=== PATIENT | female | born 1965 | race African-American/Black ===

== ENCOUNTER 2018-07-30 07:38 | Emergency (ER) | payer SELFPAY ==
[2018-07-30] MEDS ORDERED: NORMAL SALINE 1000 ML 1,000 ML IV ONE ×2 (08:11→09:55)
[2018-07-30] MEDS ORDERED: ONDANSETRON HCL INJ/PF 4 MG/2 ML SDV IV ONE (08:11)
[2018-07-30] MEDS ORDERED: DEXTROSE 5%-LACTATED RINGERS 1,000 ML IV ONE (09:17)
[2018-07-30 09:22] LABS: ABSOLUTE LYMPHOCYTES (AUTO) 0.6 10^3/uL (0.5-4.7); ABSOLUTE MONOCYTES (AUTO) 0.8 10^3/uL (0.1-1.4); ABSOLUTE NEUT (AUTO) 8.7 10^3/uL (1.7-8.2); BASOPHILS % (AUTO) 0.2 % (0-2); HEMATOCRIT 42.7 % (36.0-47.0); HEMOGLOBIN 14.7 g/dL (12.0-15.5); LYMPHOCYTES % (AUTO) 5.7 % (13-45); MEAN CORPUSCULAR HEMOGLOBIN 28.7 pg (27.0-33.4); MEAN CORPUSCULAR HGB CONC 34.4 g/dL (32.0-36.0); MEAN CORPUSCULAR VOLUME 84 fl (80-97); PLATELET COUNT 199 10^3/uL (150-450); RED BLOOD COUNT 5.11 10^6/uL (3.72-5.28); RED CELL DISTRIBUTION WIDTH 13.7 % (11.5-14.0); SEGMENTED NEUTROPHILS % (AUTO) 86.1 % (42-78); TOTAL CELLS COUNTED % (AUTO) 100 %; WHITE BLOOD COUNT 10.2 10^3/uL (4.0-10.5)
[2018-07-30 09:40] LABS: ALANINE AMINOTRANSFERASE 24 U/L (9-52); ALBUMIN 4.1 g/dL (3.5-5.0); ALKALINE PHOSPHATASE 123 U/L (38-126); ANION GAP 10 (5-19); ASPARTATE AMINO TRANSFERASE 21 U/L (14-36); BILIRUBIN,DIRECT 0.4 mg/dL (0.0-0.4); BLOOD UREA NITROGEN 11 mg/dL (7-20); CALCIUM 10.2 mg/dL (8.4-10.2); CARBON DIOXIDE 29 mmol/L (22-30); CHLORIDE 101 mmol/L (98-107); CREATINE KINASE 35 U/L (30-135); GLUCOSE 350 mg/dL (75-110); POTASSIUM 4.3 mmol/L (3.6-5.0); SODIUM 140.2 mmol/L (137-145); TOTAL PROTEIN 6.9 g/dL (6.3-8.2)
[2018-07-30 09:53] LABS: CREATINE KINASE MB < 0.22 ng/mL (<4.55); TROPONIN I < 0.012 ng/mL
[2018-07-30 10:04] LABS: APPEARANCE,URINE CLOUDY; BILIRUBIN,URINE NEGATIVE (NEGATIVE); COLOR,URINE YELLOW; GLUCOSE, URINE >=500 mg/dL (NEGATIVE); KETONES,URINE 20 mg/dL (NEGATIVE); LEUKOCYTE ESTERASE,URINE LARGE (NEGATIVE); NITRITE,URINE POSITIVE (NEGATIVE); PROTEIN,URINE NEGATIVE (NEGATIVE); URINE SPECIFIC GRAVITY 1.018
[2018-07-30 10:22] LABS: URINE AMPHETAMINES SCREEN NEGATIVE; URINE BARBITURATES SCREEN NEGATIVE; URINE BENZODIAZEPINES SCREEN NEGATIVE; URINE COCAINE SCREEN UNCONFIRMED POSITIVE; URINE MARIJUANA (THC) SCREEN UNCONFIRMED POSITIVE; URINE METHADONE SCREEN NEGATIVE; URINE PHENCYCLIDINE SCREEN NEGATIVE
[2018-07-30] MEDS ORDERED: CEFTRIAXONE 1 GM/D5W RTU 1 GM/50 ML RTUPB IV ONE (10:29)
[2018-07-30 12:30] VITALS: BP 127/82
--- NOTE | 2018-07-30 13:26 | EKG REPORT ---
SEVERITY:- ABNORMAL ECG - SINUS RHYTHM SHORT MD INTERVAL, ACCELERATED AV CONDUCTION RIGHT ATRIAL ABNORMALITY NONSPECIFIC T ABNORMALITIES, LATERAL LEADS : Confirmed by: Toi Parker MD 30-Jul-2018 13:26:24
--- NOTE | 2018-08-03 07:39 | ER Document Report ---
Entered by CHARLENE GUILLEN SCRIBE 07/30/18 0821 Acting as scribe for:LASHELL WISEMAN MD ED Flu Like - General Chief Complaint: Flu Symptoms Stated Complaint: BODY PAIN Time Seen by Provider: 07/30/18 08:01 Mode of Arrival: Wheelchair Information source: Patient Notes: 53-year-old female who presents to the emergency department today with complaints of feeling "generally weak" for the last 2 days with associated nausea and vomiting. Patient mentions that she developed right-sided abdominal pain yesterday as well. Patient denies any cough or fevers. TRAVEL OUTSIDE OF THE [place] IN LAST 30 DAYS: No - Related Data Allergies/Adverse Reactions: No Known Allergies Allergy (Verified 07/30/18 07:38) Past Medical History - General Information source: Patient - Social History Smoking Status: Current Every Day Smoker Cigarette use (# per day): Yes Lives with: Family Family History: Reviewed & Not Pertinent Review of Systems - Review of Systems Constitutional: See HPI, Weakness. denies: Fever EENT: No symptoms reported Cardiovascular: denies: Chest pain Respiratory: No symptoms reported Gastrointestinal: See HPI, Nausea, Vomiting Genitourinary: No symptoms reported Female Genitourinary: No symptoms reported Musculoskeletal: No symptoms reported Skin: No symptoms reported Hematologic/Lymphatic: No symptoms reported Neurological/Psychological: No symptoms reported -: Yes All other systems reviewed and negative Physical Exam - Vital signs Vitals: Temp Pulse Resp BP Pulse Ox 98.3 F 106 H 18 126/75 H 97 07/30/18 07:45 07/30/18 07:45 07/30/18 07:45 07/30/18 07:45 07/30/18 07:45 - Notes Notes: Physical Exam: General: Alert, appears well. HEENT: Normocephalic. Atraumatic. PERRL. Extraocular movements intact. Oropharynx clear. Dry mucous membranes. Neck: Supple. Non-tender. Respiratory: No respiratory distress. Clear and equal breath sounds bilaterally. Cardiovascular: Tachycardic, regular rhythm. Abdominal: Mild lower abdominal tenderness to palpation, mild right upper quadrant tenderness palpation. No distension. Normal Bowel Sounds. Back: Non-tender. No deformity or step off. Extremities: Moves all four extremities. Upper extremities: Normal inspection. Normal ROM. Lower extremities: Normal inspection. No edema. Normal ROM. Neurological: Normal cognition. AAOx4. Normal speech. Psychological: Normal affect. Normal Mood. Skin: Warm. Dry. Normal color. Course - Re-evaluation Re-evalutation: 07/30/18 09:55 Patient's blood sugar was reported at 350. Her second liter of fluid was D5LR, she had had about 100 mL's when the report came back so that was stopped and another liter of normal saline was given in place of the D5LR. 07/30/18 10:36 The patient's hemoglobin A1c was greater than 14, her urine showed a urinary tr act infection, drug screen was positive for cocaine and marijuana. - Vital Signs Vital signs: Temp Pulse Resp BP Pulse Ox 98.3 F 106 H 18 126/75 H 97 07/30/18 07:45 07/30/18 07:45 07/30/18 07:45 07/30/18 07:45 07/30/18 07:45 - Laboratory Result Diagrams: 07/30/18 09:03 07/30/18 09:03 Laboratory results interpreted by me: 07/30/18 07/30/18 07/30/18 09:03 09:03 09:03 Seg Neutrophils % 86.1 H Lymphocytes % 5.7 L Absolute Neutrophils 8.7 H Glucose 350 H Hemoglobin A1c % > 14.0 H Urine Glucose (UA) Urine Ketones Urine Blood Urine Nitrite Urine Urobilinogen Ur Leukocyte Esterase 07/30/18 09:45 Seg Neutrophils % Lymphocytes % Absolute Neutrophils Glucose Hemoglobin A1c % Urine Glucose (UA) >=500 H Urine Ketones 20 H Urine Blood MODERATE H Urine Nitrite POSITIVE H Urine Urobilinogen 2.0 H Ur Leukocyte Esterase LARGE H - EKG Interpretation by Me EKG shows normal: Sinus rhythm, Cecil, Intervals, QRS Complexes. abnormal: ST-T Waves - Nonspecific lateral T abnormalities Rate: Normal - 80 Rhythm: Other - Short UT interval, accelerated AV conduction P Waves: ALLISON When compared to previous EKG there are: Previous EKG unavailable Discharge - Discharge Clinical Impression: Cocaine abuse, Drug abuse, marijuana Urinary tract infection Qualifiers: Urinary tract infection type: site unspecified Hematuria presence: without hematuria Qualified Code(s): N39.0 - Urinary tract infection, site not specified Hyperglycemia due to type 2 diabetes mellitus Qualifiers: Diabetes mellitus nursing home insulin use: without nursing home use Qualified Code(s): E11.65 - Type 2 diabetes mellitus with hyperglycemia Nausea and vomiting Qualifiers: Vomiting type: unspecified Vomiting Intractability: non-intractable Qualified Code(s): R11.2 - Nausea with vomiting, unspecified Condition: Stable Disposition: HOME, SELF-CARE Additional Instructions: Urinary Tract Infection: Your evaluation indicates that you have a urinary tract infection. This is due to germs growing in the bladder. This is a common problem. This infection usually responds quickly to antibiotics. Your antibiotic should be taken exactly as prescribed. Drink plenty of fluids -- three to four quarts a day. Occasionally, a bladder anesthetic will be prescribed to help stop the feeling of urgency until the antibiotic has a chance to clear the infection. This may cause your urine to be dark orange. Certain urine infections require a culture. If the doctor obtained a culture, the results will be back in two days. You should call to see if a change in treatment is needed. A repeat urinalysis after you finish treatment is often recommended. The physician will let you know if further testing is required. Call the doctor if you develop fever, chills, flank pain, inability to urinate, or blood in the urine. Diabetes: You have an abnormally high blood sugar. This is called diabetes. Uncontrolled high blood sugar leads to early heart disease, strokes, nerve damage, eye damage, and kidney damage. All diabetics should follow a diet designed to control the blood sugar. Overweight diabetics should exercise regularly and lose weight. If this is not sufficient to control the blood sugar, pills or insulin shots are necessary. Younger people who develop diabetes almost always require insulin daily. Home testing of blood sugars or urine sugar is required. Diabetic teaching is available to help you figure insulin doses and monitor the blood sugar. Call the physician if there is faintness, excess sleepiness, or very rapid breathing. If hypoglycemia (LOW blood sugar) develops, symptoms are shakiness, weakness, sweating, and confusion. In this case, you should eat or drink something with sugar at once. Nausea or Vomiting, Nonspecific: Vomiting (or nausea without vomiting) can be caused by many different problems. Of course, it can mean that something's wrong with the stomach, such as "stomach flu," ulcers, or inflammation. But it can also be a symptom of a problem that has nothing to do with the stomach or intestines. Vomiting is common with severe headaches, earaches, and tonsillitis. We see it with pneumonia or heart attacks. Drugs can cause nausea. Many abdominal problems cause vomiting; for example, gallstones, kidney stones, pancreatitis, and intestinal obstruction (blocked bowels). In most cases, curing the vomiting depends on fixing the problem that caused it. For temporary relief, we may use an anti-nausea medicine. For home use, we can prescribe suppositories, chewable pills, pills that dissolve in the mouth, or liquid anti-nausea drugs. If the vomiting seems to be caused by a problem in the stomach, acid-suppressing drugs may be prescribed as well. It's important to avoid dehydration. Sip clear liquids. Take increasing amounts of fluid over the first 24 hours. Then start small amounts of bland foods (such as dry toast, applesauce, mashed potato). Avoid aspirin, tobacco, and alcohol. Gradually resume your usual diet. If the vomiting worsens, if the problem that's making you vomit worsens, or if there's evidence of bleeding in the stomach (such as black, tarry stool, bloody or black vomit, or lightheadedness), you should return immediately. Call your doctor if you aren't improved in 24 to 36 hours. Cocaine Abuse: Cocaine causes many dangerous medical problems. Problems can occur even with "usual" amounts. Cocaine affects judgement, creating a sense of invulnerability. Cocaine users often make bad decisions that seem "great" at the time. Most cocaine users eventually will be hurt by bad job performance, damaged personal relations, crime, and unsafe sexual practices. Toxic effects of cocaine can include seizures, hallucinations, delusions, high blood pressure, heart damage, or sudden . There's always the risk of a "bad batch." But heart attacks, brain hemorrhages, or cardiac arrest can occur unpredictably even with "normal" use. Injection of cocaine is risky for abscesses, endocarditis (heart infection), pneumonia, and AIDS. Withdrawal from cocaine often causes anxiety and drug cravings. Some users become paranoid and psychotic. Many treatment programs are available, but you must make the decision to quit. Medication can be prescribed to control the symptoms of cocaine toxicity (beta blockers or benzodiazepines). Withdrawal symptoms may require tranquilizers. Take the medications as prescribed. Drink plenty of fluids. Try to stop using illicit drugs. You are given a 30-day supply of the diabetes medicine. You should get a primary care provider to manage her diabetes before you run out of the medicine. RETURN TO THE EMERGENCY ROOM IF ANY NEW OR WORSENING SYMPTOMS. Prescriptions: Doxycycline Hyclate 100 mg PO BID #14 tablet. Glipizide [Glucotrol 5 mg Tablet] 5 mg PO DAILY #30 tablet I personally performed the services described in the documentation, reviewed and edited the documentation which was dictated to the scribe in my presence, and it accurately records my words and actions.
== END 2018-07-30 12:28 | disposition home or self-care (01) ==
LOC: ER 07:38
DX: N39.0 Urinary tract infection, site not specified (principal); E11.65 Type 2 diabetes mellitus with hyperglycemia; R53.1 Weakness; R11.2 Nausea with vomiting, unspecified; F14.10 Cocaine abuse, uncomplicated; F12.10 Cannabis abuse, uncomplicated; R00.0 Tachycardia, unspecified; F17.210 Nicotine dependence, cigarettes, uncomplicated
CPT/HCPCS: 93005; 36415; 87086; 82553; 82550; 85025; 87088; 80053; 81001; 84484; 87186; 80307; 83036; 83605; 93010; J2405; J7030; J0696

== ENCOUNTER 2018-08-27 15:38 | Inpatient (IN) | payer SELFPAY ==
[2018-08-27] MEDS ORDERED: NORMAL SALINE 1000 ML 1,000 ML IV ONE ×2 (15:51→16:23)
[2018-08-27 16:19] LABS: VENOUS BLOOD BASE EXCESS -12.1 mmol/L; VENOUS BLOOD HCO3 14.8 mmol/L (20-32); VENOUS BLOOD PCO2 37.3 mmHg (35-63); VENOUS BLOOD PH 7.22 (7.30-7.42)
[2018-08-27 16:20] LABS: HEMATOCRIT 49.7 % (36.0-47.0); HEMOGLOBIN 16.3 g/dL (12.0-15.5); MEAN CORPUSCULAR HEMOGLOBIN 28.1 pg (27.0-33.4); MEAN CORPUSCULAR HGB CONC 32.7 g/dL (32.0-36.0); MEAN CORPUSCULAR VOLUME 86 fl (80-97); PLATELET COUNT 210 10^3/uL (150-450); RED BLOOD COUNT 5.79 10^6/uL (3.72-5.28); WHITE BLOOD COUNT 26.3 10^3/uL (4.0-10.5)
--- NOTE | 2018-08-27 16:22 | ER Document Report ---
ED Blood Sugar Problem - General Chief Complaint: High Blood Sugar Stated Complaint: SUGAR LEVELS Time Seen by Provider: 08/27/18 15:51 Mode of Arrival: Stretcher Information source: Emergency Med Personnel TRAVEL OUTSIDE OF THE [place] IN LAST 30 DAYS: No - HPI Patient complains to provider of: High blood sugar, confused, vomiting Onset: Other - 3-4 days Onset/Duration: Gradual - Patient Quality of pain: Achy Severity: Moderate Pain Level: 3 Associated symptoms: Confusion, Dry mucous membranes - I called at 330, Nausea, Weakness Notes: Patient is a 53-year-old female who is a known diabetic, presenting to the emergency room today via EMS for nausea and vomiting x3 or 4 days, with decreased p.o. intake, confusion, combative, complaining of pain everywhere, with blood sugar measuring high on EMS glucometer, they report that their glucometer reads up to 750, anything above that is just read as high, EMS notes that her initial blood pressure was 90/50, they did provide IV fluids in route, they also found a bottle of glipizide that is prescribed to patient - Related Data Allergies/Adverse Reactions: No Known Allergies Allergy (Verified 07/30/18 07:38) Past Medical History - General Information source: Patient, Emergency Med Personnel - Social History Smoking Status: Unknown if Ever Smoked Family History: Reviewed & Not Pertinent Renal/ Medical History: Denies: Hx Peritoneal Dialysis Review of Systems - Review of Systems Constitutional: No symptoms reported EENT: No symptoms reported Cardiovascular: No symptoms reported Respiratory: No symptoms reported Gastrointestinal: See HPI, Nausea, Vomiting, Poor appetite, Poor fluid intake. denies: Abdominal pain Genitourinary: No symptoms reported Female Genitourinary: No symptoms reported Musculoskeletal: No symptoms reported Skin: No symptoms reported Hematologic/Lymphatic: No symptoms reported Neurological/Psychological: Confusion -: Yes All other systems reviewed and negative Physical Exam - Vital signs Vitals: Resp 22 H 08/27/18 16:00 Interpretation: Hypotensive, Tachycardic - General General appearance: Combative, Lethargic In distress: Moderate - HEENT Head: Normocephalic, Atraumatic Eyes: Normal Conjunctiva: Normal Eyelashes: Normal Pupils: PERRL Mucous membranes: Dry - With vomitus on breath Pharynx: Normal Neck: Normal - Respiratory Respiratory status: No respiratory distress Chest status: Nontender Breath sounds: Normal Chest palpation: Normal - Cardiovascular Rhythm: Irregularly irregular, Tachycardia - Abdominal Inspection: Normal Distension: No distension Bowel sounds: Normal Tenderness: Tender - Mild epigastric tenderness Organomegaly: No organomegaly - Back Back: Normal - Extremities General upper extremity: Normal inspection General lower extremity: Normal inspection - Neurological Orientation: Disoriented to events [place] Coma Scale Eye Opening: Spontaneous [place] Coma Scale Verbal: Confused [place] Coma Scale Motor: Obeys Commands [place] Coma Scale Total: 14 - Skin Skin Temperature: Warm Skin Moisture: Dry Skin Color: Normal Course - Re-evaluation Re-evalutation: 08/27/18 17:01 Patient mental status is improving, she is answering questions more ap propriately, she does remain tachycardic and appears to be in atrial fibrillation on the EKG. However on arrival her blood pressure was low, she appeared dry and had been vomiting for 3-5 days and patient denied any congestive heart failure so IV fluids were administered as first-line treatment. Although her Accu-Chek was read as high, no insulin was initially given to the patient as I was awaiting serum studies to confirm that her potassium was adequate and that no potassium replacement was required before providing insulin, immediately upon receiving patient's serum studies an insulin drip was ordered and the nursing staff was notified that this would be needed STAT, patient is noted to have significant leukocytosis, as well as WILLIE, leukocytosis and dehydration could be secondary to her excessive vomiting for 3 days, since she is dry she has not yet provided us with a urine for urinalysis to confirm presence or absence of a urinary tract infection, she does remain tachycardic in atrial fibrillation with RVR, however her blood pressure has been somewhat unstable secondary to her dehydration, therefore rate controlling medications have been held at this point in time, will plan to admit to ICU for diabetic ketoacidosis Patient discussed with hospitalist, Dr. Sifuentes who accepts for admission 08/27/18 19:19 Reviewed patient's urinalysis, evidence of urinary tract infection, I attempted to order a dose of Rocephin, however hospitalist service has already ordered it - Vital Signs Vital signs: Temp Pulse Resp BP Pulse Ox 99 F 20 112/85 96 08/27/18 18:45 08/27/18 19:47 08/27/18 19:31 08/27/18 19:47 - Laboratory Result Diagrams: 08/27/18 16:10 08/27/18 20:51 Laboratory results interpreted by me: 08/27/18 08/27/18 08/27/18 16:10 16:10 16:10 WBC 26.3 H RBC 5.79 H Hgb 16.3 H Hct 49.7 H RDW 16.0 H Seg Neuts % (Manual) 91 H Lymphocytes % (Manual) 3 L Abs Neuts (Manual) 23.9 H Abs Monocytes (Manual) 1.6 H VBG pH VBG HCO3 Sodium 131.0 L Chloride 85 L Carbon Dioxide 16 L Anion Gap 30 H BUN 61 H Creatinine 1.76 H Est GFR ( Amer) 36 L Est GFR (Non-Af Amer) 30 L Glucose 668 H* Serum Osmolality 337 H Direct Bilirubin 0.7 H Alkaline Phosphatase 215 H Albumin 3.4 L Urine Protein Urine Glucose (UA) Urine Ketones Urine Blood Ur Leukocyte Esterase 08/27/18 08/27/18 16:10 16:53 WBC RBC Hgb Hct RDW Seg Neuts % (Manual) Lymphocytes % (Manual) Abs Neuts (Manual) Abs Monocytes (Manual) VBG pH 7.22 L VBG HCO3 14.8 L Sodium Chloride Carbon Dioxide Anion Gap BUN Creatinine Est GFR ( Amer) Est GFR (Non-Af Amer) Glucose Serum Osmolality Direct Bilirubin Alkaline Phosphatase Albumin Urine Protein 30 H Urine Glucose (UA) >=500 H Urine Ketones 20 H Urine Blood LARGE H Ur Leukocyte Esterase MODERATE H - EKG Interpretation by Me Rate: Tachycardia Rhythm: A.Fib Critical Care Note - Critical Care Note Total time excluding time spent on procedures (mins): 45 Comments: Patient arrived confused, unable to provide an adequate history, Accu-Chek read as high Discharge - Discharge Clinical Impression: Diabetic ketoacidosis Qualifiers: Diabetes mellitus type: type 2 Condition: Serious Disposition: ADMITTED INPATIENT Admitting Provider: Hospitalist Unit Admitted: ICU
[2018-08-27 16:36] LABS: BLOOD UREA NITROGEN 61 mg/dL (7-20); CALCIUM 9.6 mg/dL (8.4-10.2)
[2018-08-27 16:37] LABS: ALANINE AMINOTRANSFERASE 20 U/L (9-52); ALBUMIN 3.4 g/dL (3.5-5.0); ALKALINE PHOSPHATASE 215 U/L (38-126); ASPARTATE AMINO TRANSFERASE 26 U/L (14-36); BILIRUBIN,DIRECT 0.7 mg/dL (0.0-0.4); BILIRUBIN,TOTAL 0.8 mg/dL (0.2-1.3); POTASSIUM 3.6 mmol/L (3.6-5.0); TOTAL PROTEIN 6.9 g/dL (6.3-8.2)
[2018-08-27 16:42] LABS: ABSOLUTE LYMPHOCYTES# (MANUAL) 0.8 10^3/uL (0.5-4.7); ABSOLUTE MONOCYTES # (MANUAL) 1.6 10^3/uL (0.1-1.4); ABSOLUTE NEUTROPHILS# (MANUAL) 23.9 10^3/uL (1.7-8.2); BASOPHILS % (MANUAL) 0 % (0-2); CARBON DIOXIDE 16 mmol/L (22-30); CHLORIDE 85 mmol/L (98-107); EOSINOPHILS % (MANUAL) 0 % (0-6); LYMPHOCYTES % (MANUAL) 3 % (13-45); MONOCYTES % (MANUAL) 6 % (3-13); SEGMENTED NEUTROPHILS % (MAN) 91 % (42-78); TOTAL CELLS COUNTED 100
[2018-08-27 16:45] LABS: ANISOCYTOSIS SLIGHT; PLATELET COMMENT ADEQUATE; POIKILOCYTOSIS SLIGHT; TEAR DROP CELLS SLIGHT; TOXIC GRANULATION 1+; TOXIC VACUOLATION PRESENT
[2018-08-27 16:46] LABS: ANION GAP 30 (5-19)
[2018-08-27 16:47] LABS: GLUCOSE 668 mg/dL (75-110)
[2018-08-27] MEDS ORDERED: DEXTROSE 40% GEL 15 GM TUBE PO PRN ×6 (16:54→17:36)
[2018-08-27] MEDS ORDERED: GLUCAGON,HUMAN RECOMB 1 MG INJ IM PRN ×2 (16:54→17:36)
[2018-08-27] MEDS ORDERED: DEXTROSE 50%-WATER 25 GM/50 ML DISP.SYRIN IV PRN ×6 (16:54→17:36)
[2018-08-27] MEDS ORDERED: INSULIN REG, HUMAN 100 UNIT/ML 3 ML VIAL (PYX) ONE (17:10)
[2018-08-27 17:22] LABS: APPEARANCE,URINE CLOUDY; BILIRUBIN,URINE NEGATIVE (NEGATIVE); COLOR,URINE YELLOW; GLUCOSE, URINE >=500 mg/dL (NEGATIVE); KETONES,URINE 20 mg/dL (NEGATIVE); LEUKOCYTE ESTERASE,URINE MODERATE (NEGATIVE); NITRITE,URINE NEGATIVE (NEGATIVE); PROTEIN,URINE 30 mg/dL (NEGATIVE); URINE SPECIFIC GRAVITY 1.014; UROBILINOGEN,URINE NEGATIVE mg/dL (<2.0)
[2018-08-27] MEDS: NORMAL SALINE 100 ML with INSULIN REGULAR, HUMAN 100 UNIT IV PRN ×2 (17:27)
[2018-08-27] MEDS ORDERED: PROMETHAZINE HCL INJ 25 MG/1 ML VIAL IV PRN (17:32)
[2018-08-27] MEDS ORDERED: ONDANSETRON HCL INJ/PF 4 MG/2 ML SDV IV PRN (17:32)
[2018-08-27] MEDS ORDERED: NORMAL SALINE 1000 ML 1,000 ML IV PRN (17:32)
[2018-08-27] MEDS ORDERED: GLUCAGON,HUMAN RECOMB 1 MG INJ SUBCUT PRN (17:32)
[2018-08-27 17:34] LABS: URINE AMPHETAMINES SCREEN NEGATIVE; URINE BARBITURATES SCREEN NEGATIVE; URINE BENZODIAZEPINES SCREEN NEGATIVE; URINE COCAINE SCREEN UNCONFIRMED POSITIVE; URINE MARIJUANA (THC) SCREEN NEGATIVE; URINE METHADONE SCREEN NEGATIVE; URINE PHENCYCLIDINE SCREEN NEGATIVE
[2018-08-27] MEDS ORDERED: NORMAL SALINE 100 ML with INSULIN REGULAR, HUMAN 100 UNIT IV PRN ×2 (17:36)
[2018-08-27] MEDS ORDERED: DILTIAZEM HCL INJ 25 MG/5 ML VIAL IV ONE (18:13)
--- NOTE | 2018-08-27 18:13 | PDOC H&P ---
History of Present Illness Admission Date/PCP: 08/27/18 17:14 Patient complains of: Patient brought in by EMS with complaints of high blood sugars. History of Present Illness: DENAE PEDERSEN is a 53 year old female with history of diabetes mellitus brought in by EMS with complaints of nausea vomiting for 3-4 days. Unable to get any information from the patient. EMS documented the blood sugar of 750. In the emergency room the fingerstick for glucose was high. No insulin was given until the serum glucose came back at 658. On discussion with the ER physician why no subq insulin was she became defensive and agitated and told me she has to wait for the serum glucose report by the lab test before giving the subcu insulin. I did report the incident to Dr. grewal hospitalist director. pt is in atrial fib with heart rate of 157 the issue is not addressed in the ER. Examination patient is unable to provide any history. Patient is combative. In the emergency room patient received 2 L of normal saline. Found to be urine drug screen is positive for marijuana and cocaine. Patient is going to be placed in IMCU. Past Medical History Cardiac Medical History: Reports: Atrial Fibrillation Endocrine Medical History: Reports: Diabetes Mellitus Type 2 Past Surgical History Past Surgical History: Reports: None Social History Information Source: Patient Smoking Status: Current Some Day Smoker Drugs: Cocaine, Marijuana - Advance Directive Resuscitation Status: Full Code Family History Family History: Reviewed & Not Pertinent Parental Family History Reviewed: Yes Children Family History Reviewed: Yes Sibling(s) Family History Reviewed.: Yes Medication/Allergy Home Medications: Doxycycline Hyclate 100 mg PO BID #14 tablet. 07/30/18 Glipizide [Glucotrol 5 mg Tablet] 5 mg PO DAILY #30 tablet 07/30/18 Allergies/Adverse Reactions: No Known Allergies Allergy (Verified 07/30/18 07:38) Review of Systems ROS unobtainable: Other - Patient is agitated and combative unable to get any history at all. Physical Exam Vital Signs: Temp Pulse Resp BP Pulse Ox 99.3 F 20 135/93 H 98 08/27/18 16:33 08/27/18 17:16 08/27/18 17:16 08/27/18 17:00 Intake & Output 08/26/18 08/27/18 08/28/18 06:59 06:59 06:59 Weight 70 kg General appearance: PRESENT: other - Mild to moderate distress Head exam: PRESENT: atraumatic Eye exam: PRESENT: PERRLA Mouth exam: PRESENT: moist, tongue midline Teeth exam: PRESENT: poor dentation Neck exam: ABSENT: carotid bruit, JVD, lymphadenopathy, thyromegaly Respiratory exam: PRESENT: clear to auscultation heather. ABSENT: rales, rhonchi, wheezes Cardiovascular exam: PRESENT: irregular rhythm, tachycardia GI/Abdominal exam: PRESENT: normal bowel sounds, soft. ABSENT: distended, guarding, mass, organolmegaly, rebound, tenderness Extremities exam: PRESENT: full ROM. ABSENT: calf tenderness, clubbing, pedal edema Neurological exam: PRESENT: alert, awake, oriented to person, oriented to place, oriented to time, oriented to situation, CN II-XII grossly intact. ABSENT: motor sensory deficit Skin exam: PRESENT: dry, intact, warm. ABSENT: cyanosis, rash Results Laboratory Results: 08/27/18 16:10 08/27/18 16:10 08/27/18 08/27/18 08/27/18 16:10 16:10 16:10 WBC 26.3 H RBC 5.79 H Hgb 16.3 H Hct 49.7 H MCV 86 MCH 28.1 MCHC 32.7 RDW 16.0 H Plt Count 210 Seg Neutrophils % Not Reportable Lymphocytes % Not Reportable Monocytes % Not Reportable Eosinophils % Not Reportable Basophils % Not Reportable Absolute Neutrophils Not Reportable Absolute Lymphocytes Not Reportable Absolute Monocytes Not Reportable Absolute Eosinophils Not Reportable Absolute Basophils Not Reportable VBG pH VBG pCO2 VBG HCO3 VBG Base Excess Sodium 131.0 L Potassium 3.6 Chloride 85 L Carbon Dioxide 16 L Anion Gap 30 H BUN 61 H Creatinine 1.76 H Est GFR ( Amer) 36 L Est GFR (Non-Af Amer) 30 L Glucose 668 H* Serum Osmolality 337 H Calcium 9.6 Total Bilirubin 0.8 AST 26 ALT 20 Alkaline Phosphatase 215 H Total Protein 6.9 Albumin 3.4 L Urine Color Urine Appearance Urine pH Ur Specific [place] Urine Protein Urine Glucose (UA) Urine Ketones Urine Blood Urine Nitrite Ur Leukocyte Esterase Urine WBC (Auto) Urine RBC (Auto) 08/27/18 08/27/18 16:10 16:53 WBC RBC Hgb Hct MCV MCH MCHC RDW Plt Count Seg Neutrophils % Lymphocytes % Monocytes % Eosinophils % Basophils % Absolute Neutrophils Absolute Lymphocytes Absolute Monocytes Absolute Eosinophils Absolute Basophils VBG pH 7.22 L VBG pCO2 37.3 VBG HCO3 14.8 L VBG Base Excess -12.1 Sodium Potassium Chloride Carbon Dioxide Anion Gap BUN Creatinine Est GFR ( Amer) Est GFR (Non-Af Amer) Glucose Serum Osmolality Calcium Total Bilirubin AST ALT Alkaline Phosphatase Total Protein Albumin Urine Color YELLOW Urine Appearance CLOUDY Urine pH 5.0 Ur Specific [place] 1.014 Urine Protein 30 H Urine Glucose (UA) >=500 H Urine Ketones 20 H Urine Blood LARGE H Urine Nitrite NEGATIVE Ur Leukocyte Esterase MODERATE H Urine WBC (Auto) 77 Urine RBC (Auto) 2 Assessment and Plan - Diagnosis (1) Diabetic ketoacidosis Qualifiers: Diabetes mellitus type: type 2 Is this a current diagnosis for this admission?: Yes Plan: 08/27/2018-patient is going to be admitted under IMCU and patient was to start on insulin drip per protocol as She is also going to receive IV fluids normal saline at 150 cc/h. Plan is to recheck the labs this evening. Patient is going to be n.p.o. Lab work as per DKA protocol. GI prophylaxis was ordered. Soft restraints are ordered because patient was agitated. Smith's catheter was placed and she was also started on IV antibiotic therapy because WBC count is 26,000. Hemoglobin A1c was requested for tomorrow. And to arrange for a dietary consult. (2) Atrial fibrillation Qualifiers: Atrial fibrillation type: chronic Qualified Code(s): I48.2 - Chronic atrial fibrillation Is this a current diagnosis for this admission?: No Plan: 08/27/2018-pt has chronic atrial fib , heart rate is 157 to start on cardiazem drip and to give bolus 20 mg iv . placed on cardiac monitoring and to check cardiac enzymes times 3. atrial fib rvr most like;ly sec to dka and severe dehydration. (3) Polysubstance abuse Is this a current diagnosis for this admission?: No Plan: 08/27/2018 patient found to have drug screen positive for marijuana and cocaine. Plan to put on IV Ativan 1 mg every 4 as needed for agitation and prevent withdrawal symptoms, she was placed on soft exercise. Psych consult is going to be requested. (4) HTN (hypertension) Is this a current diagnosis for this admission?: No Plan: 08/27/2018-patient has history of hypertension blood pressure is 135/83. I am going to put her on IV hydralazine 10 mg every 6 hours as needed for BP more than 150. - Time Time Spent with patient: 15-24 minutes Smoking Cessation Education: over 10 minutes Medications reviewed and adjusted accordingly: Yes Anticipated discharge: Home
[2018-08-27] MEDS ORDERED: DILTIAZEM HCL INJ 25 MG/5 ML VIAL ONE (18:14)
[2018-08-27] MEDS ORDERED: DILTIAZEM HCL/D5W 125 MG/125 ML RTUINJ IV ONE (18:14)
--- NOTE | 2018-08-27 18:34 | RADIOLOGY REPORT (SQ) ---
EXAM DESCRIPTION: CHEST SINGLE VIEW COMPLETED DATE/TIME: 08/27/2018 6:05 pm REASON FOR STUDY: sepsis COMPARISON: None. EXAM PARAMETERS: NUMBER OF VIEWS: One view. TECHNIQUE: Single frontal radiographic view of the chest acquired. RADIATION DOSE: NA LIMITATIONS: None. FINDINGS: LUNGS AND PLEURA: No opacities, masses or pneumothorax. No pleural effusion. MEDIASTINUM AND HILAR STRUCTURES: No masses. Contour normal. HEART AND VASCULAR STRUCTURES: Heart normal in size. Normal vasculature. BONES: No acute findings. HARDWARE: None in the chest. OTHER: No other significant finding. IMPRESSION: NO ACUTE RADIOGRAPHIC FINDING IN THE CHEST. TECHNICAL DOCUMENTATION: JOB ID: [id number] 2010 [employer]- All Rights Reserved Reading location - IP/workstation name: [facility]
[2018-08-27] MEDS: DILTIAZEM HCL/D5W 125 MG/125 ML RTUINJ IV PRN (18:40)
[2018-08-27 21:15] LABS: ALANINE AMINOTRANSFERASE 26 U/L (9-52); ALBUMIN 2.4 g/dL (3.5-5.0); ALKALINE PHOSPHATASE 198 U/L (38-126); ASPARTATE AMINO TRANSFERASE 16 U/L (14-36); BILIRUBIN,DIRECT 0.5 mg/dL (0.0-0.4); BILIRUBIN,TOTAL 0.6 mg/dL (0.2-1.3); BLOOD UREA NITROGEN 54 mg/dL (7-20); CALCIUM 8.5 mg/dL (8.4-10.2); POTASSIUM 3.1 mmol/L (3.6-5.0)
[2018-08-27 21:20] LABS: CARBON DIOXIDE 12 mmol/L (22-30); CHLORIDE 101 mmol/L (98-107); SODIUM 137.3 mmol/L (137-145)
[2018-08-27 21:22] LABS: ANION GAP 24 (5-19)
[2018-08-27 21:24] LABS: GLUCOSE 526 mg/dL (75-110)
--- NOTE | 2018-08-27 22:18 | EKG REPORT ---
SEVERITY:- ABNORMAL ECG - ATRIAL FIBRILLATION, V-RATE 77-192 PROBABLE LVH WITH SECONDARY REPOL ABNRM ANTERIOR Q WAVES, POSSIBLY DUE TO LVH BORDERLINE PROLONGED QT INTERVAL : Confirmed by: Karlie Burris 27-Aug-2018 22:16:53
--- NOTE | 2018-08-27 22:18 | EKG REPORT ---
SEVERITY:- ABNORMAL ECG - ATRIAL FIBRILLATION MULTIPLE VENTRICULAR PREMATURE COMPLEXES CONSIDER LEFT VENTRICULAR HYPERTROPHY ANTERIOR Q WAVES, POSSIBLY DUE TO LVH BORDERLINE PROLONGED QT INTERVAL : Confirmed by: Karlie Burris 27-Aug-2018 22:17:18
[2018-08-27] MEDS: FAMOTIDINE INJ/PF 20 MG/2 ML SDV IV SCH (23:02)
[2018-08-27] MEDS: CEFTRIAXONE 2 GM/D5W RTU 2 GM/50 ML RTUPB IV SCH (23:02)
[2018-08-27] MEDS: LEVOFLOXACIN 750 MG/D5W RTU 750 MG/150 ML RTUPB IV SCH (23:40)
[2018-08-28] MEDS: LORAZEPAM INJ 2 MG/1 ML VIAL IV PRN ×2 (00:45→13:29)
[2018-08-28 06:29] LABS: HEMATOCRIT 42.6 % (36.0-47.0); HEMOGLOBIN 14.9 g/dL (12.0-15.5); MEAN CORPUSCULAR HEMOGLOBIN 28.3 pg (27.0-33.4); MEAN CORPUSCULAR HGB CONC 34.9 g/dL (32.0-36.0); PLATELET COUNT 140 10^3/uL (150-450); RED BLOOD COUNT 5.25 10^6/uL (3.72-5.28); RED CELL DISTRIBUTION WIDTH 14.9 % (11.5-14.0)
[2018-08-28 06:36] LABS: MEAN CORPUSCULAR VOLUME 81 fl (80-97)
[2018-08-28] MEDS ORDERED: DEXTROSE 5%-NORMAL SALINE 1,000 ML IV PRN (06:40)
[2018-08-28 06:41] LABS: WHITE BLOOD COUNT 30.3 10^3/uL (4.0-10.5)
[2018-08-28 06:42] LABS: CREATINE KINASE MB 0.75 ng/mL (<4.55)
[2018-08-28 07:16] LABS: ABSOLUTE LYMPHOCYTES# (MANUAL) 2.4 10^3/uL (0.5-4.7); ABSOLUTE MONOCYTES # (MANUAL) 0.9 10^3/uL (0.1-1.4); BAND NEUTROPHILS % (MANUAL) 3 % (3-5); BASOPHILS % (MANUAL) 0 % (0-2); EOSINOPHILS % (MANUAL) 0 % (0-6); LYMPHOCYTES % (MANUAL) 7 % (13-45); MONOCYTES % (MANUAL) 3 % (3-13); PLATELET COMMENT DECREASED; SEGMENTED NEUTROPHILS % (MAN) 86 % (42-78); TOTAL CELLS COUNTED 100
[2018-08-28 07:17] LABS: TOXIC GRANULATION 1+; TOXIC VACUOLATION PRESENT
[2018-08-28 07:18] LABS: TARGET CELLS 1+
[2018-08-28] MEDS: POTASSI CL 20 MEQ/50 ML RIDER 20 MEQ/50 ML RTUPB IV SCH ×4 (08:48→15:39)
[2018-08-28 08:54] LABS: ARTERIAL BLOOD BASE EXCESS 1.9 mmol/L; ARTERIAL BLOOD H2CO3 1.04 mmol/L (1.05-1.35); ARTERIAL BLOOD HCO3 24.9 mmol/L (20-24); ARTERIAL BLOOD O2 SATURATION 95.5 % (94-98); ARTERIAL BLOOD PCO2 34.4 mmHg (35-45); ARTERIAL BLOOD PH 7.48 (7.35-7.45); ARTERIAL BLOOD TOTAL CO2 25.9 mmol/L (21-25)
[2018-08-28 08:55] LABS: ARTERIAL BLOOD FIO2 ROOM AIR
[2018-08-28] MEDS: NORMAL SALINE 100 ML with INSULIN REGULAR, HUMAN 100 UNIT IV PRN ×2 (08:55)
[2018-08-28] MEDS: FAMOTIDINE INJ/PF 20 MG/2 ML SDV IV SCH ×2 (09:02→21:30)
[2018-08-28] MEDS: NICOTINE 21 MG/24 HR PATCH.TD24 TD SCH (09:02)
[2018-08-28] MEDS: DILTIAZEM HCL/D5W 125 MG/125 ML RTUINJ IV PRN (09:03)
[2018-08-28] MEDS: ENOXAPARIN SODIUM INJ 40 MG/0.4 ML DISP.SYRIN SUBCUT SCH (09:04)
[2018-08-28] MEDS ORDERED: INSULIN, REGULAR 100 UNIT/100 ML NORMAL SALINE IV PRN ×2 (09:30)
[2018-08-28 09:52] LABS: ALANINE AMINOTRANSFERASE 24 U/L (9-52); ALBUMIN 2.5 g/dL (3.5-5.0); ALKALINE PHOSPHATASE 177 U/L (38-126); ANION GAP 9 (5-19); ASPARTATE AMINO TRANSFERASE 18 U/L (14-36); BILIRUBIN,DIRECT 0.4 mg/dL (0.0-0.4); BILIRUBIN,TOTAL 0.5 mg/dL (0.2-1.3); BLOOD UREA NITROGEN 49 mg/dL (7-20); CALCIUM 9.5 mg/dL (8.4-10.2); CHLORIDE 111 mmol/L (98-107); CHOLESTEROL 134.39 mg/dL (0-200); CREATINE KINASE 24 U/L (30-135); GLUCOSE 90 mg/dL (75-110); SODIUM 147.3 mmol/L (137-145); TOTAL PROTEIN 5.3 g/dL (6.3-8.2); TRIGLYCERIDES 234 mg/dL (<150)
[2018-08-28 10:02] LABS: DIRECT LDL 73 mg/dL (<100)
[2018-08-28 10:05] LABS: CARBON DIOXIDE 27 mmol/L (22-30); VLDL CHOLESTEROL 46.8 mg/dL (10-31)
[2018-08-28 10:07] LABS: POTASSIUM 2.4 mmol/L (3.6-5.0)
[2018-08-28] MEDS ORDERED: GLUCAGON,HUMAN RECOMB 1 MG INJ IM PRN (10:59)
[2018-08-28] MEDS ORDERED: DEXTROSE 40% GEL 15 GM TUBE PO PRN ×2 (10:59)
[2018-08-28] MEDS ORDERED: DEXTROSE 50%-WATER 25 GM/50 ML DISP.SYRIN IV PRN ×2 (10:59)
[2018-08-28] MEDS ORDERED: INSULIN GLARGINE,HUM.REC.ANLOG 1,000 UNIT/10 ML VIAL SUBCUT SCH (11:30)
--- NOTE | 2018-08-28 11:35 | PDOC PROGRESS REPORT ---
Subjective Progress Note for:: 08/28/18 Subjective:: 53 year old female with history of diabetes mellitus brought in by EMS with complaints of nausea vomiting for 3-4 days. Unable to get any information from the patient. EMS documented the blood sugar of 750. In the emergency room the fingerstick for glucose was high. No insulin was given until the serum glucose came back at 658. On discussion with the ER physician why no subq insulin was she became defensive and agitated and told me she has to wait for the serum glucose report by the lab test before giving the subcu insulin. I did report the incident to Dr. grewal hospitalist director. pt is in atrial fib with heart rate of 157 the issue is not addressed in the ER. Examination patient is unable to provide any history. Patient is combative. In the emergency room patient received 2 L of normal saline. Found to be urine drug screen is positive for marijuana and cocaine. Patient is going to be placed in IMCU. 08/28/2018-no acute events in the last 24 hours. Patient converted to sinus rhythm this morning. He is going to turn off the Cardizem drip start on p.o. Cardizem 60 mg every 8 hours. Blood sugars came down to close to 150s insulin drip was discontinued plan is to start her on diabetic diet with Lantus 30 units twice a day insulin sliding scale before meals and at bedtime and discontinue D5W. History of polysubstance abuse we going to request for psych consult. Reason For Visit: DIABETIC KETOACIDOSIS Physical Exam Vital Signs: Temp Pulse Resp BP Pulse Ox 97.8 F 91 18 165/64 H 96 08/28/18 08:00 08/28/18 08:00 08/28/18 08:00 08/28/18 08:00 08/28/18 08:00 Intake & Output 08/27/18 08/28/18 08/29/18 06:59 06:59 06:59 Intake Total 3314 531 Output Total 1350 Balance 1964 531 Weight 67.2 kg General appearance: PRESENT: no acute distress Head exam: PRESENT: atraumatic Eye exam: PRESENT: PERRLA Teeth exam: PRESENT: poor dentation Neck exam: ABSENT: carotid bruit, JVD, lymphadenopathy, thyromegaly Respiratory exam: PRESENT: clear to auscultation heather. ABSENT: rales, rhonchi, wheezes Cardiovascular exam: PRESENT: tachycardia GI/Abdominal exam: PRESENT: normal bowel sounds, soft. ABSENT: distended, guarding, mass, organolmegaly, rebound, tenderness Extremities exam: PRESENT: full ROM. ABSENT: calf tenderness, clubbing, pedal edema Neurological exam: PRESENT: alert, awake, oriented to person, oriented to place, oriented to time, oriented to situation, CN II-XII grossly intact. ABSENT: motor sensory deficit Psychiatric exam: PRESENT: appropriate affect, normal mood. ABSENT: homicidal ideation, suicidal ideation Results Laboratory Results: 08/28/18 06:06 08/28/18 09:25 08/27/18 08/27/18 08/27/18 16:10 16:10 16:10 WBC 26.3 H RBC 5.79 H Hgb 16.3 H Hct 49.7 H MCV 86 MCH 28.1 MCHC 32.7 RDW 16.0 H Plt Count 210 Seg Neutrophils % Not Reportable Lymphocytes % Not Reportable Monocytes % Not Reportable Eosinophils % Not Reportable Basophils % Not Reportable Absolute Neutrophils Not Reportable Absolute Lymphocytes Not Reportable Absolute Monocytes Not Reportable Absolute Eosinophils Not Reportable Absolute Basophils Not Reportable Carbonic Acid HCO3/H2CO3 Ratio ABG pH ABG pCO2 ABG pO2 ABG HCO3 ABG O2 Saturation ABG Base Excess VBG pH VBG pCO2 VBG HCO3 VBG Base Excess FiO2 Sodium 131.0 L Potassium 3.6 Chloride 85 L Carbon Dioxide 16 L Anion Gap 30 H BUN 61 H Creatinine 1.76 H Est GFR ( Amer) 36 L Est GFR (Non-Af Amer) 30 L Glucose 668 H* Serum Osmolality 337 H Calcium 9.6 Magnesium Total Bilirubin 0.8 AST 26 ALT 20 Alkaline Phosphatase 215 H Total Protein 6.9 Albumin 3.4 L Triglycerides Cholesterol LDL Cholesterol Direct VLDL Cholesterol HDL Cholesterol TSH Urine Color Urine Appearance Urine pH Ur Specific [place] Urine Protein Urine Glucose (UA) Urine Ketones Urine Blood Urine Nitrite Ur Leukocyte Esterase Urine WBC (Auto) Urine RBC (Auto) 08/27/18 08/27/18 08/27/18 16:10 16:53 20:51 WBC RBC Hgb Hct MCV MCH MCHC RDW Plt Count Seg Neutrophils % Lymphocytes % Monocytes % Eosinophils % Basophils % Absolute Neutrophils Absolute Lymphocytes Absolute Monocytes Absolute Eosinophils Absolute Basophils Carbonic Acid HCO3/H2CO3 Ratio ABG pH ABG pCO2 ABG pO2 ABG HCO3 ABG O2 Saturation ABG Base Excess VBG pH 7.22 L VBG pCO2 37.3 VBG HCO3 14.8 L VBG Base Excess -12.1 FiO2 Sodium 137.3 Potassium 3.1 L Chloride 101 Carbon Dioxide 12 L Anion Gap 24 H BUN 54 H Creatinine 1.30 H Est GFR ( Amer) 51 L Est GFR (Non-Af Amer) 43 L Glucose 526 H* Serum Osmolality Calcium 8.5 Magnesium Total Bilirubin 0.6 AST 16 ALT 26 Alkaline Phosphatase 198 H Total Protein 5.0 L Albumin 2.4 L Triglycerides Cholesterol LDL Cholesterol Direct VLDL Cholesterol HDL Cholesterol TSH Urine Color YELLOW Urine Appearance CLOUDY Urine pH 5.0 Ur Specific [place] 1.014 Urine Protein 30 H Urine Glucose (UA) >=500 H Urine Ketones 20 H Urine Blood LARGE H Urine Nitrite NEGATIVE Ur Leukocyte Esterase MODERATE H Urine WBC (Auto) 77 Urine RBC (Auto) 2 08/28/18 08/28/18 08/28/18 06:06 06:06 06:06 WBC 30.3 H* RBC 5.25 Hgb 14.9 Hct 42.6 MCV 81 D MCH 28.3 MCHC 34.9 RDW 14.9 H Plt Count 140 L Seg Neutrophils % Not Reportable Lymphocytes % Not Reportable Monocytes % Not Reportable Eosinophils % Not Reportable Basophils % Not Reportable Absolute Neutrophils Not Reportable Absolute Lymphocytes Not Reportable Absolute Monocytes Not Reportable Absolute Eosinophils Not Reportable Absolute Basophils Not Reportable Carbonic Acid HCO3/H2CO3 Ratio ABG pH ABG pCO2 ABG pO2 ABG HCO3 ABG O2 Saturation ABG Base Excess VBG pH VBG pCO2 VBG HCO3 VBG Base Excess FiO2 Sodium Cancelled Potassium Cancelled Chloride Cancelled Carbon Dioxide Cancelled Anion Gap Cancelled BUN Cancelled Creatinine Cancelled Est GFR ( Amer) Cancelled Est GFR (Non-Af Amer) Cancelled Glucose Cancelled Serum Osmolality Calcium Cancelled Magnesium Cancelled Total Bilirubin Cancelled AST Cancelled ALT Cancelled Alkaline Phosphatase Cancelled Total Protein Cancelled Albumin Cancelled Triglycerides Cancelled Cholesterol Cancelled LDL Cholesterol Direct Cancelled VLDL Cholesterol Cancelled HDL Cholesterol Cancelled TSH 0.46 L Urine Color Urine Appearance Urine pH Ur Specific [place] Urine Protein Urine Glucose (UA) Urine Ketones Urine Blood Urine Nitrite Ur Leukocyte Esterase Urine WBC (Auto) Urine RBC (Auto) 08/28/18 08/28/18 08:25 09:25 WBC RBC Hgb Hct MCV MCH MCHC RDW Plt Count Seg Neutrophils % Lymphocytes % Monocytes % Eosinophils % Basophils % Absolute Neutrophils Absolute Lymphocytes Absolute Monocytes Absolute Eosinophils Absolute Basophils Carbonic Acid 1.04 L HCO3/H2CO3 Ratio 23:1 ABG pH 7.48 H ABG pCO2 34.4 L ABG pO2 72.0 L ABG HCO3 24.9 H ABG O2 Saturation 95.5 ABG Base Excess 1.9 VBG pH VBG pCO2 VBG HCO3 VBG Base Excess FiO2 ROOM AIR Sodium 147.3 H Potassium 2.4 L* Chloride 111 H Carbon Dioxide 27 D Anion Gap 9 BUN 49 H Creatinine 0.97 Est GFR ( Amer) > 60 Est GFR (Non-Af Amer) > 60 Glucose 90 Serum Osmolality Calcium 9.5 Magnesium 2.4 H Total Bilirubin 0.5 AST 18 ALT 24 Alkaline Phosphatase 177 H Total Protein 5.3 L Albumin 2.5 L Triglycerides 234 H Cholesterol 134.39 LDL Cholesterol Direct 73 VLDL Cholesterol 46.8 H HDL Cholesterol 17 L TSH Urine Color Urine Appearance Urine pH Ur Specific [place] Urine Protein Urine Glucose (UA) Urine Ketones Urine Blood Urine Nitrite Ur Leukocyte Esterase Urine WBC (Auto) Urine RBC (Auto) 08/27/18 08/27/18 08/27/18 16:10 16:10 20:51 Creatine Kinase 57 40 CK-MB (CK-2) 0.75 NT-Pro-B Natriuret Pep 08/27/18 08/28/18 08/28/18 20:51 06:06 06:06 Creatine Kinase Cancelled CK-MB (CK-2) 1.02 0.75 NT-Pro-B Natriuret Pep 2400 H 08/28/18 09:25 Creatine Kinase 24 L CK-MB (CK-2) NT-Pro-B Natriuret Pep Impressions: Chest X-Ray 08/27/18 00:00 IMPRESSION: NO ACUTE RADIOGRAPHIC FINDING IN THE CHEST. Assessment and Plan - Diagnosis (1) Diabetic ketoacidosis Qualifiers: Diabetes mellitus type: type 2 Is this a current diagnosis for this admission?: Yes Plan: 08/27/2018-patient is going to be admitted under IMCU and patient was to start on insulin drip per protocol as She is also going to receive IV fluids normal saline at 150 cc/h. Plan is to recheck the labs this evening. Patient is going to be n.p.o. Lab work as per DKA protocol. GI prophylaxis was ordered. Soft restraints are ordered because patient was agitated. Smith's catheter was placed and she was also started on IV antibiotic therapy because WBC count is 26,000. Hemoglobin A1c was requested for tomorrow. And to arrange for a tary consult. 08/28/2018-patient was admitted to ICU for DKA. EKG done this morning on room air pH is 7.48 PCO2 34 PO2 72 bicarb is 24.9. Ketoacidosis is resolved. Blood sugars are 42 insulin drip was discontinued started on Lantus 30 units twice a day started on diabetic diet to check the blood sugars before meals and at bedtime. Hemoglobin A1c is 14.5. Dietary consult was requested. Plan to check the labs again tomorrow. (2) Atrial fibrillation Qualifiers: Atrial fibrillation type: chronic Qualified Code(s): I48.2 - Chronic atrial fibrillation Is this a current diagnosis for this admission?: No Plan: 08/27/2018-pt has chronic atrial fib , heart rate is 157 to start on cardiazem drip and to give bolus 20 mg iv . placed on cardiac monitoring and to check ca rdiac enzymes times 3. atrial fib rvr most like;ly sec to dka and severe dehydration. 08/28/2018-patient has chronic atrial fibrillation with heart rate of 157 she was started on Cardizem drip and admission. She converted to sinus rhythm plan is to discontinue Cardizem drip and to start on p.o. Cardizem 60 mg p.o. every 8 hours. To start her on Eliquis 5 mg p.o. twice daily during this hospital stay. (3) Polysubstance abuse Is this a current diagnosis for this admission?: No Plan: 08/27/2018 patient found to have drug screen positive for marijuana and cocaine. Plan to put on IV Ativan 1 mg every 4 as needed for agitation and prevent withdrawal symptoms, she was placed on soft restraints. Psych consult is going to be requested. 08/28/2018-on admission urine drug screen is positive for marijuana and cocaine psych consult was requested. She was placed on IV Ativan 1 mg every 4 as needed for agitation and to prevent withdrawal symptoms. (4) HTN (hypertension) Is this a current diagnosis for this admission?: No Plan: 08/27/2018-patient has history of hypertension blood pressure is 135/83. I am going to put her on IV hydralazine 10 mg every 6 hours as needed for BP more than 150. 09/28/2018-patient's latest blood pressure is 151/82. She was started on hydralazine IV every 6 as needed for blood pressure more than 150. Started on lisinopril 10 mg p.o. daily from today. (5) Acute kidney failure Is this a current diagnosis for this admission?: Yes Plan: 08/28/2018-his baseline creatinine is around 0.7 and on admission it was 1.7 with IV fluids creatinine was improved to 0.97. EGFR is more than 60. Acute kidney injury most likely secondary to prerenal causes resolved. (6) Sepsis Is this a current diagnosis for this admission?: Yes Plan: 08/28/2018-patient came in with hypotension A. fib with RVR acute kidney injury and elevated WBC count of 26,000 and WBC count went up to 30,000 today patient was started on IV Rocephin, IV levofloxacin. The blood cultures came back positive for gram-negative rods. most Likely patient has sepsis.
[2018-08-28] MEDS ORDERED: LISINOPRIL 10 MG TABLET PO ONE (12:00)
[2018-08-28] MEDS: DILTIAZEM HCL 60 MG TABLET PO SCH ×2 (13:17→21:31)
[2018-08-28] MEDS: INSULIN REG, HUMAN 100 UNIT/ML 3 ML VIAL (PYX) SUBCUT SCH ×3 (13:18→21:53)
[2018-08-28] MEDS: POTASSIUM CHLORIDE 20 MEQ/50 ML RTU IV SCH ×2 (15:35→17:52)
--- NOTE | 2018-08-28 16:24 | PSYCHOLOGICAL NOTE ---
Psych Note - Psych Note Date seen by psych provider: 08/28/18 Time seen by psych provider: 14:55 - Attempted evaluation from [id number]. Psych Note: Reason for Consult: Polysubstance Contact Permissions: Unknown. Mother Melvi Pritchett [phone] listed as EC. Patient is a 53 year old female who presented to the ED 08/27/18 via EMS for sugar problems, nausea and vomiting x3-4 days, decreased PO intake, confusion, combative, and complained of pain everywhere. Her BP was low and her glucose was extremely elevated. She was subsequently admitted same day for DKA, AFib, Polysubstance and HTN. Progress note from medical provider today also added WILLIE and sepsis. A psychiatric consult was ordered due to current UDS being positive for Cocaine. UDS from exactly a month ago (07/30/18) was positive for Cocaine and Cannabis. Haldol 4MG IV Q6H PRN agitation was started today but not yet administered. Ativan 1MG IV Q4H PRN anxiety/agitation was started yesterday and she was administered a dose today at 1329. Observed patient sleeping. She would not wake up to name said loudly or gentle shake of the leg. She opened her eyes at times, looked about and then would go back to sleep. Eyelids were heavy. Her lunch tray looked like it was barely touched. Diagnosis: Lethargy 304.20 (F14.20) Cocaine Use Disorder, Moderate to Severe 292.9 (F12.99) Unspecified Cannabis Related Disorder Medication recommendations made by the psychiatric medical provider, Dr. Will MD., includes: Do not want to do any medications until she is more oriented to engage in evaluation Prefer use of Haldol versus Ativan for anxiety/calming effect/agitation Impression/Plan: Unable to evaluate patient due to lethargy. Will check back tomorrow. Consulted with Dr. Moon regarding the management and care of patient. Attending Hospitalist made aware of recommendations and in agreement.
[2018-08-28] MEDS: APIXABAN 5 MG TABLET PO SCH (17:52)
[2018-08-28] MEDS: CEFTRIAXONE 2 GM/D5W RTU 2 GM/50 ML RTUPB IV SCH (20:12)
[2018-08-28] MEDS: LEVOFLOXACIN 750 MG/D5W RTU 750 MG/150 ML RTUPB IV SCH (21:31)
[2018-08-28] MEDS ORDERED: INSULIN GLARGINE,HUM.REC.ANLOG 1,000 UNIT/10 ML VIAL (PYX) SUBCUT PRN (21:47)
[2018-08-28] MEDS: INSULIN GLARGINE,HUM.REC.ANLOG 1,000 UNIT/10 ML VIAL SUBCUT SCH (21:54)
[2018-08-28] MEDS: HALOPERIDOL LACTATE INJ 5 MG/1 ML VIAL IV PRN (22:32)
--- NOTE | 2018-08-29 00:17 | EKG REPORT ---
SEVERITY:- ABNORMAL ECG - SINUS RHYTHM NONSPECIFIC T ABNORMALITIES, LATERAL LEADS BORDERLINE PROLONGED QT INTERVAL : Confirmed by: Karlie Burris 29-Aug-2018 00:16:59
[2018-08-29] MEDS: HALOPERIDOL LACTATE INJ 5 MG/1 ML VIAL IV PRN (04:14)
[2018-08-29] MEDS: DILTIAZEM HCL 60 MG TABLET PO SCH ×3 (05:23→21:43)
[2018-08-29 06:12] LABS: HEMATOCRIT 40.6 % (36.0-47.0); HEMOGLOBIN 14.1 g/dL (12.0-15.5); MEAN CORPUSCULAR HEMOGLOBIN 27.8 pg (27.0-33.4); MEAN CORPUSCULAR HGB CONC 34.6 g/dL (32.0-36.0); MEAN CORPUSCULAR VOLUME 80 fl (80-97); RED BLOOD COUNT 5.07 10^6/uL (3.72-5.28); RED CELL DISTRIBUTION WIDTH 15.4 % (11.5-14.0); WHITE BLOOD COUNT 27.7 10^3/uL (4.0-10.5)
[2018-08-29 07:06] LABS: ALANINE AMINOTRANSFERASE 18 U/L (9-52); ALBUMIN 2.6 g/dL (3.5-5.0); ALKALINE PHOSPHATASE 166 U/L (38-126); ANION GAP 9 (5-19); ASPARTATE AMINO TRANSFERASE 37 U/L (14-36); BILIRUBIN,DIRECT 0.5 mg/dL (0.0-0.4); BILIRUBIN,TOTAL 0.7 mg/dL (0.2-1.3); BLOOD UREA NITROGEN 36 mg/dL (7-20); CALCIUM 9.5 mg/dL (8.4-10.2); CARBON DIOXIDE 26 mmol/L (22-30); CHLORIDE 112 mmol/L (98-107); GLUCOSE 146 mg/dL (75-110); POTASSIUM 3.1 mmol/L (3.6-5.0); SODIUM 146.7 mmol/L (137-145); TOTAL PROTEIN 5.9 g/dL (6.3-8.2)
[2018-08-29 07:18] LABS: PLATELET COUNT 89 10^3/uL (150-450)
[2018-08-29 07:39] LABS: ABSOLUTE LYMPHOCYTES# (MANUAL) 1.4 10^3/uL (0.5-4.7); ABSOLUTE MONOCYTES # (MANUAL) 3.3 10^3/uL (0.1-1.4); BASOPHILS % (MANUAL) 0 % (0-2); EOSINOPHILS % (MANUAL) 0 % (0-6); LYMPHOCYTES % (MANUAL) 5 % (13-45); MONOCYTES % (MANUAL) 12 % (3-13); SEGMENTED NEUTROPHILS % (MAN) 83 % (42-78); TOTAL CELLS COUNTED 100
[2018-08-29 07:40] LABS: ANISOCYTOSIS SLIGHT; PLATELET COMMENT DECREASED; TARGET CELLS 1+; TOXIC GRANULATION SLIGHT; TOXIC VACUOLATION PRESENT
[2018-08-29] MEDS ORDERED: INSULIN GLARGINE,HUM.REC.ANLOG 1,000 UNIT/10 ML VIAL (PYX) SUBCUT ONE (09:22)
[2018-08-29] MEDS: APIXABAN 5 MG TABLET PO SCH ×2 (09:29→17:07)
[2018-08-29] MEDS: LISINOPRIL 10 MG TABLET PO SCH (09:29)
[2018-08-29] MEDS: INSULIN REG, HUMAN 100 UNIT/ML 3 ML VIAL (PYX) SUBCUT SCH ×4 (09:29→21:42)
[2018-08-29] MEDS: ENOXAPARIN SODIUM INJ 40 MG/0.4 ML DISP.SYRIN SUBCUT SCH (09:30)
[2018-08-29] MEDS: FAMOTIDINE INJ/PF 20 MG/2 ML SDV IV SCH ×2 (09:30→21:43)
[2018-08-29] MEDS: NICOTINE 21 MG/24 HR PATCH.TD24 TD SCH (09:30)
[2018-08-29] MEDS: INSULIN GLARGINE,HUM.REC.ANLOG 1,000 UNIT/10 ML VIAL SUBCUT SCH ×2 (09:31→21:42)
[2018-08-29 11:49] LABS: PATH REVIEW PATHOLOGIST REVIEWED
[2018-08-29] MEDS ORDERED: ONDANSETRON HCL INJ/PF 4 MG/2 ML SDV IV PRN (13:00)
--- NOTE | 2018-08-29 13:15 | PDOC PROGRESS REPORT ---
Subjective Progress Note for:: 08/29/18 Subjective:: 53 year old female with history of diabetes mellitus brought in by EMS with complaints of nausea vomiting for 3-4 days. Unable to get any information from the patient. EMS documented the blood sugar of 750. In the emergency room the fingerstick for glucose was high. No insulin was given until the serum glucose came back at 658. On discussion with the ER physician why no subq insulin was she became defensive and agitated and told me she has to wait for the serum glucose report by the lab test before giving the subcu insulin. I did report the incident to Dr. grewal hospitalist director. pt is in atrial fib with heart rate of 157 the issue is not addressed in the ER. Examination patient is unable to provide any history. Patient is combative. In the emergency room patient received 2 L of normal saline. Found to be urine drug screen is positive for marijuana and cocaine. Patient is going to be placed in IMCU. 08/28/2018-no acute events in the last 24 hours. Patient converted to sinus rhythm this morning. He is going to turn off the Cardizem drip start on p.o. Cardizem 60 mg every 8 hours. Blood sugars came down to close to 150s insulin drip was discontinued plan is to start her on diabetic diet with Lantus 30 units twice a day insulin sliding scale before meals and at bedtime and discontinue D5W. History of polysubstance abuse we going to request for psych consult. 08/29/2018-no acute events in the last 24 hours. Patient is afebrile. Feels sleepy and groggy. Still on restraints. Family members at bedside no concerns from them. Psych consult was done they unable to give recommendations at this time probably they will come back tomorrow for reevaluation. Reason For Visit: DIABETIC KETOACIDOSIS Physical Exam Vital Signs: Temp Pulse Resp BP Pulse Ox 98.3 F 88 16 145/84 H 98 08/29/18 12:00 08/29/18 11:39 08/29/18 07:31 08/29/18 11:39 08/29/18 11:39 Intake & Output 08/28/18 08/29/18 08/30/18 06:59 06:59 06:59 Intake Total 3310 2255 Output Total 6220 1840 Balance 1964 - Weight 67.2 kg 67 kg General appearance: PRESENT: no acute distress Head exam: PRESENT: atraumatic Eye exam: PRESENT: PERRLA Mouth exam: PRESENT: moist, tongue midline Neck exam: ABSENT: carotid bruit, JVD, lymphadenopathy, thyromegaly Respiratory exam: PRESENT: decreased breath sounds Cardiovascular exam: PRESENT: tachycardia GI/Abdominal exam: PRESENT: normal bowel sounds, soft. ABSENT: distended, gua rding, mass, organolmegaly, rebound, tenderness Rectal exam: PRESENT: deferred Extremities exam: PRESENT: full ROM. ABSENT: calf tenderness, clubbing, pedal edema Neurological exam: PRESENT: alert, awake, oriented to person, oriented to place, oriented to time, oriented to situation, CN II-XII grossly intact. ABSENT: sravan r sensory deficit Psychiatric exam: PRESENT: appropriate affect, normal mood. ABSENT: homicidal ideation, suicidal ideation Results Laboratory Results: 08/29/18 05:53 08/29/18 05:53 08/29/18 08/29/18 05:53 05:53 WBC 27.7 H RBC 5.07 Hgb 14.1 Hct 40.6 MCV 80 MCH 27.8 MCHC 34.6 RDW 15.4 H Plt Count 89 L Seg Neutrophils % Not Reportable Lymphocytes % Not Reportable Monocytes % Not Reportable Eosinophils % Not Reportable Basophils % Not Reportable Absolute Neutrophils Not Reportable Absolute Lymphocytes Not Reportable Absolute Monocytes Not Reportable Absolute Eosinophils Not Reportable Absolute Basophils Not Reportable Sodium 146.7 H Potassium 3.1 L Chloride 112 H Carbon Dioxide 26 Anion Gap 9 BUN 36 H Creatinine 0.87 Est GFR ( Amer) > 60 Est GFR (Non-Af Amer) > 60 Glucose 146 H Calcium 9.5 Magnesium 2.3 Total Bilirubin 0.7 AST 37 H ALT 18 Alkaline Phosphatase 166 H Total Protein 5.9 L Albumin 2.6 L 08/27/18 08/27/18 08/27/18 16:10 16:10 20:51 Creatine Kinase 57 40 CK-MB (CK-2) 0.75 NT-Pro-B Natriuret Pep 08/27/18 08/28/18 08/28/18 20:51 06:06 06:06 Creatine Kinase Cancelled CK-MB (CK-2) 1.02 0.75 NT-Pro-B Natriuret Pep 2400 H 08/28/18 09:25 Creatine Kinase 24 L CK-MB (CK-2) NT-Pro-B Natriuret Pep Impressions: Chest X-Ray 08/27/18 00:00 IMPRESSION: NO ACUTE RADIOGRAPHIC FINDING IN THE CHEST. Assessment and Plan - Diagnosis (1) Diabetic ketoacidosis Qualifiers: Diabetes mellitus type: type 2 Is this a current diagnosis for this admission?: Yes Plan: 08/27/2018-patient is going to be admitted under IMCU and patient was to start on insulin drip per protocol as She is also going to receive IV fluids normal saline at 150 cc/h. Plan is to recheck the labs this evening. Patient is going to be n.p.o. Lab work as per DKA protocol. GI prophylaxis was ordered. Soft restraints are ordered because patient was agitated. Smith's catheter was placed and she was also started on IV antibiotic therapy because WBC count is 26,000. Hemoglobin A1c was requested for tomorrow. And to arrange for a dietary consult. 08/28/2018-patient was admitted to mICU for DKA. EKG done this morning on room air pH is 7.48 PCO2 34 PO2 72 bicarb is 24.9. Ketoacidosis is resolved. Blood sugars are 42 insulin drip was discontinued started on Lantus 30 units twice a day started on diabetic diet to check the blood sugars before meals and at bedtime. Hemoglobin A1c is 14.5. Dietary consult was requested. Plan to check the labs again tomorrow. 08/29/2018-patient was admitted to MICU for a diabetic ketoacidosis which was resolved. Today's blood sugars are 142. She is a diabetic diet, on insulin sliding scale before meals and at bedtime, Lantus 25 units twice a day. Plan is to resume her glipizide she is taking at home on decrease the Lantus to 20 units twice a day. Hemoglobin A1c is 14.5. Unable to provide any Dietery recommendations. Dietary consult was requested today. (2) Atrial fibrillation Qualifiers: Atrial fibrillation type: chronic Qualified Code(s): I48.2 - Chronic atrial fibrillation Is this a current diagnosis for this admission?: No Plan: 08/27/2018-pt has chronic atrial fib , heart rate is 157 to start on cardiazem drip and to give bolus 20 mg iv . placed on cardiac monitoring and to check cardiac enzymes times 3. atrial fib rvr most like;ly sec to dka and severe dehydration. 08/28/2018-patient has chronic atrial fibrillation with heart rate of 157 she was started on Cardizem drip and admission. She converted to sinus rhythm plan is to discontinue Cardizem drip and to start on p.o. Cardizem 60 mg p.o. every 8 hours. To start her on Eliquis 5 mg p.o. twice daily during this hospital stay. 08/29/2018-patient has history of atrial fibrillation came in with rapid ventricular rate initially she was started on Cardizem drip now she is on Cardizem 60 mg p.o. every 8 hours started on Eliquis 5 mg p.o. twice a day during this hospital stay. Heart rate now is in the 80s. (3) Polysubstance abuse Is this a current diagnosis for this admission?: No Plan: 08/27/2018 patient found to have drug screen positive for marijuana and cocaine. Plan to put on IV Ativan 1 mg every 4 as needed for agitation and prevent withdrawal symptoms, she was placed on soft restraints. Psych consult is going to be requested. 08/28/2018-on admission urine drug screen is positive for marijuana and cocaine psych consult was requested. She was placed on IV Ativan 1 mg every 4 as needed for agitation and to prevent withdrawal symptoms. 08/29/2018-psych consult was requested. The recommendation is discontinue Ativan and continue Haldol as needed at this time. (4) HTN (hypertension) Is this a current diagnosis for this admission?: No Plan: 08/27/2018-patient has history of hypertension blood pressure is 135/83. I am going to put her on IV hydralazine 10 mg every 6 hours as needed for BP more than 150. 08/28/2018-patient's latest blood pressure is 151/82. She was started on hydralazine IV every 6 as needed for blood pressure more than 150. Started on lisinopril 10 mg p.o. daily from today. 08/29/2018-latest blood pressure today is 135/71 well-controlled presently on lisinopril 10 mg p.o. daily, Cardizem 60 mg p.o. every 8 hours. Plan is to continue the present management. (5) Acute kidney failure Is this a current diagnosis for this admission?: Yes Plan: 08/28/2018-his baseline creatinine is around 0.7 and on admission it was 1.7 with IV fluids creatinine was improved to 0.97. EGFR is more than 60. Acute kidney injury most likely secondary to prerenal causes resolved. 08/29/2018-patient's baseline creatinine is around 0.7 on admission it was 1.7 it was improved to 0.8 today acute kidney injury is most likely secondary to prerenal causes. (6) Sepsis Is this a current diagnosis for this admission?: Yes Plan: 08/28/2018-patient came in with hypotension A. fib with RVR acute kidney injury and elevated WBC count of 26,000 and WBC count went up to 30,000 today patient was started on IV Rocephin, IV levofloxacin. The blood cultures came back positive for gram-negative rods. most Likely patient has sepsis. 08/29/2018 patient came in with low blood pressure secondary to sepsis at the time of admission blood cultures are positive for gram-positive negative for hours WBC count is still 27,000. Patient is presently on IV Rocephin and IV levofloxacin. Waiting for the sensitivity reports. In the meantime we will continue the present management. - Time Time Spent with patient: 25-34 minutes Smoking Cessation Education: over 10 minutes Medications reviewed and adjusted accordingly: Yes Anticipated discharge: Home
--- NOTE | 2018-08-29 16:26 | PSYCHOLOGICAL NOTE ---
Psych Note - Psych Note Date seen by psych provider: 08/29/18 Time seen by psych provider: 13:40 - Attempted evaluation at 1338. Psych Note: Reason for Consult: Polysubstance Contact Permissions: Unknown. Mother Melvi Pritchett [phone] listed as EC. Patient is a 53 year old female who presented to the ED 08/27/18 via EMS for sugar problems, nausea and vomiting x3-4 days, decreased PO intake, confusion, combative, and complained of pain everywhere. Patient was asleep. She would wake up or at least open her eyes when her name was called but then fall back asleep quickly. She did not respond to gently grabbing/touching leg. today her lunch tray had more food eaten. Diagnosis: Lethargy 304.20 (F14.20) Cocaine Use Disorder, Moderate to Severe 292.9 (F12.99) Unspecified Cannabis Related Disorder Medication recommendations made by the psychiatric medical provider, Dr. Will MD., includes: Do not want to do any medications until she is more oriented to engage in evaluation Prefer use of Haldol versus Ativan for anxiety/calming effect/agitation Impression/Plan: Unable to evaluate patient due to lethargy. Will check back tomorrow. Consulted with Dr. Moon regarding the management and care of p atient. Attending Surgical Instruments Inspector aware of attempt to evaluate patient without success.
[2018-08-29] MEDS: CEFTRIAXONE 2 GM/D5W RTU 2 GM/50 ML RTUPB IV SCH (20:29)
[2018-08-29] MEDS ORDERED: LEVOFLOXACIN 750 MG/D5W RTU 750 MG/150 ML RTUPB IV SCH (22:00)
[2018-08-30] MEDS: DILTIAZEM HCL 60 MG TABLET PO SCH ×3 (05:14→21:36)
[2018-08-30] MEDS: ACETAMINOPHEN 325 MG TABLET PO PRN (05:18)
[2018-08-30 06:30] LABS: HEMATOCRIT 35.4 % (36.0-47.0); HEMOGLOBIN 12.4 g/dL (12.0-15.5); MEAN CORPUSCULAR HEMOGLOBIN 27.7 pg (27.0-33.4); MEAN CORPUSCULAR HGB CONC 34.9 g/dL (32.0-36.0); MEAN CORPUSCULAR VOLUME 79 fl (80-97); RED BLOOD COUNT 4.46 10^6/uL (3.72-5.28); WHITE BLOOD COUNT 19.1 10^3/uL (4.0-10.5)
[2018-08-30 06:55] LABS: ALANINE AMINOTRANSFERASE 25 U/L (9-52); ALKALINE PHOSPHATASE 144 U/L (38-126); ANION GAP 8 (5-19); ASPARTATE AMINO TRANSFERASE 26 U/L (14-36); BILIRUBIN,DIRECT 0.4 mg/dL (0.0-0.4); BILIRUBIN,TOTAL 0.7 mg/dL (0.2-1.3); BLOOD UREA NITROGEN 24 mg/dL (7-20); CALCIUM 8.2 mg/dL (8.4-10.2); CARBON DIOXIDE 26 mmol/L (22-30); CHLORIDE 100 mmol/L (98-107); GLUCOSE 177 mg/dL (75-110); TOTAL PROTEIN 4.5 g/dL (6.3-8.2)
[2018-08-30 07:09] LABS: POTASSIUM 2.7 mmol/L (3.6-5.0)
[2018-08-30 07:44] LABS: ABSOLUTE LYMPHOCYTES# (MANUAL) 1.9 10^3/uL (0.5-4.7); ABSOLUTE MONOCYTES # (MANUAL) 0.2 10^3/uL (0.1-1.4); BAND NEUTROPHILS % (MANUAL) 1 % (3-5); BASOPHILS % (MANUAL) 0 % (0-2); EOSINOPHILS % (MANUAL) 0 % (0-6); LYMPHOCYTES % (MANUAL) 10 % (13-45); MONOCYTES % (MANUAL) 1 % (3-13); SEGMENTED NEUTROPHILS % (MAN) 88 % (42-78); TOTAL CELLS COUNTED 100
[2018-08-30 07:51] LABS: ANISOCYTOSIS 1+; HYPOCHROMASIA SLIGHT; OVALOCYTES SLIGHT; PLATELET COMMENT DECREASED; POIKILOCYTOSIS SLIGHT; SCHISTOCYTES SLIGHT; TEAR DROP CELLS SLIGHT; TOXIC GRANULATION 1+
[2018-08-30 07:52] LABS: PLATELET COUNT 65 10^3/uL (150-450)
[2018-08-30] MEDS: GLIPIZIDE 5 MG TABLET PO SCH (08:12)
[2018-08-30] MEDS: POTASSIUM CHLORIDE 20 MEQ/50 ML RTU IV SCH ×3 (08:13→12:54)
[2018-08-30] MEDS: INSULIN REG, HUMAN 100 UNIT/ML 3 ML VIAL (PYX) SUBCUT SCH ×4 (08:29→21:36)
[2018-08-30] MEDS ORDERED: POTASSIUM CHLORIDE 20 MEQ/50 ML RTU IV SCH (08:30)
[2018-08-30] MEDS ORDERED: POTASSIUM CHLORIDE 10 MEQ CAPSULE.ER PO ONE (09:00)
[2018-08-30] MEDS: LISINOPRIL 10 MG TABLET PO SCH (10:09)
[2018-08-30] MEDS: APIXABAN 5 MG TABLET PO SCH ×2 (10:09→18:08)
[2018-08-30] MEDS: INSULIN GLARGINE,HUM.REC.ANLOG 1,000 UNIT/10 ML VIAL SUBCUT SCH ×2 (10:11→21:37)
[2018-08-30] MEDS: POTASSIUM CHLORIDE 10 MEQ CAPSULE.ER PO SCH (10:11)
[2018-08-30] MEDS: NICOTINE 21 MG/24 HR PATCH.TD24 TD SCH (10:11)
[2018-08-30] MEDS: FAMOTIDINE INJ/PF 20 MG/2 ML SDV IV SCH ×2 (10:12→21:35)
[2018-08-30] MEDS ORDERED: PROMETHAZINE HCL INJ 25 MG/1 ML VIAL IV PRN (10:30)
--- NOTE | 2018-08-30 17:33 | PSYCHOLOGICAL NOTE ---
Psych Note - Psych Note Date seen by psych provider: 08/30/18 Time seen by psych provider: 16:25 - Evaluation from [id number]. Psych Note: Reason for Consult: Polysubstance Contact Permissions: Unknown. Mother Melvi Pritchett [phone] listed as EC. Patient is a 53 year old female who presented to the ED 08/27/18 via EMS for sugar problems, nausea and vomiting x3-4 days, decreased PO intake, confusion, combative, and complained of pain everywhere. Spoke to attending nurse who stated patient had sat up to eat lunch today and she was able to engage in discussion. Today she still resented groggy but was alert and oriented. She was able to answer questions appropriately. She stated "I was better yesterday but even better today." She stated she wanted help for anything she could get help for. She acknowledged she has been smoking Crack Cocaine since age 15, had been mostly daily for the past 16 years and marijuana (from visit a month ago UDS had been positive). She denied previous detox. She then stated "I want ti turn you away if I can, my body is in pain, both my sides/ribs, back side all up and down." She identified this was "part of her illness the back/rib pain on both sides, cold, fevere, shakes, sweating." She reported she informed medical staff, they gave Tylenol, she asked for something more, they asked her what she would take at home and she told them Aleve and then has not gotten anything. She was made aware when she was ready to be discharged she could be linked to SA treatment. Diagnosis: 304.20 (F14.20) Cocaine Use Disorder, Moderate to Severe 292.9 (F12.99) Unspecified Cannabis Related Disorder Medication recommendations made by the psychiatric medical provider, Dr. Will MD., includes: Add Haldol 5MG twice a day for withdrawal/agitation Add Buspar 10MG twice a day for anxiety/calming effect/withdrawal/depression/sleep Impression/Plan: Patient is cleared from acute psychiatric services. SI and HI were never presenting concerns. She stated she did want help with Crack Cocaine addiction. She was concerned about side/rib pain both sides more than anything. She and medical staff were made aware that behavioral health would link to SA treatment when she is ready for discharge. Consulted with Dr. Moon regarding the management and care of patient. Attending Hospitalist made aware of recommendations.
[2018-08-30 17:58] LABS: ANION GAP 9 (5-19); BLOOD UREA NITROGEN 25 mg/dL (7-20); CARBON DIOXIDE 21 mmol/L (22-30); CHLORIDE 104 mmol/L (98-107); GLUCOSE 385 mg/dL (75-110); SODIUM 133.5 mmol/L (137-145)
[2018-08-30 18:10] LABS: POTASSIUM 5.3 mmol/L (3.6-5.0)
--- NOTE | 2018-08-30 19:19 | PDOC PROGRESS REPORT ---
Subjective Progress Note for:: 08/30/18 Subjective:: This is a 53 yr old female with a PMH of IDDM and polysubstance abuse who as admitted for DKA, sepsis and WILLIE. Her DKA has resolved. Per RN, her confusion and her mentation have improved. Called by lab, her blood cultures grew E. coli 2/2 bottles. Potassium this morning was low at 2.7. This morning, she says she feel a little better. She still feels weak and need assistance but this has improved from yesterday. Reason For Visit: DIABETIC KETOACIDOSIS Physical Exam Vital Signs: Temp Pulse Resp BP Pulse Ox 98.0 F 93 18 117/64 100 08/30/18 15:35 08/30/18 15:35 08/30/18 15:35 08/30/18 15:35 08/30/18 15:35 Intake & Output 08/29/18 08/30/18 08/31/18 06:59 06:59 06:59 Intake Total 3425 1120 149 Output Total 3950 2625 1100 Balance -525 -1505 -951 Weight 147 lb 11.355 oz 152 lb 8.958 oz General appearance: PRESENT: no acute distress, well-developed, well-nourished Head exam: PRESENT: atraumatic, normocephalic Eye exam: PRESENT: conjunctiva pink, EOMI, PERRLA. ABSENT: scleral icterus Ear exam: PRESENT: normal external ear exam Mouth exam: PRESENT: moist, tongue midline Neck exam: ABSENT: carotid bruit, JVD, lymphadenopathy, thyromegaly Respiratory exam: PRESENT: clear to auscultation heather. ABSENT: rales, rhonchi, wheezes Cardiovascular exam: PRESENT: RRR. ABSENT: diastolic murmur, rubs, systolic murmur Pulses: PRESENT: normal dorsalis pedis pul GI/Abdominal exam: PRESENT: normal bowel sounds, soft. ABSENT: distended, guarding, mass, organolmegaly, rebound, tenderness Rectal exam: PRESENT: deferred Neurological exam: PRESENT: alert, awake, oriented to person, oriented to place, CN II-XII grossly intact. ABSENT: motor sensory deficit Results Laboratory Results: 08/30/18 05:55 08/30/18 17:30 08/30/18 08/30/18 08/30/18 05:55 05:55 17:30 WBC 19.1 H RBC 4.46 Hgb 12.4 Hct 35.4 L MCV 79 L MCH 27.7 MCHC 34.9 RDW 15.0 H Plt Count 65 L Seg Neutrophils % Not Reportable Lymphocytes % Not Reportable Monocytes % Not Reportable Eosinophils % Not Reportable Basophils % Not Reportable Absolute Neutrophils Not Reportable Absolute Lymphocytes Not Reportable Absolute Monocytes Not Reportable Absolute Eosinophils Not Reportable Absolute Basophils Not Reportable Sodium 134.0 L 133.5 L Potassium 2.7 L* 5.3 H D Chloride 100 104 Carbon Dioxide 26 21 L Anion Gap 8 9 BUN 24 H 25 H Creatinine 0.79 1.03 Est GFR ( Amer) > 60 > 60 Est GFR (Non-Af Amer) > 60 56 L Glucose 177 H 385 H Calcium 8.2 L 8.0 L Magnesium 1.8 Total Bilirubin 0.7 AST 26 ALT 25 Alkaline Phosphatase 144 H Total Protein 4.5 L Albumin 2.0 L 08/27/18 19:26 Blood Blood Culture - Final Escherichia Coli 08/27/18 20:51 Blood Blood Culture - Final Escherichia Coli 08/27/18 08/27/18 08/27/18 16:10 16:10 20:51 Creatine Kinase 57 40 CK-MB (CK-2) 0.75 NT-Pro-B Natriuret Pep 08/27/18 08/28/18 08/28/18 20:51 06:06 06:06 Creatine Kinase Cancelled CK-MB (CK-2) 1.02 0.75 NT-Pro-B Natriuret Pep 2400 H 08/28/18 09:25 Creatine Kinase 24 L CK-MB (CK-2) NT-Pro-B Natriuret Pep Impressions: Chest X-Ray 08/27/18 00:00 IMPRESSION: NO ACUTE RADIOGRAPHIC FINDING IN THE CHEST. Assessment and Plan - Diagnosis (1) Diabetic ketoacidosis Qualifiers: Diabetes mellitus type: type 2 Is this a current diagnosis for this admission?: Yes Plan: Resolved. Hba1c is >14. Sugars in the 100s. Continue Lantus 20 u q12 and SSI. (2) Sepsis Is this a current diagnosis for this admission?: Yes Plan: Her blood cultures grew E. coli 2/2 bottles. Possibly from UTI. Urine culture pending. Continue Rocpehin. (3) Hypokalemia Is this a current diagnosis for this admission?: Yes Plan: Replace with 100 meqs Potassium. Repeat electrolytes. (4) Acute kidney failure Is this a current diagnosis for this admission?: Yes Plan: Resolved with IV fluids. (5) Atrial fibrillation Qualifiers: Atrial fibrillation type: chronic Qualified Code(s): I48.2 - Chronic atrial fibrillation Is this a current diagnosis for this admission?: No (6) Polysubstance abuse Is this a current diagnosis for this admission?: No - Time Time Spent with patient: 25-34 minutes
[2018-08-30] MEDS: CEFTRIAXONE 2 GM/D5W RTU 2 GM/50 ML RTUPB IV SCH (19:34)
[2018-08-30] MEDS: NAPROXEN 250 MG TABLET PO PRN (20:24)
[2018-08-30] MEDS: BUSPIRONE HCL 10 MG TABLET PO SCH (21:36)
[2018-08-30] MEDS: HALOPERIDOL 5 MG TABLET PO SCH (21:36)
[2018-08-31] MEDS: DILTIAZEM HCL 60 MG TABLET PO SCH ×3 (05:41→21:12)
[2018-08-31] MEDS: GLIPIZIDE 5 MG TABLET PO SCH (07:56)
[2018-08-31] MEDS: INSULIN REG, HUMAN 100 UNIT/ML 3 ML VIAL (PYX) SUBCUT SCH ×4 (07:56→21:11)
[2018-08-31] MEDS: BUSPIRONE HCL 10 MG TABLET PO SCH ×2 (09:23→21:11)
[2018-08-31] MEDS: HALOPERIDOL 5 MG TABLET PO SCH ×2 (09:23→21:11)
[2018-08-31] MEDS: FAMOTIDINE INJ/PF 20 MG/2 ML SDV IV SCH (09:24)
[2018-08-31] MEDS: NICOTINE 21 MG/24 HR PATCH.TD24 TD SCH (09:25)
[2018-08-31] MEDS: INSULIN GLARGINE,HUM.REC.ANLOG 1,000 UNIT/10 ML VIAL SUBCUT SCH (09:29)
[2018-08-31] MEDS: LISINOPRIL 10 MG TABLET PO SCH (10:03)
[2018-08-31] MEDS: ACETAMINOPHEN 325 MG TABLET PO PRN (11:41)
[2018-08-31 12:42] LABS: HEMATOCRIT 36.9 % (36.0-47.0); HEMOGLOBIN 12.6 g/dL (12.0-15.5); MEAN CORPUSCULAR HEMOGLOBIN 27.7 pg (27.0-33.4); MEAN CORPUSCULAR HGB CONC 34.3 g/dL (32.0-36.0); MEAN CORPUSCULAR VOLUME 81 fl (80-97); PLATELET COUNT 105 10^3/uL (150-450); RED BLOOD COUNT 4.55 10^6/uL (3.72-5.28); RED CELL DISTRIBUTION WIDTH 15.3 % (11.5-14.0); WHITE BLOOD COUNT 19.7 10^3/uL (4.0-10.5)
[2018-08-31 13:09] LABS: ANION GAP 7 (5-19); BLOOD UREA NITROGEN 25 mg/dL (7-20); CALCIUM 8.4 mg/dL (8.4-10.2); CARBON DIOXIDE 27 mmol/L (22-30); CHLORIDE 101 mmol/L (98-107); GLUCOSE 237 mg/dL (75-110); SODIUM 135.4 mmol/L (137-145)
[2018-08-31 13:24] LABS: POTASSIUM 3.3 mmol/L (3.6-5.0)
[2018-08-31] MEDS: APIXABAN 5 MG TABLET PO SCH ×2 (13:45→17:16)
[2018-08-31] MEDS: POTASSIUM CHLORIDE 10 MEQ CAPSULE.ER PO SCH (13:45)
--- NOTE | 2018-08-31 16:24 | PDOC PROGRESS REPORT ---
Subjective Progress Note for:: 08/31/18 Subjective:: This is a 53 yr old female with a PMH of IDDM and polysubstance abuse who as admitted for DKA, sepsis and WILLIE. Her DKA has resolved. Per RN, her confusion and her mentation have improved. Called by lab, her blood cultures grew E. coli 2/2 bottles. Potassium this morning was low at 2.7. This morning, she says she feel a little better. She still feels weak and need assistance but this has improved from yesterday. 08/31: No acute event overnight. She says she still feels generally weak but this continues to improve. She only takes glipizide at home and has been started on an insulin regimen as her Hba1c is >14. Reason For Visit: DIABETIC KETOACIDOSIS Physical Exam Vital Signs: Temp Pulse Resp BP Pulse Ox 98.6 F 98 18 109/61 100 08/31/18 11:25 08/31/18 14:00 08/31/18 11:25 08/31/18 11:25 08/31/18 11:25 Intake & Output 08/30/18 08/31/18 09/01/18 06:59 06:59 06:59 Intake Total 1120 199 Output Total 2625 1040 425 Balance -4370 -7181 -425 Weight 152 lb 8.958 oz 158 lb 15.253 oz General appearance: PRESENT: no acute distress, well-developed, well-nourished Head exam: PRESENT: atraumatic, normocephalic Eye exam: PRESENT: conjunctiva pink, EOMI, PERRLA. ABSENT: scleral icterus Ear exam: PRESENT: normal external ear exam Mouth exam: PRESENT: moist, tongue midline Neck exam: ABSENT: carotid bruit, JVD, lymphadenopathy, thyromegaly Respiratory exam: PRESENT: clear to auscultation heather. ABSENT: rales, rhonchi, wheezes Cardiovascular exam: PRESENT: RRR. ABSENT: diastolic murmur, rubs, systolic murmur Pulses: PRESENT: normal dorsalis pedis pul GI/Abdominal exam: PRESENT: normal bowel sounds, soft. ABSENT: distended, guarding, mass, organolmegaly, rebound, tenderness Rectal exam: PRESENT: deferred Neurological exam: PRESENT: alert, awake, oriented to person, oriented to place, oriented to time, oriented to situation, CN II-XII grossly intact. ABSENT: motor sensory deficit Results Laboratory Results: 08/31/18 12:27 08/31/18 12:27 08/30/18 08/31/18 08/31/18 17:30 12:27 12:27 WBC 19.7 H RBC 4.55 Hgb 12.6 Hct 36.9 MCV 81 MCH 27.7 MCHC 34.3 RDW 15.3 H Plt Count 105 L Sodium 133.5 L 135.4 L Potassium 5.3 H D 3.3 L D Chloride 104 101 Carbon Dioxide 21 L 27 Anion Gap 9 7 BUN 25 H 25 H Creatinine 1.03 0.81 Est GFR ( Amer) > 60 > 60 Est GFR (Non-Af Amer) 56 L > 60 Glucose 385 H 237 H Calcium 8.0 L 8.4 08/30/18 03:41 Smith Catheter Urine Culture - Final C.albicans/C.dubliniensis 08/27/18 08/27/18 08/27/18 16:10 16:10 20:51 Creatine Kinase 57 40 CK-MB (CK-2) 0.75 NT-Pro-B Natriuret Pep 08/27/18 08/28/18 08/28/18 20:51 06:06 06:06 Creatine Kinase Cancelled CK-MB (CK-2) 1.02 0.75 NT-Pro-B Natriuret Pep 2400 H 08/28/18 09:25 Creatine Kinase 24 L CK-MB (CK-2) NT-Pro-B Natriuret Pep Impressions: Chest X-Ray 08/27/18 00:00 IMPRESSION: NO ACUTE RADIOGRAPHIC FINDING IN THE CHEST. Assessment and Plan - Diagnosis (1) Diabetic ketoacidosis Qualifiers: Diabetes mellitus type: type 2 Is this a current diagnosis for this admission?: Yes Plan: Resolved. Hba1c is >14. Sugars in the 100s. Continue Lantus 20 u q12 and SSI. 08/31: Switch Lantus to 70/30 as she does not have insurance. (2) Sepsis Is this a current diagnosis for this admission?: Yes Plan: Her blood cultures grew E. coli 2/2 bottles. Possibly from UTI. Urine culture grew Chelsey likely colonization. Continue Rocephin. Repeat blood cultures pending. (3) Hypokalemia Is this a current diagnosis for this admission?: Yes Plan: Replace with 100 meqs Potassium. Repeat electrolytes. 08/31: Replace with 40 meqs PO. (4) Acute kidney failure Is this a current diagnosis for this admission?: Yes Plan: Resolved with IV fluids. (5) Atrial fibrillation Qualifiers: Atrial fibrillation type: chronic Qualified Code(s): I48.2 - Chronic atrial fibrillation Is this a current diagnosis for this admission?: No Plan: Continue Eliquis and PO cardizem. (6) Polysubstance abuse Is this a current diagnosis for this admission?: No Plan: Psych recommendations appreciated. Patient also counseled on substance abuse cessation. - Time Time Spent with patient: 25-34 minutes
[2018-08-31] MEDS: HUM INSULIN NPH/REG INSULIN HM 100 UNIT/1 ML 3 ML SUBCUT SCH (16:29)
[2018-08-31] MEDS ORDERED: POTASSIUM CHLORIDE 10 MEQ CAPSULE.ER PO ONE (16:30)
[2018-08-31] MEDS: CEFTRIAXONE 2 GM/D5W RTU 2 GM/50 ML RTUPB IV SCH (19:52)
[2018-08-31] MEDS: FAMOTIDINE 20 MG TABLET PO SCH (21:12)
[2018-09-01] MEDS: NAPROXEN 250 MG TABLET PO PRN (03:42)
[2018-09-01] MEDS: DILTIAZEM HCL 60 MG TABLET PO SCH ×2 (05:10→13:37)
[2018-09-01 06:26] LABS: ANION GAP 8 (5-19); BLOOD UREA NITROGEN 21 mg/dL (7-20); CALCIUM 8.3 mg/dL (8.4-10.2); CARBON DIOXIDE 22 mmol/L (22-30); CHLORIDE 104 mmol/L (98-107); GLUCOSE 154 mg/dL (75-110); SODIUM 134.1 mmol/L (137-145)
[2018-09-01 06:41] LABS: POTASSIUM 4.5 mmol/L (3.6-5.0)
[2018-09-01] MEDS: INSULIN REG, HUMAN 100 UNIT/ML 3 ML VIAL (PYX) SUBCUT SCH ×2 (08:00→11:31)
[2018-09-01] MEDS: HUM INSULIN NPH/REG INSULIN HM 100 UNIT/1 ML 3 ML SUBCUT SCH (08:30)
[2018-09-01] MEDS: POTASSIUM CHLORIDE 10 MEQ CAPSULE.ER PO SCH (09:59)
[2018-09-01] MEDS: BUSPIRONE HCL 10 MG TABLET PO SCH (09:59)
[2018-09-01] MEDS: HALOPERIDOL 5 MG TABLET PO SCH (09:59)
[2018-09-01] MEDS: LISINOPRIL 10 MG TABLET PO SCH (10:00)
[2018-09-01] MEDS: FAMOTIDINE 20 MG TABLET PO SCH (10:00)
[2018-09-01] MEDS: NICOTINE 21 MG/24 HR PATCH.TD24 TD SCH (10:01)
[2018-09-01] MEDS: APIXABAN 5 MG TABLET PO SCH (10:01)
[2018-09-01 12:56] LABS: ABSOLUTE BASOPHILS # (AUTO) 0.1 10^3/uL (0.0-0.2); ABSOLUTE EOSINOPHILS # (AUTO) 0.1 10^3/uL (0.0-0.6); ABSOLUTE LYMPHOCYTES (AUTO) 1.5 10^3/uL (0.5-4.7); ABSOLUTE NEUT (AUTO) 13.6 10^3/uL (1.7-8.2); BASOPHILS % (AUTO) 0.3 % (0-2); EOSINOPHILS % (AUTO) 0.6 % (0-6); HEMATOCRIT 33.9 % (36.0-47.0); HEMOGLOBIN 11.6 g/dL (12.0-15.5); LYMPHOCYTES % (AUTO) 9.3 % (13-45); MEAN CORPUSCULAR HEMOGLOBIN 27.7 pg (27.0-33.4); MEAN CORPUSCULAR HGB CONC 34.2 g/dL (32.0-36.0); MEAN CORPUSCULAR VOLUME 81 fl (80-97); MONOCYTES % (AUTO) 6.1 % (3-13); PLATELET COUNT 173 10^3/uL (150-450); RED BLOOD COUNT 4.19 10^6/uL (3.72-5.28); RED CELL DISTRIBUTION WIDTH 15.4 % (11.5-14.0); SEGMENTED NEUTROPHILS % (AUTO) 83.7 % (42-78); TOTAL CELLS COUNTED % (AUTO) 100 %; WHITE BLOOD COUNT 16.3 10^3/uL (4.0-10.5)
[2018-09-01 14:23] LABS: ANION GAP 6 (5-19); BLOOD UREA NITROGEN 23 mg/dL (7-20); CALCIUM 8.7 mg/dL (8.4-10.2); CARBON DIOXIDE 27 mmol/L (22-30); CHLORIDE 99 mmol/L (98-107); GLUCOSE 284 mg/dL (75-110); POTASSIUM 4.7 mmol/L (3.6-5.0)
[2018-09-01 14:53] VITALS: BP 136/80
--- NOTE | 2018-09-03 17:53 | PDOC DISCHARGE SUMMARY ---
General - Admit/Disc Date/PCP Admission Date/Primary Care Provider: 08/27/18 17:14 Discharge Date: 09/01/18 - Discharge Diagnosis (1) Diabetic ketoacidosis Is this a current diagnosis for this admission?: Yes (2) Sepsis Is this a current diagnosis for this admission?: Yes (3) Hypokalemia Is this a current diagnosis for this admission?: Yes (4) Acute kidney failure Is this a current diagnosis for this admission?: Yes (5) Atrial fibrillation Is this a current diagnosis for this admission?: No (6) Polysubstance abuse Is this a current diagnosis for this admission?: No - Additional Information Resuscitation Status: Full Code Discharge Diet: As Tolerated Discharge Activity: Activity As Tolerated Prescriptions: Apixaban [Eliquis 5 mg Tablet] 5 mg PO BID #60 tablet Buspirone HCl [Buspar 10 mg Tablet] 10 mg PO Q12 #60 tablet Diltiazem HCl [Cardizem 60 mg Tablet] 60 mg PO Q8 #90 tablet Hum Insulin NPH/Reg Insulin Hm [Insulin 70-30 (NPH/Reg) 100 unit/mL] 25 unit SUBCUT BIDACBS #3 unit Insulin Regular, Human [Humulin R (Reg) Insulin 100 unit/mL] 0 - 12 unit SUBCUT ACHS #2 unit Lancing Device/Lancets [Accu-Chek Softclix Lancet Kit] 1 each ACHS #2 kit Sulfamethoxazole/Trimethoprim [Bactrim Ds Tablet] 1 each PO Q12 10 Days #20 tablet Home Medications: Apixaban [Eliquis 5 mg Tablet] 5 mg PO BID #60 tablet 09/01/18 Buspirone HCl [Buspar 10 mg Tablet] 10 mg PO Q12 #60 tablet 09/01/18 Diltiazem HCl [Cardizem 60 mg Tablet] 60 mg PO Q8 #90 tablet 09/01/18 Hum Insulin NPH/Reg Insulin Hm [Insulin 70-30 (NPH/Reg) 100 unit/mL] 25 unit SUBCUT BIDACBS #3 unit 09/01/18 Insulin Regular, Human [Humulin R (Reg) Insulin 100 unit/mL] 0 - 12 unit SUBCUT ACHS #2 unit 09/01/18 Lancing Device/Lancets [Accu-Chek Softclix Lancet Kit] 1 each ACHS #2 kit 09/01/18 Sulfamethoxazole/Trimethoprim [Bactrim Ds Tablet] 1 each PO Q12 10 Days #20 tablet 09/01/18 History of Present Illness History of Present Illness: Admitting hospitalist's H&P: DENAE PEDERSEN is a 53 year old female with history of diabetes mellitus brought in by EMS with complaints of nausea vomiting for 3-4 days. Unable to get any information from the patient. EMS documented the blood sugar of 750. In the emergency room the fingerstick for glucose was high. No insulin was given until the serum glucose came back at 658. On discussion with the ER physician why no subq insulin was she became defensive and agitated and told me she has to wait for the serum glucose report by the lab test before giving the subcu insulin. I did report the incident to Dr. grewal hospitalist director. pt is in atrial fib with heart rate of 157 the issue is not addressed in the ER. Examination patient is unable to provide any history. Patient is combative. In the emergency room patient received 2 L of normal saline. Found to be urine drug screen is positive for marijuana and cocaine. Hospital Course Hospital Course: This is a 53 yr old female with a PMH of IDDM and polysubstance abuse who as admitted for DKA, sepsis and WILLIE. She was started on IV fluids and insulin drip. Her DKA did resolve. Her confusion also resolved and she returned to baseline. She did have UTI on UA. Blood cultures grew E. coli 2/2, pansensitive. She was continued on IV antibiotics. Repeat blood cultures were negative. She also was found to be in Afib with RVR. She was started on PO cardizem and Eliquis. Risks and benefits of anticoagulation was discussed in length and she is amenable to be on eliquis. Her Hba1c also came back >14. She only takes glipizide at home. She was started on 70/30. Her WILLIE also resolved with IV fluids. Recommended duration of treatment for UTI with bacteremia is 7-14 days. She will be discharged on 10 more days of Bactrim. Physical Exam Vital Signs: Temp Pulse Resp BP Pulse Ox 98.3 F 73 17 136/80 H 99 09/01/18 14:52 09/01/18 14:52 09/01/18 14:52 09/01/18 14:52 09/01/18 14:52 Intake & Output 09/02/18 09/03/18 09/04/18 06:59 06:59 06:59 Intake Total 400 Balance 400 General appearance: PRESENT: no acute distress, well-developed, well-nourished Head exam: PRESENT: atraumatic, normocephalic Eye exam: PRESENT: conjunctiva pink, EOMI, PERRLA. ABSENT: scleral icterus Ear exam: PRESENT: normal external ear exam Mouth exam: PRESENT: moist, tongue midline Neck exam: ABSENT: carotid bruit, JVD, lymphadenopathy, thyromegaly Respiratory exam: PRESENT: clear to auscultation heather. ABSENT: rales, rhonchi, wheezes Cardiovascular exam: PRESENT: RRR. ABSENT: diastolic murmur, rubs, systolic murmur Pulses: PRESENT: normal dorsalis pedis pul GI/Abdominal exam: PRESENT: normal bowel sounds, soft. ABSENT: distended, guarding, mass, organolmegaly, rebound, tenderness Rectal exam: PRESENT: deferred Extremities exam: PRESENT: full ROM. ABSENT: calf tenderness, clubbing, pedal edema Neurological exam: PRESENT: alert, awake, oriented to person, oriented to place, oriented to time, oriented to situation, CN II-XII grossly intact. ABSENT: motor sensory deficit Results Laboratory Results: 09/01/18 12:45 09/01/18 13:55 08/27/18 08/27/18 08/27/18 16:10 16:10 20:51 Creatine Kinase 57 40 CK-MB (CK-2) 0.75 NT-Pro-B Natriuret Pep 08/27/18 08/28/18 08/28/18 20:51 06:06 06:06 Creatine Kinase Cancelled CK-MB (CK-2) 1.02 0.75 NT-Pro-B Natriuret Pep 2400 H 08/28/18 09:25 Creatine Kinase 24 L CK-MB (CK-2) NT-Pro-B Natriuret Pep Impressions: Chest X-Ray 08/27/18 00:00 IMPRESSION: NO ACUTE RADIOGRAPHIC FINDING IN THE CHEST. Qualifiers - * PATIENT BEING DISCHARGED WITH ANY OF THE FOLLOWING DIAGNOSIS: No
== END 2018-09-01 16:00 | disposition home or self-care (01) | DRG 637 ==
LOC: ER 15:38 → EH 17:14 → 3S 22:22
PROVIDERS: ADMIT Internal Medicine; ATTEND Internal Medicine
DX: E11.10 Type 2 diabetes mellitus with ketoacidosis without coma (principal); A41.9 Sepsis, unspecified organism; N39.0 Urinary tract infection, site not specified; N17.9 Acute kidney failure, unspecified; F14.20 Cocaine dependence, uncomplicated; I48.2 Chronic atrial fibrillation; E87.6 Hypokalemia; F12.90 Cannabis use, unspecified, uncomplicated; F17.210 Nicotine dependence, cigarettes, uncomplicated; Z79.01 Long term (current) use of anticoagulants; Z79.4 Long term (current) use of insulin; Z79.899 Other long term (current) drug therapy
CPT/HCPCS: 36415; 51702; 71045; 80048; 80053; 80061; 80307; 81001; 82550; 82553; 82803; 82962; 83036; 83735; 83880; 83930; 84443; 85025; 85027; 86022; 87040; 87077; 87086; 87186; 93005; 93010; 96360; 99291; J0696; J1630; J1815; J1956; J2060; J3480; J3490; J7030; S0028

== ENCOUNTER 2018-10-22 16:34 | Inpatient (IN) | payer MEDICAID ==
[2018-10-22] MEDS ORDERED: NORMAL SALINE 1000 ML 1,000 ML IV ONE ×2 (17:45→19:13)
[2018-10-22] MEDS ORDERED: KETOROLAC TROMETHAMINE INJ/PF 30 MG/1 ML SDV IV ONE (17:46)
[2018-10-22] MEDS ORDERED: OXYCODONE-ACETAMINOPHEN 5-325 MG TABLET PO ONE (17:46)
--- NOTE | 2018-10-22 17:46 | ER Document Report ---
ED General - General Chief Complaint: High Blood Sugar Stated Complaint: BODY PAIN Time Seen by Provider: 10/22/18 17:08 Notes: 53-year-old female patient emergency department chief complaint of"I do not know what is wrong". Eating all over. Having pain in her low back. States that her urine is very dark and smelly. Having a fever at home. Chills. Sweating. Blood sugar has been high. TRAVEL OUTSIDE OF THE [place] IN LAST 30 DAYS: No - HPI Onset: Yesterday Onset/Duration: Gradual, Worse Quality of pain: Achy, Cramping Severity: Severe Pain Level: 5 Associated symptoms: Body/muscle aches, Chest pain, Fever - Related Data Allergies/Adverse Reactions: No Known Allergies Allergy (Verified 10/22/18 16:38) Past Medical History - General Information source: Patient - Social History Smoking Status: Smoker,Current Status Unk Frequency of alcohol use: None Drug Abuse: None Lives with: Family Family History: Reviewed & Not Pertinent - Past Medical History Cardiac Medical History: Reports: Hx Atrial Fibrillation Endocrine Medical History: Reports: Hx Diabetes Mellitus Type 2 Renal/ Medical History: Denies: Hx Peritoneal Dialysis Review of Systems - Review of Systems Constitutional: Fever, Malaise, Weakness EENT: denies: Eye discharge, Throat pain, Difficulty swallowing, Mouth pain Cardiovascular: Palpitations, Heart racing. denies: Chest pain, Syncope Respiratory: denies: Cough, Hurts to breathe, Short of breath, Wheezing Gastrointestinal: denies: Abdominal pain, Diarrhea, Nausea, Vomiting Genitourinary: Burning, Dysuria, Flank pain. denies: Hematuria Female Genitourinary: denies: Vaginal discharge, Vaginal bleeding, Vaginal odor Musculoskeletal: Back pain, Joint pain, Muscle pain Skin: denies: Dryness, Lesions, Lumps, Rash Neurological/Psychological: denies: Confusion, Weakness, Numbness Physical Exam - Vital signs Vitals: Temp 101.0 F H 10/22/18 16:40 Interpretation: Tachycardic, Febrile - General General appearance: Appears well, Anxious In distress: Moderate - HEENT Head: Normocephalic, Atraumatic Eyes: Normal Pupils: PERRL - Respiratory Respiratory status: No respiratory distress Chest status: Nontender Breath sounds: Normal Chest palpation: Normal - Cardiovascular Rhythm: Tachycardia Heart sounds: Normal auscultation Murmur: No - Abdominal Inspection: Normal Distension: No distension Bowel sounds: Normal Tenderness: Nontender Organomegaly: No organomegaly - Back Back: Normal, Nontender - Extremities General upper extremity: Normal inspection, Nontender, Normal color, Normal ROM, Normal temperature General lower extremity: Normal inspection, Nontender, Normal color, Normal ROM, Normal temperature, Normal weight bearing. No: Rafia's sign - Neurological Neuro grossly intact: Yes Cognition: Normal Orientation: AAOx4 [place] Coma Scale Eye Opening: Spontaneous [place] Coma Scale Verbal: Oriented [place] Coma Scale Motor: Obeys Commands A[place] Coma Scale Total: 15 Speech: Normal Motor strength normal: LUE, RUE, LLE, RLE Sensory: Normal - Psychological Associated symptoms: Normal affect, Normal mood - Skin Skin Temperature: Warm Skin Moisture: Dry Skin Color: Normal Course - Re-evaluation Re-evalutation: 10/22/18 19:48 Laboratory 10/22/18 10/22/18 10/22/18 16:47 17:00 17:00 WBC 11.2 H RBC 4.45 Hgb 12.1 Hct 36.6 MCV 82 MCH 27.2 MCHC 33.0 RDW 14.5 H Plt Count 247 Seg Neutrophils % 71.0 Lymphocytes % 17.0 Monocytes % 11.4 Eosinophils % 0.2 Basophils % 0.4 Absolute Neutrophils 7.9 Absolute Lymphocytes 1.9 Absolute Monocytes 1.3 Absolute Eosinophils 0.0 Absolute Basophils 0.0 VBG pH VBG pCO2 VBG HCO3 VBG Base Excess Sodium 135.5 L Potassium 4.2 Chloride 98 Carbon Dioxide 26 Anion Gap 12 BUN 16 Creatinine 0.96 Est GFR ( Amer) > 60 Est GFR (Non-Af Amer) > 60 Glucose 346 H POC Glucose 334 H Lactic Acid Calcium 10.2 Total Bilirubin 0.6 Direct Bilirubin 0.3 Neonat Total Bilirubin Not Reportable Neonat Direct Bilirubin Not Reportable Neonat Indirect Bili Not Reportable AST 31 ALT 55 H Alkaline Phosphatase 142 H Creatine Kinase 37 Troponin I Total Protein 7.8 Albumin 3.9 Urine Color Urine Appearance Urine pH Ur Specific [place] Urine Protein Urine Glucose (UA) Urine Ketones Urine Blood Urine Nitrite Urine Bilirubin Urine Urobilinogen Ur Leukocyte Esterase Urine WBC (Auto) Urine RBC (Auto) U Hyaline Cast (Auto) Urine Bacteria (Auto) Urine WBC Clumps Squamous Epi Cells Auto Urine Mucus (Auto) Urine Ascorbic Acid Urine Opiates Screen Urine Methadone Screen Ur Barbiturates Screen Ur Phencyclidine Scrn Ur Amphetamines Screen U Benzodiazepines Scrn Urine Cocaine Screen U Marijuana (THC) Screen 10/22/18 10/22/18 10/22/18 17:00 17:00 17:00 WBC RBC Hgb Hct MCV MCH MCHC RDW Plt Count Seg Neutrophils % Lymphocytes % Monocytes % Eosinophils % Basophils % Absolute Neutrophils Absolute Lymphocytes Absolute Monocytes Absolute Eosinophils Absolute Basophils VBG pH 7.50 H VBG pCO2 34.9 L VBG HCO3 26.7 VBG Base Excess 3.7 Sodium Potassium Chloride Carbon Dioxide Anion Gap BUN Creatinine Est GFR ( Amer) Est GFR (Non-Af Amer) Glucose POC Glucose Lactic Acid 1.7 Calcium Total Bilirubin Direct Bilirubin Neonat Total Bilirubin Neonat Direct Bilirubin Neonat Indirect Bili AST ALT Alkaline Phosphatase Creatine Kinase Troponin I < 0.012 Total Protein Albumin Urine Color Urine Appearance Urine pH Ur Specific [place] Urine Protein Urine Glucose (UA) Urine Ketones Urine Blood Urine Nitrite Urine Bilirubin Urine Urobilinogen Ur Leukocyte Esterase Urine WBC (Auto) Urine RBC (Auto) U Hyaline Cast (Auto) Urine Bacteria (Auto) Urine WBC Clumps Squamous Epi Cells Auto Urine Mucus (Auto) Urine Ascorbic Acid Urine Opiates Screen Urine Methadone Screen Ur Barbiturates Screen Ur Phencyclidine Scrn Ur Amphetamines Screen U Benzodiazepines Scrn Urine Cocaine Screen U Marijuana (THC) Screen 10/22/18 10/22/18 17:10 17:10 WBC RBC Hgb Hct MCV MCH MCHC RDW Plt Count Seg Neutrophils % Lymphocytes % Monocytes % Eosinophils % Basophils % Absolute Neutrophils Absolute Lymphocytes Absolute Monocytes Absolute Eosinophils Absolute Basophils VBG pH VBG pCO2 VBG HCO3 VBG Base Excess Sodium Potassium Chloride Carbon Dioxide Anion Gap BUN Creatinine Est GFR ( Amer) Est GFR (Non-Af Amer) Glucose POC Glucose Lactic Acid Calcium Total Bilirubin Direct Bilirubin Neonat Total Bilirubin Neonat Direct Bilirubin Neonat Indirect Bili AST ALT Alkaline Phosphatase Creatine Kinase Troponin I Total Protein Albumin Urine Color YELLOW Urine Appearance CLOUDY Urine pH 6.0 Ur Specific [place] 1.016 Urine Protein 30 H Urine Glucose (UA) >=500 H Urine Ketones NEGATIVE Urine Blood MODERATE H Urine Nitrite NEGATIVE Urine Bilirubin NEGATIVE Urine Urobilinogen NEGATIVE Ur Leukocyte Esterase LARGE H Urine WBC (Auto) >182 Urine RBC (Auto) 6 U Hyaline Cast (Auto) 1 Urine Bacteria (Auto) 1+ Urine WBC Clumps MANY Squamous Epi Cells Auto 1 Urine Mucus (Auto) RARE Urine Ascorbic Acid NEGATIVE Urine Opiates Screen NEGATIVE Urine Methadone Screen NEGATIVE Ur Barbiturates Screen NEGATIVE Ur Phencyclidine Scrn NEGATIVE Ur Amphetamines Screen NEGATIVE U Benzodiazepines Scrn NEGATIVE Urine Cocaine Screen NEGATIVE U Marijuana (THC) Screen NEGATIVE 10/22/18 19:54 Patient has fever, tachycardia, abnormal urine. There is a concern for possible pyelonephritis awaiting CT scan. I am treating at this time with antibiotics. The rest of her labs are fairly unremarkable with exception of her glucose but patient is not in DKA. I am giving IV fluids, pain medication, antibiotics. If the CT scan is unremarkable but likely will DC. 10/22/18 21:56 Patient has elevated WBC count and CT scan concerning for bilateral pyelonephritis. She has been tachycardic and febrile most of the visit here. At this time I am going to consult with the hospitalist for possible admission. - Vital Signs Vital signs: Temp Pulse Resp BP Pulse Ox 101.0 F H 17 139/66 H 99 10/22/18 17:30 10/22/18 20:31 10/22/18 20:31 10/22/18 20:31 - Laboratory Result Diagrams: 10/22/18 17:00 10/22/18 17:00 Laboratory results interpreted by me: 10/22/18 10/22/18 10/22/18 16:47 17:00 17:00 WBC 11.2 H RDW 14.5 H VBG pH VBG pCO2 Sodium 135.5 L Glucose 346 H POC Glucose 334 H ALT 55 H Alkaline Phosphatase 142 H Urine Protein Urine Glucose (UA) Urine Blood Ur Leukocyte Esterase 10/22/18 10/22/18 17:00 17:10 WBC RDW VBG pH 7.50 H VBG pCO2 34.9 L Sodium Glucose POC Glucose ALT Alkaline Phosphatase Urine Protein 30 H Urine Glucose (UA) >=500 H Urine Blood MODERATE H Ur Leukocyte Esterase LARGE H Discharge - Discharge Clinical Impression: Pyelonephritis Condition: Good Disposition: ADMITTED INPATIENT Admitting Provider: Juana (Hospitalist) Unit Admitted: Medical Floor
[2018-10-22] MEDS ORDERED: ACETAMINOPHEN 325 MG TABLET PO ONE (17:56)
[2018-10-22 18:16] LABS: VENOUS BLOOD BASE EXCESS 3.7 mmol/L; VENOUS BLOOD HCO3 26.7 mmol/L (20-32); VENOUS BLOOD PCO2 34.9 mmHg (35-63); VENOUS BLOOD PH 7.5 (7.30-7.42)
[2018-10-22 18:19] LABS: ABSOLUTE LYMPHOCYTES (AUTO) 1.9 10^3/uL (0.5-4.7); ABSOLUTE MONOCYTES (AUTO) 1.3 10^3/uL (0.1-1.4); ABSOLUTE NEUT (AUTO) 7.9 10^3/uL (1.7-8.2); BASOPHILS % (AUTO) 0.4 % (0-2); EOSINOPHILS % (AUTO) 0.2 % (0-6); HEMATOCRIT 36.6 % (36.0-47.0); HEMOGLOBIN 12.1 g/dL (12.0-15.5); MEAN CORPUSCULAR HEMOGLOBIN 27.2 pg (27.0-33.4); MEAN CORPUSCULAR VOLUME 82 fl (80-97); MONOCYTES % (AUTO) 11.4 % (3-13); PLATELET COUNT 247 10^3/uL (150-450); RED BLOOD COUNT 4.45 10^6/uL (3.72-5.28); RED CELL DISTRIBUTION WIDTH 14.5 % (11.5-14.0); TOTAL CELLS COUNTED % (AUTO) 100 %; WHITE BLOOD COUNT 11.2 10^3/uL (4.0-10.5)
[2018-10-22 18:23] LABS: ALANINE AMINOTRANSFERASE 55 U/L (9-52); ALBUMIN 3.9 g/dL (3.5-5.0); ALKALINE PHOSPHATASE 142 U/L (38-126); ANION GAP 12 (5-19); ASPARTATE AMINO TRANSFERASE 31 U/L (14-36); BILIRUBIN,DIRECT 0.3 mg/dL (0.0-0.4); BILIRUBIN,TOTAL 0.6 mg/dL (0.2-1.3); BLOOD UREA NITROGEN 16 mg/dL (7-20); CALCIUM 10.2 mg/dL (8.4-10.2); CARBON DIOXIDE 26 mmol/L (22-30); CHLORIDE 98 mmol/L (98-107); CREATINE KINASE 37 U/L (30-135); GLUCOSE 346 mg/dL (75-110); POTASSIUM 4.2 mmol/L (3.6-5.0); SODIUM 135.5 mmol/L (137-145); TOTAL PROTEIN 7.8 g/dL (6.3-8.2)
[2018-10-22 18:29] LABS: APPEARANCE,URINE CLOUDY; BILIRUBIN,URINE NEGATIVE (NEGATIVE); COLOR,URINE YELLOW; GLUCOSE, URINE >=500 mg/dL (NEGATIVE); KETONES,URINE NEGATIVE (NEGATIVE); LEUKOCYTE ESTERASE,URINE LARGE (NEGATIVE); NITRITE,URINE NEGATIVE (NEGATIVE); PROTEIN,URINE 30 mg/dL (NEGATIVE); URINE SPECIFIC GRAVITY 1.016; UROBILINOGEN,URINE NEGATIVE mg/dL (<2.0)
[2018-10-22 18:38] LABS: URINE AMPHETAMINES SCREEN NEGATIVE; URINE BARBITURATES SCREEN NEGATIVE; URINE BENZODIAZEPINES SCREEN NEGATIVE; URINE COCAINE SCREEN NEGATIVE; URINE MARIJUANA (THC) SCREEN NEGATIVE; URINE METHADONE SCREEN NEGATIVE; URINE PHENCYCLIDINE SCREEN NEGATIVE
[2018-10-22] MEDS ORDERED: CEFTRIAXONE 2 GM/D5W RTU 2 GM/50 ML RTUPB IV ONE (19:13)
[2018-10-22] MEDS ORDERED: IBUPROFEN 600 MG TABLET PO ONE (21:17)
--- NOTE | 2018-10-22 21:47 | RADIOLOGY REPORT (SQ) ---
EXAM DESCRIPTION: CT ABDOMEN PELVIS WITH IV CONTRAST COMPLETED DATE/TME: 10/22/2018 19:52 CLINICAL HISTORY: 53 years, Female, flank pain and fever COMPARISON: CLINICAL HISTORY: flank pain and fever COMPARISON: December 04, 2010 TECHNIQUE: Contiguous axial images of the abdomen and pelvis were obtained followed by reconstruction images. This exam was performed according to our departmental dose-optimization program, which includes automated exposure control, adjustment of the mA and/or kV according to patient size and/or use of iterative reconstruction technique. FINDINGS: Increased opacity within the dependent portion of the lungs may represent atelectasis. Areas of abnormal enhancing involving both kidneys compatible with pyelonephritis. There is atherosclerosis. Uterus is enlarged. Calcifications within the uterus and exophytic partially calcified uterine masses compatible with a myomatous uterus. The liver, spleen, pancreas and kidneys are otherwise within normal limits. There is no hydronephrosis. The gallbladder is unremarkable by CT criteria. Adrenal glands are within normal limits. Aorta is of normal caliber and tapering. There is no free fluid in the abdomen or pelvis. There is no bowel obstruction. Appendix was visualized and within normal limits. IMPRESSION: Abnormal bilateral renal enhancement compatible with pyelonephritis. Findings compatible with a myomatous uterus.
--- NOTE | 2018-10-22 22:12 | EKG REPORT ---
SEVERITY:- ABNORMAL ECG - SINUS RHYTHM NONSPECIFIC T ABNORMALITIES, LATERAL LEADS : Confirmed by: Toi Parker MD 22-Oct-2018 22:11:06
[2018-10-22] MEDS ORDERED: MAGNESIUM HYDROXIDE SUSP 30 ML UDCUP PO PRN (22:53)
[2018-10-22] MEDS ORDERED: ONDANSETRON HCL INJ/PF 4 MG/2 ML SDV IV PRN (22:53)
[2018-10-22] MEDS ORDERED: MAG HYDROX/AL HYDROX/SIMETH SUSP 30 ML UDCUP PO PRN (22:53)
[2018-10-22] MEDS ORDERED: LEVALBUTEROL HCL NEB 0.63 MG/3 ML AMPUL NEB PRN (23:03)
[2018-10-22] MEDS ORDERED: NICOTINE 21 MG/24 HR PATCH.TD24 TD PRN (23:03)
[2018-10-22] MEDS ORDERED: IBUPROFEN 800 MG TABLET PO PRN (23:03)
[2018-10-22] MEDS ORDERED: ACETAMINOPHEN 325 MG TABLET PO PRN (23:03)
[2018-10-22] MEDS ORDERED: DEXTROSE 50%-WATER 25 GM/50 ML DISP.SYRIN IV PRN ×2 (23:06)
[2018-10-22] MEDS ORDERED: DEXTROSE 40% GEL 15 GM TUBE PO PRN ×2 (23:06)
[2018-10-22] MEDS ORDERED: GLUCAGON,HUMAN RECOMB 1 MG INJ IM PRN (23:06)
[2018-10-22] MEDS ORDERED: MELATONIN 5 MG TABLET PO PRN (23:10)
[2018-10-23] MEDS: RINGERS SOLUTION,LACTATED 1,000 ML IV PRN ×2 (00:15→05:41)
[2018-10-23] MEDS ORDERED: DILTIAZEM HCL 60 MG TABLET ONE (05:30)
--- NOTE | 2018-10-23 05:34 | PDOC H&P ---
History of Present Illness Admission Date/PCP: 10/22/18 22:09 No PCP Patient complains of: Malaise History of Present Illness: DENAE PEDERSEN is a 53 year old female who presents the emergency room with a one- week history of progressively worsening malaise. She admits that she has been suffering with body aches that have progressed from mild to severe constant generalized aching pain all over. She further admits that over the last 2 days she has been having very dark malodorous urine and has noticed a fever with chills as well as diaphoresis and her blood sugar has been uncontrollable. She denies prior similar episodes and has not identified any aggravating or ameliorating factors for her malaise. In the emergency room she was found to have a significant urinary tract infection with bilateral pyelonephritis noted on CT scan. Patient was subsequently admitted to the hospital for further evaluation and treatment. Past Medical History Cardiac Medical History: Reports: Atrial Fibrillation Denies: Coronary Artery Disease, Myocardial Infarction, Hypertension Pulmonary Medical History: Denies: Asthma, Chronic Obstructive Pulmonary Disease (COPD) EENT Medical History: Denies: Cataracts, Eyes - Prescription lenses, Ears - Hearing aids Neurological Medical History: Denies: Hemorrhagic CVA, Ischemic CVA, Seizures Endocrine Medical History: Reports: Diabetes Mellitus Type 2 Denies: Diabetes Mellitus Type 1, Hyperthyroidism, Hypothyroidism Renal/ Medical History: Denies: Chronic Kidney Disease, Nephrolithiasis Malignancy Medical History: Reports: None GI Medical History: Denies: Cirrhosis, Hepatitis Musculoskeltal Medical History: Denies: Arthritis, Gout Skin Medical History: Denies: Eczema, Psoriasis Psychiatric Medical History: Reports: Substance Abuse, Tobacco Dependency Denies: Alcohol Dependency Traumatic Medical History: Reports: None Hematology: Denies: Anemia, Bleeding Tendencies Infectious Medical History: Reports: None Past Surgical History Past Surgical History: Reports: None Social History Information Source: Patient Lives with: Family Smoking Status: Current Every Day Smoker Frequency of Alcohol Use: None Hx Recreational Drug Use: Yes - Not currently using Drugs: Cocaine, Marijuana Hx Prescription Drug Abuse: No - Advance Directive Resuscitation Status: Full Code Surrogate healthcare decision maker:: Yvonne Medina Family History Family History: DM. denies: CAD, Hypertension, Malignancy Parental Family History Reviewed: Yes Children Family History Reviewed: No Sibling(s) Family History Reviewed.: Yes Medication/Allergy Home Medications: Apixaban [Eliquis 5 mg Tablet] 5 mg PO BID #60 tablet 09/01/18 Buspirone HCl [Buspar 10 mg Tablet] 10 mg PO Q12 #60 tablet 09/01/18 Diltiazem HCl [Cardizem 60 mg Tablet] 60 mg PO Q8 #90 tablet 09/01/18 Hum Insulin NPH/Reg Insulin Hm [Insulin 70-30 (NPH/Reg) 100 unit/mL] 25 unit SUBCUT BIDACBS #3 unit 09/01/18 Insulin Regular, Human [Humulin R (Reg) Insulin 100 unit/mL] 0 - 12 unit SUBCUT ACHS #2 unit 09/01/18 Lancing Device/Lancets [Accu-Chek Softclix Lancet Kit] 1 each MC ACHS #2 kit 09/01/18 Sulfamethoxazole/Trimethoprim [Bactrim Ds Tablet] 1 each PO Q12 10 Days #20 tablet 09/01/18 Allergies/Adverse Reactions: No Known Allergies Allergy (Verified 10/22/18 16:38) Review of Systems Constitutional: PRESENT: as per HPI, chills, fever(s), other - Diaphoresis, malaise Eyes: ABSENT: visual disturbances, other - Ocular pain Ears: ABSENT: hearing changes, other - Ear pain Nose, Mouth, and Throat: ABSENT: mouth pain, sore throat Cardiovascular: ABSENT: chest pain, dyspnea on exertion, palpitations Respiratory: ABSENT: cough, dyspnea Gastrointestinal: ABSENT: abdominal pain, constipation, diarrhea, nausea, vomiting Genitourinary: ABSENT: dysuria, hematuria Musculoskeletal: PRESENT: as per HPI, other - Generalized severe body aches and pains (malaise) Integumentary: PRESENT: as per HPI, diaphoresis. ABSENT: pruritus, rash Neurological: ABSENT: confusion, convulsions, focal weakness, memory loss, syncope Psychiatric: ABSENT: anxiety, depression Endocrine: ABSENT: cold intolerance, heat intolerance Hematologic/Lymphatic: ABSENT: easy bleeding, easy bruising Physical Exam Vital Signs: Temp Pulse Resp BP Pulse Ox 101.0 F H 17 139/66 H 99 10/22/18 17:30 10/22/18 20:31 10/22/18 20:31 10/22/18 20:31 Intake & Output 10/20/18 10/21/18 10/22/18 23:59 23:59 23:59 Intake Total 2049 Balance 2049 General appearance: PRESENT: no acute distress, cooperative Head exam: PRESENT: atraumatic, normocephalic Eye exam: ABSENT: conjunctival injection, scleral icterus Ear exam: PRESENT: normal external ear exam. ABSENT: bleeding, drainage Mouth exam: PRESENT: dry mucosa, neck supple Neck exam: ABSENT: thyromegaly, tracheal deviation Respiratory exam: PRESENT: clear to auscultation heather, symmetrical, unlabored Cardiovascular exam: PRESENT: RRR. ABSENT: clicks, gallop, rubs Pulses: PRESENT: normal radial pulses, normal dorsalis pedis pul Vascular exam: PRESENT: normal capillary refill. ABSENT: pallor GI/Abdominal exam: PRESENT: normal bowel sounds, soft Rectal exam: PRESENT: deferred Gentrourinary exam: PRESENT: other - Severe bilateral costovertebral angle tenderness, severe tenderness bilateral flanks Extremities exam: ABSENT: joint swelling, pedal edema Musculoskeletal exam: PRESENT: full ROM, normal inspection Neurological exam: PRESENT: alert, oriented to person, oriented to place, oriented to time, oriented to situation, CN II-XII grossly intact. ABSENT: motor sensory deficit Psychiatric exam: PRESENT: appropriate affect, normal mood Skin exam: PRESENT: dry, intact, warm. ABSENT: jaundice, rash, urticaria Results Laboratory Results: 10/22/18 17:00 10/22/18 17:00 10/22/18 10/22/18 10/22/18 17:00 17:00 17:00 WBC 11.2 H RBC 4.45 Hgb 12.1 Hct 36.6 MCV 82 MCH 27.2 MCHC 33.0 RDW 14.5 H Plt Count 247 Seg Neutrophils % 71.0 Lymphocytes % 17.0 Monocytes % 11.4 Eosinophils % 0.2 Basophils % 0.4 Absolute Neutrophils 7.9 Absolute Lymphocytes 1.9 Absolute Monocytes 1.3 Absolute Eosinophils 0.0 Absolute Basophils 0.0 VBG pH VBG pCO2 VBG HCO3 VBG Base Excess Sodium 135.5 L Potassium 4.2 Chloride 98 Carbon Dioxide 26 Anion Gap 12 BUN 16 Creatinine 0.96 Est GFR ( Amer) > 60 Est GFR (Non-Af Amer) > 60 Glucose 346 H Lactic Acid 1.7 Calcium 10.2 Total Bilirubin 0.6 AST 31 ALT 55 H Alkaline Phosphatase 142 H Total Protein 7.8 Albumin 3.9 Urine Color Urine Appearance Urine pH Ur Specific [place] Urine Protein Urine Glucose (UA) Urine Ketones Urine Blood Urine Nitrite Ur Leukocyte Esterase Urine WBC (Auto) Urine RBC (Auto) 10/22/18 10/22/18 17:00 17:10 WBC RBC Hgb Hct MCV MCH MCHC RDW Plt Count Seg Neutrophils % Lymphocytes % Monocytes % Eosinophils % Basophils % Absolute Neutrophils Absolute Lymphocytes Absolute Monocytes Absolute Eosinophils Absolute Basophils VBG pH 7.50 H VBG pCO2 34.9 L VBG HCO3 26.7 VBG Base Excess 3.7 Sodium Potassium Chloride Carbon Dioxide Anion Gap BUN Creatinine Est GFR ( Amer) Est GFR (Non-Af Amer) Glucose Lactic Acid Calcium Total Bilirubin AST ALT Alkaline Phosphatase Total Protein Albumin Urine Color YELLOW Urine Appearance CLOUDY Urine pH 6.0 Ur Specific [place] 1.016 Urine Protein 30 H Urine Glucose (UA) >=500 H Urine Ketones NEGATIVE Urine Blood MODERATE H Urine Nitrite NEGATIVE Ur Leukocyte Esterase LARGE H Urine WBC (Auto) >182 Urine RBC (Auto) 6 10/22/18 10/22/18 17:00 17:00 Creatine Kinase 37 Troponin I < 0.012 Impressions: Abdomen/Pelvis CT 10/22/18 19:52 IMPRESSION: Abnormal bilateral renal enhancement compatible with pyelonephritis. Findings compatible with a myomatous uterus. Assessment and Plan - Diagnosis (1) Pyelonephritis Is this a current diagnosis for this admission?: Yes Plan: Patient's pyelonephritis was treated with IV antibiotics utilizing Rocephin initially as urine cultures are pending. She will also be treated with IV fluids and other supportive and symptomatic cares as required. The pain associated with her malaise secondary to pyelonephritis will be treated with Tylenol and/or ibuprofen orally at her request. Patient does not wish to be treated with narcotic or opiate medications of any type. (2) Tobacco use disorder, severe, dependence Is this a current diagnosis for this admission?: Yes Plan: Smoking cessation is advised and counseled briefly. Nicotine replacement patch is available for the patient's use. (3) Diabetes mellitus type 2 in nonobese Is this a current diagnosis for this admission?: Yes Plan: Patient will be continued on her usual diabetic therapy once her medication list is verified. In the meantime she will be treated with a sliding scale insulin and before meals and at bedtime blood sugars. She will be maintained on a diabetic diet and a hemoglobin A1c will be obtained to assess her current therapy. (4) Atrial fibrillation Qualifiers: Atrial fibrillation type: paroxysmal Qualified Code(s): I48.0 - Paroxysmal atrial fibrillation Is this a current diagnosis for this admission?: Yes Plan: Patient has a history of atrial fibrillation and is on chronic anticoagulation with apixaban. She is in sinus rhythm with time my evaluation however I believe that she has paroxysmal episodes of her atrial fibrillation, according to her description. She will be continued on her current medications relevant to her atrial fibrillation including apixaban and diltiazem. - Time Time Spent with patient: 15-24 minutes Smoking Cessation Education: 3 to 10 minutes Medications reviewed and adjusted accordingly: Yes - Inpatient Certification Based on my medical assessment, after consideration of the patient's comorbidities, presenting symptoms, or acuity I expect that the services needed warrant INPATIENT care.: Yes I certify that my determination is in accordance with my understanding of Medicare's requirements for reasonable and necessary INPATIENT services [42 CFR 412.3e].: Yes Medical Necessity: Significant Comorbidiites Make Outpatient Treatment Too Risky, Need Close Monitoring Due to Risk of Patient Decompensation, Need For IV Fluids, Need for Pain Control, Need for IV Antibiotics, Risk of Complication if Not Cared For in Hospital
[2018-10-23] MEDS: DILTIAZEM HCL 60 MG TABLET PO SCH ×3 (05:40→22:21)
[2018-10-23 06:02] LABS: ABSOLUTE EOSINOPHILS # (AUTO) 0.1 10^3/uL (0.0-0.6); ABSOLUTE LYMPHOCYTES (AUTO) 2.4 10^3/uL (0.5-4.7); ABSOLUTE MONOCYTES (AUTO) 1.2 10^3/uL (0.1-1.4); BASOPHILS % (AUTO) 0.4 % (0-2); EOSINOPHILS % (AUTO) 0.8 % (0-6); HEMATOCRIT 32.3 % (36.0-47.0); HEMOGLOBIN 10.9 g/dL (12.0-15.5); LYMPHOCYTES % (AUTO) 22.4 % (13-45); MEAN CORPUSCULAR HEMOGLOBIN 27.6 pg (27.0-33.4); MEAN CORPUSCULAR HGB CONC 33.7 g/dL (32.0-36.0); MEAN CORPUSCULAR VOLUME 82 fl (80-97); MONOCYTES % (AUTO) 11.3 % (3-13); PLATELET COUNT 218 10^3/uL (150-450); RED BLOOD COUNT 3.96 10^6/uL (3.72-5.28); RED CELL DISTRIBUTION WIDTH 14.5 % (11.5-14.0); SEGMENTED NEUTROPHILS % (AUTO) 65.1 % (42-78); TOTAL CELLS COUNTED % (AUTO) 100 %; WHITE BLOOD COUNT 10.8 10^3/uL (4.0-10.5)
[2018-10-23 06:31] LABS: ANION GAP 8 (5-19); BLOOD UREA NITROGEN 14 mg/dL (7-20); CALCIUM 9.3 mg/dL (8.4-10.2); CARBON DIOXIDE 25 mmol/L (22-30); CHLORIDE 105 mmol/L (98-107); CHOLESTEROL 178.94 mg/dL (0-200); GLUCOSE 306 mg/dL (75-110); POTASSIUM 4.3 mmol/L (3.6-5.0); SODIUM 138.3 mmol/L (137-145); TRIGLYCERIDES 175 mg/dL (<150)
[2018-10-23 06:42] LABS: DIRECT LDL 82 mg/dL (<100)
[2018-10-23 06:47] LABS: FREE T3 3.26 pg/mL (2.77-5.27); FREE T4 (FREE THYROXINE) 2.21 ng/dL (0.78-2.19)
[2018-10-23 07:01] LABS: THYROID STIMULATING HORMONE 0.51 uIU/mL (0.47-4.68)
[2018-10-23] MEDS: INSULIN REG, HUMAN 100 UNIT/ML 3 ML VIAL (PYX) SUBCUT SCH ×4 (09:14→22:39)
[2018-10-23] MEDS: DOCUSATE SODIUM 100 MG CAPSULE PO SCH ×2 (09:15→17:22)
[2018-10-23] MEDS: FAMOTIDINE 20 MG TABLET PO SCH ×2 (09:15→22:21)
[2018-10-23] MEDS: BUSPIRONE HCL 10 MG TABLET PO SCH ×2 (09:16→22:21)
[2018-10-23] MEDS: APIXABAN 5 MG TABLET PO SCH ×2 (10:16→17:22)
[2018-10-23] MEDS ORDERED: CEFTRIAXONE 1 GM/D5W RTU 1 GM/50 ML RTUPB IV SCH (18:00)
[2018-10-23] MEDS ORDERED: CEFTRIAXONE SODIUM 1,000 MG in DEXTROSE 5%-WATER 50 ML IV SCH (18:00)
[2018-10-24] MEDS: DILTIAZEM HCL 60 MG TABLET PO SCH (06:14)
[2018-10-24 06:49] LABS: ABSOLUTE EOSINOPHILS # (AUTO) 0.2 10^3/uL (0.0-0.6); ABSOLUTE LYMPHOCYTES (AUTO) 2.5 10^3/uL (0.5-4.7); ABSOLUTE MONOCYTES (AUTO) 1.2 10^3/uL (0.1-1.4); BASOPHILS % (AUTO) 0.3 % (0-2); EOSINOPHILS % (AUTO) 1.7 % (0-6); HEMATOCRIT 32.8 % (36.0-47.0); LYMPHOCYTES % (AUTO) 27.9 % (13-45); MEAN CORPUSCULAR HEMOGLOBIN 27.5 pg (27.0-33.4); MEAN CORPUSCULAR HGB CONC 33.6 g/dL (32.0-36.0); MEAN CORPUSCULAR VOLUME 82 fl (80-97); MONOCYTES % (AUTO) 13.4 % (3-13); PLATELET COUNT 249 10^3/uL (150-450); RED BLOOD COUNT 4.01 10^6/uL (3.72-5.28); RED CELL DISTRIBUTION WIDTH 14.5 % (11.5-14.0); SEGMENTED NEUTROPHILS % (AUTO) 56.7 % (42-78); TOTAL CELLS COUNTED % (AUTO) 100 %; WHITE BLOOD COUNT 8.9 10^3/uL (4.0-10.5)
[2018-10-24 07:24] LABS: BLOOD UREA NITROGEN 17 mg/dL (7-20); CALCIUM 9.7 mg/dL (8.4-10.2); CARBON DIOXIDE 26 mmol/L (22-30); GLUCOSE 210 mg/dL (75-110); POTASSIUM 4.4 mmol/L (3.6-5.0); SODIUM 138.7 mmol/L (137-145)
[2018-10-24 07:26] LABS: ANION GAP 8 (5-19); CHLORIDE 105 mmol/L (98-107)
[2018-10-24] MEDS: INSULIN REG, HUMAN 100 UNIT/ML 3 ML VIAL (PYX) SUBCUT SCH (08:35)
--- NOTE | 2018-10-24 08:46 | PDOC PROGRESS REPORT ---
Subjective Progress Note for:: 10/23/18 Subjective:: DENAE PEDERSEN is a 53 year old female with a PMH of AFIB, tobacco and substance abuse. She presented the emergency room with a one-week history of progressively worsening malaise. CT showed bilateral pyelonephritis. Patient was admitted to the hospitalist service for pyelonephritis. The patient was seen on rounds, she states she feels much better today when compared to yesterday. No CVA tenderness. LCTA. S1S2. Waiting for urine C&S. Since patient is stable and labs have normalized, will likely send home on PO antibiotics within 24 hours. Reason For Visit: BILATERAL PYELEONEPHRITIS Physical Exam Vital Signs: Temp Pulse Resp BP Pulse Ox 98.7 F 72 18 130/71 H 97 10/24/18 07:36 10/24/18 07:36 10/24/18 07:36 10/24/18 07:36 10/24/18 07:36 Intake & Output 10/23/18 10/24/18 10/25/18 06:59 06:59 06:59 Intake Total 3557 1950 Output Total 200 Balance 3357 1950 Weight 76.5 kg 76.7 kg General appearance: PRESENT: no acute distress, well-developed, well-nourished Head exam: PRESENT: atraumatic, normocephalic Eye exam: PRESENT: conjunctiva pink, EOMI, PERRLA. ABSENT: scleral icterus Ear exam: PRESENT: normal external ear exam Mouth exam: PRESENT: moist, tongue midline Neck exam: ABSENT: carotid bruit, JVD, lymphadenopathy, thyromegaly Respiratory exam: PRESENT: clear to auscultation heather. ABSENT: rales, rhonchi, wheezes Cardiovascular exam: PRESENT: RRR. ABSENT: diastolic murmur, rubs, systolic murmur Pulses: PRESENT: normal dorsalis pedis pul Vascular exam: PRESENT: normal capillary refill GI/Abdominal exam: PRESENT: normal bowel sounds, soft. ABSENT: distended, guarding, mass, organolmegaly, rebound, tenderness Rectal exam: PRESENT: deferred Extremities exam: PRESENT: full ROM. ABSENT: calf tenderness, clubbing, pedal edema Neurological exam: PRESENT: alert, awake, oriented to person, oriented to place, oriented to time, oriented to situation Psychiatric exam: PRESENT: appropriate affect, normal mood Skin exam: PRESENT: dry, intact, warm. ABSENT: cyanosis, rash Results Laboratory Results: 10/24/18 06:29 10/24/18 06:29 10/24/18 10/24/18 06:29 06:29 WBC 8.9 RBC 4.01 Hgb 11.0 L Hct 32.8 L MCV 82 MCH 27.5 MCHC 33.6 RDW 14.5 H Plt Count 249 Seg Neutrophils % 56.7 Lymphocytes % 27.9 Monocytes % 13.4 H Eosinophils % 1.7 Basophils % 0.3 Absolute Neutrophils 5.0 Absolute Lymphocytes 2.5 Absolute Monocytes 1.2 Absolute Eosinophils 0.2 Absolute Basophils 0.0 Sodium 138.7 Potassium 4.4 Chloride 105 Carbon Dioxide 26 Anion Gap 8 BUN 17 Creatinine 0.83 Est GFR ( Amer) > 60 Est GFR (Non-Af Amer) > 60 Glucose 210 H Calcium 9.7 Magnesium 1.8 10/22/18 10/22/18 17:00 17:00 Creatine Kinase 37 Troponin I < 0.012 Impressions: Abdomen/Pelvis CT 10/22/18 19:52 IMPRESSION: Abnormal bilateral renal enhancement compatible with pyelonephritis. Findings compatible with a myomatous uterus. Status: Imported from PACS Assessment and Plan - Diagnosis (1) Pyelonephritis Is this a current diagnosis for this admission?: Yes Plan: Seen on CT Continue treating with IV Rocephin PRN Tylenol and/or ibuprofen orally ONLY at her request. Patient does not wish to be treated with narcotic or opiate medications of any type. Urine and blood cultures pending (2) Diabetes mellitus type 2 in nonobese Is this a current diagnosis for this admission?: Yes Plan: [facility] DM type 2 [facility] SSI Diabetic diet (3) Tobacco use disorder, severe, dependence Is this a current diagnosis for this admission?: Yes Plan: Nicotine patch - Time Time Spent with patient: 15-24 minutes Medications reviewed and adjusted accordingly: Yes Anticipated discharge: Home Within: within 24 hours, within 48 hours - Inpatient Certification Based on my medical assessment, after consideration of the patient's comorbidities, presenting symptoms, or acuity I expect that the services needed warrant INPATIENT care.: Yes I certify that my determination is in accordance with my understanding of Medicare's requirements for reasonable and necessary INPATIENT services [42 CFR 412.3e].: Yes Medical Necessity: Risk of Complication if Not Cared For in Hospital
--- NOTE | 2018-10-24 09:08 | PDOC DISCHARGE SUMMARY ---
General - Admit/Disc Date/PCP Admission Date/Primary Care Provider: 10/22/18 22:09 Discharge Date: 10/24/18 - Discharge Diagnosis (1) Pyelonephritis Is this a current diagnosis for this admission?: Yes (2) Diabetes mellitus type 2 in nonobese Is this a current diagnosis for this admission?: Yes (3) Tobacco use disorder, severe, dependence Is this a current diagnosis for this admission?: Yes - Additional Information Resuscitation Status: Full Code Discharge Diet: As Tolerated Discharge Activity: Activity As Tolerated Home Medications: RX: No Home Medications 10/23/18 History of Present Illness History of Present Illness: DENAE PEDERSEN is a 53 year old female who presents the emergency room with a one- week history of progressively worsening malaise. She admits that she has been suffering with body aches that have progressed from mild to severe constant generalized aching pain all over. She further admits that over the last 2 days she has been having very dark malodorous urine and has noticed a fever with chills as well as diaphoresis and her blood sugar has been uncontrollable. She denies prior similar episodes and has not identified any aggravating or ameliorating factors for her malaise. In the emergency room she was found to have a significant urinary tract infection with bilateral pyelonephritis noted on CT scan. Patient was subsequently admitted to the hospital for further evaluation and treatment. Hospital Course Hospital Course: DENAE PEDERSEN is a 53 year old female with a PMH of AFIB, tobacco and substance abuse. She presented the emergency room with a one-week history of progressively worsening malaise. CT showed bilateral pyelonephritis. Patient was admitted to the hospitalist service for pyelonephritis. The patient was initially treated with ceftriaxone IV. The patient remained afebrile and nontoxic. Cultures and sensitivities reveal pansensitive E. coli. Per IDSA guidelines, plan to switch patient to ciprofloxacin, 500 milligrams p.o. twice daily for 7 days. Initial blood cultures had positive for GNR, but this is likely contaminant. Repeat blood cultures are negative x24 hours. For further information regarding this patient's hospitalization, please refer to the EMR. Physical Exam Vital Signs: Temp Pulse Resp BP Pulse Ox 98.7 F 72 18 130/71 H 97 10/24/18 07:36 10/24/18 07:36 10/24/18 07:36 10/24/18 07:36 10/24/18 07:36 Intake & Output 10/23/18 10/24/18 10/25/18 06:59 06:59 06:59 Intake Total 3557 1950 Output Total 200 Balance 3357 1950 Weight 76.5 kg 76.7 kg General appearance: PRESENT: no acute distress, well-developed, well-nourished Head exam: PRESENT: atraumatic, normocephalic Eye exam: PRESENT: conjunctiva pink, EOMI, PERRLA. ABSENT: scleral icterus Ear exam: PRESENT: normal external ear exam Mouth exam: PRESENT: moist, tongue midline Neck exam: ABSENT: carotid bruit, JVD, lymphadenopathy, thyromegaly Respiratory exam: PRESENT: clear to auscultation heather. ABSENT: rales, rhonchi, wheezes Cardiovascular exam: PRESENT: RRR. ABSENT: diastolic murmur, rubs, systolic murmur Pulses: PRESENT: normal dorsalis pedis pul Vascular exam: PRESENT: normal capillary refill GI/Abdominal exam: PRESENT: normal bowel sounds, soft. ABSENT: distended, guarding, mass, organolmegaly, rebound, tenderness Rectal exam: PRESENT: deferred Extremities exam: PRESENT: full ROM. ABSENT: calf tenderness, clubbing, pedal edema Neurological exam: PRESENT: alert, awake, oriented to person, oriented to place, oriented to time, oriented to situation, CN II-XII grossly intact. ABSENT: motor sensory deficit Psychiatric exam: PRESENT: appropriate affect, normal mood. ABSENT: homicidal ideation, suicidal ideation Skin exam: PRESENT: dry, intact, warm. ABSENT: cyanosis, rash Results Laboratory Results: 10/24/18 06:29 10/24/18 06:29 10/24/18 10/24/18 06:29 06:29 WBC 8.9 RBC 4.01 Hgb 11.0 L Hct 32.8 L MCV 82 MCH 27.5 MCHC 33.6 RDW 14.5 H Plt Count 249 Seg Neutrophils % 56.7 Lymphocytes % 27.9 Monocytes % 13.4 H Eosinophils % 1.7 Basophils % 0.3 Absolute Neutrophils 5.0 Absolute Lymphocytes 2.5 Absolute Monocytes 1.2 Absolute Eosinophils 0.2 Absolute Basophils 0.0 Sodium 138.7 Potassium 4.4 Chloride 105 Carbon Dioxide 26 Anion Gap 8 BUN 17 Creatinine 0.83 Est GFR ( Amer) > 60 Est GFR (Non-Af Amer) > 60 Glucose 210 H Calcium 9.7 Magnesium 1.8 10/22/18 17:10 Catheterized Urine Urine Culture - Final Escherichia Coli 10/22/18 10/22/18 17:00 17:00 Creatine Kinase 37 Troponin I < 0.012 Impressions: Abdomen/Pelvis CT 10/22/18 19:52 IMPRESSION: Abnormal bilateral renal enhancement compatible with pyelonephritis. Findings compatible with a myomatous uterus. Status: Imported from PACS Qualifiers - * PATIENT BEING DISCHARGED WITH ANY OF THE FOLLOWING DIAGNOSIS: No Acute Heart Failure Is this a Heart Failure Patient?: No Plan Discharge Plan: DISCHARGE HOME WITH CIPRO 500MG PO BID X 7 DAYS Time Spent: Less than 30 Minutes
[2018-10-24] MEDS: DOCUSATE SODIUM 100 MG CAPSULE PO SCH (09:56)
[2018-10-24] MEDS: BUSPIRONE HCL 10 MG TABLET PO SCH (09:57)
[2018-10-24] MEDS: APIXABAN 5 MG TABLET PO SCH (09:57)
[2018-10-24] MEDS: FAMOTIDINE 20 MG TABLET PO SCH (09:57)
[2018-10-24] MEDS ORDERED: CIPROFLOXACIN HCL 500 MG TABLET PO SCH (10:00)
[2018-10-24 10:11] VITALS: BP 138/70
== END 2018-10-24 10:17 | disposition home or self-care (01) | DRG 690 ==
LOC: ER 16:34 → EH 22:09 → 2N 23:59
PROVIDERS: ADMIT Emergency Medicine; ATTEND Emergency Medicine
PROC: 3E0F73Z Introduction of Anti-inflammatory into Respiratory Tract, Via Natural or Artificial Opening (ICD-10-PCS; principal; 2018-10-22)
DX: N12 Tubulo-interstitial nephritis, not specified as acute or chronic (principal); E11.9 Type 2 diabetes mellitus without complications; F17.200 Nicotine dependence, unspecified, uncomplicated; B96.20 Unspecified Escherichia coli [E. coli] as the cause of diseases classified elsewhere; F19.10 Other psychoactive substance abuse, uncomplicated; I48.0 Paroxysmal atrial fibrillation; Z83.3 Family history of diabetes mellitus; Z79.899 Other long term (current) drug therapy; Z79.4 Long term (current) use of insulin; Z79.01 Long term (current) use of anticoagulants
CPT/HCPCS: 36415; 74177; 80048; 80053; 80061; 80307; 81001; 82550; 82803; 82962; 83036; 83605; 83735; 84439; 84443; 84481; 84484; 85025; 87040; 87077; 87086; 87088; 87186; 93005; 93010; 96361; 96365; 96375; 99285; J0696; J1815; J1885; J3490; J7030; J7060; J7120

== ENCOUNTER → 2018-11-08 | Outpatient (CLI) | payer MEDICAID ==
--- NOTE | 2018-11-08 12:21 | RADIOLOGY REPORT (SQ) ---
EXAM DESCRIPTION: SHOULDER RIGHT 2 OR MORE VIEWS COMPLETED DATE/TIME: 11/08/2018 11:41 am REASON FOR STUDY: M25.511 RIGHT SHOULDER PAIN COMPARISON: None. NUMBER OF VIEWS: Three views. TECHNIQUE: Internal rotation, external rotation, and Y view images acquired of the right shoulder. LIMITATIONS: None. FINDINGS: MINERALIZATION: Normal. BONES: No acute fracture or dislocation. No worrisome bone lesions. JOINTS: No dislocation. VISUALIZED LUNGS AND RIBS: No pneumothorax. No rib fracture. SOFT TISSUES: No radiopaque foreign body. OTHER: No other significant finding. IMPRESSION: NEGATIVE STUDY OF THE RIGHT SHOULDER. NO RADIOGRAPHIC EVIDENCE OF ACUTE INJURY. TECHNICAL DOCUMENTATION: JOB ID: [id number] [employer]- All Rights Reserved Reading location - IP/workstation name: [email or web address]
--- NOTE | 2018-11-08 12:22 | RADIOLOGY REPORT (SQ) ---
EXAM DESCRIPTION: HIP BILATERAL COMPLETED DATE/TIME: 11/08/2018 11:41 am REASON FOR STUDY: M25.551 BILATERAL HIP PAIN COMPARISON: None. NUMBER OF VIEWS: Two views. TECHNIQUE: AP pelvis and additional frog-leg view of the right and left hip. LIMITATIONS: None. FINDINGS: MINERALIZATION: Normal. PRIMARY HIP: No fracture or dislocation. No worrisome bone lesions. OPPOSITE HIP: No fracture or dislocation. No worrisome bone lesions. PUBIS AND ISCHIUM: No fracture. PELVIS: No fracture. SACRUM: No fracture or dislocation. No worrisome bone lesions. LOWER LUMBAR SPINE: No fracture or dislocation. No worrisome bone lesions. No significant disc disea se. SOFT TISSUES: No findings. OTHER: No other significant finding. IMPRESSION: NEGATIVE STUDY OF THE RIGHT AND LEFT HIPS AND PELVIS. NO RADIOGRAPHIC EVIDENCE OF ACUTE INJURY. TECHNICAL DOCUMENTATION: JOB ID: [id number] [employer]- All Rights Reserved Reading location - IP/workstation name: [email or web address]
== END ==
LOC: RAD 11:11
PROVIDERS: ATTEND Nurse Practitioner Primary Care
DX: M25.511 Pain in right shoulder (principal)
CPT/HCPCS: 73522

== ENCOUNTER 2019-06-30 16:04 | Emergency (ER) | payer MEDICAID ==
[2019-06-30 16:35] VITALS: BP 138/62
--- NOTE | 2019-06-30 16:54 | ER Document Report ---
ED Medical Screen (RME) - General Chief Complaint: STD Exposure Stated Complaint: VAGINAL ITCHING Time Seen by Provider: 06/30/19 16:36 Primary Care Provider: ARNOLD FRAIRE FNP-C [Primary Care Provider] - Follow up as needed Information source: Patient Notes: Patient presents complaining of vaginal discharge. Patient would like to be evaluated for this discharge. Patient also states that she went to her primary doctor and had a positive RPR test. Patient states she does have a history of syphilis that was treated 10 years ago. I have greeted and performed a rapid initial assessment of this patient. A comprehensive ED assessment and evaluation of the patient, analysis of test results and completion of the medical decision making process will be conducted by additional ED providers. TRAVEL OUTSIDE OF THE [place] IN LAST 30 DAYS: No - Related Data Allergies/Adverse Reactions: No Known Allergies Allergy (Verified 06/30/19 16:37) Past Medical History - Past Medical History Cardiac Medical History: Reports: Hx Atrial Fibrillation Denies: Hx Coronary Artery Disease, Hx Heart Attack, Hx Hypertension Pulmonary Medical History: Denies: Hx Asthma, Hx COPD Neurological Medical History: Denies: Hx Seizures Endocrine Medical History: Reports: Hx Diabetes Mellitus Type 2. Denies: Hx Diabetes Mellitus Type 1, Hx Hyperthyroidism, Hx Hypothyroidism Renal/ Medical History: Denies: Hx Peritoneal Dialysis GI Medical History: Denies: Hx Cirrhosis, Hx Hepatitis Musculoskeltal Medical History: Denies Hx Arthritis, Denies Hx Gout Skin Medical History: Denies Hx Eczema, Denies Hx Psoriasis Infectious Medical History: Denies: Hx Hepatitis Physical Exam - Vital signs Vitals: Temp Pulse Resp BP Pulse Ox 98.7 F 86 16 138/62 H 97 06/30/19 16:34 06/30/19 16:34 06/30/19 16:34 06/30/19 16:34 06/30/19 16:34 - General General appearance: Appears well, Alert In distress: None Notes: Abdomen nontender Course - Vital Signs Vital signs: Temp Pulse Resp BP Pulse Ox 98.7 F 86 16 138/62 H 97 06/30/19 16:34 06/30/19 16:34 06/30/19 16:34 06/30/19 16:34 06/30/19 16:34 Doctor's Discharge - Discharge Referrals: YEE,ARNOLD E, [employer]-C [Primary Care Provider] - Follow up as needed
[2019-06-30] MEDS ORDERED: PENICILLIN G BENZATHINE 1.2 MILLION UNIT/2 ML DISP.SYRIN IM ONE (17:25)
== END 2019-06-30 20:19 | disposition left against medical advice (07) ==
LOC: ER 16:04
DX: Z53.21 Procedure and treatment not carried out due to patient leaving prior to being seen by health care provider (principal); Z20.2 Contact with and (suspected) exposure to infections with a predominantly sexual mode of transmission; E11.9 Type 2 diabetes mellitus without complications
CPT/HCPCS: 99281; 96372; J0561

== ENCOUNTER 2019-10-07 10:07 | Emergency (ER) | payer MEDICAID ==
--- NOTE | 2019-10-07 10:45 | RADIOLOGY REPORT (SQ) ---
EXAM DESCRIPTION: CHEST SINGLE VIEW IMAGES COMPLETED DATE/TIME: 10/07/2019 10:34 am REASON FOR STUDY: bed 6 sepsis protcol COMPARISON: 2018 NUMBER OF VIEWS: One view. TECHNIQUE: Single frontal radiographic view of the chest acquired. LIMITATIONS: None. FINDINGS: LUNGS AND PLEURA: No opacities, masses or pneumothorax. No pleural effusion. MEDIASTINUM AND HILAR STRUCTURES: No masses. Contour normal. HEART AND VASCULAR STRUCTURES: Heart normal in size. Normal vasculature. BONES: No acute findings. HARDWARE: None in the chest. OTHER: No other significant finding. IMPRESSION: NO SIGNIFICANT RADIOGRAPHIC FINDING IN THE CHEST. TECHNICAL DOCUMENTATION: JOB ID: [id number] 2010 [employer]- All Rights Reserved Reading location - IP/workstation name: [email or web address]
[2019-10-07 10:47] LABS: ABSOLUTE MONOCYTES (AUTO) 0.2 10^3/uL (0.1-1.4); ABSOLUTE NEUT (AUTO) 8.1 10^3/uL (1.7-8.2); BASOPHILS % (AUTO) 0.4 % (0-2); EOSINOPHILS % (AUTO) 0.3 % (0-6); HEMATOCRIT 39.4 % (36.0-47.0); HEMOGLOBIN 13.8 g/dL (12.0-15.5); LYMPHOCYTES % (AUTO) 10.6 % (13-45); MEAN CORPUSCULAR HEMOGLOBIN 28.9 pg (27.0-33.4); MEAN CORPUSCULAR HGB CONC 35.1 g/dL (32.0-36.0); MEAN CORPUSCULAR VOLUME 83 fl (80-97); MONOCYTES % (AUTO) 2.3 % (3-13); PLATELET COUNT 210 10^3/uL (150-450); RED BLOOD COUNT 4.78 10^6/uL (3.72-5.28); SEGMENTED NEUTROPHILS % (AUTO) 86.4 % (42-78); TOTAL CELLS COUNTED % (AUTO) 100 %; VENOUS BLOOD BASE EXCESS 2.8 mmol/L; VENOUS BLOOD HCO3 27.2 mmol/L (20-32); VENOUS BLOOD PCO2 41.3 mmHg (35-63); VENOUS BLOOD PH 7.44 (7.30-7.42); WHITE BLOOD COUNT 9.4 10^3/uL (4.0-10.5)
[2019-10-07 10:52] LABS: INTERNATIONAL RATION (INR) 1.35; PROTHROMBIN TIME 16.8 SEC (11.4-15.4)
[2019-10-07 10:53] LABS: APPEARANCE,URINE SLIGHTLY-CLOUDY; BILIRUBIN,URINE NEGATIVE (NEGATIVE); COLOR,URINE YELLOW; GLUCOSE, URINE 50 mg/dL (NEGATIVE); KETONES,URINE NEGATIVE (NEGATIVE); PROTEIN,URINE 30 mg/dL (NEGATIVE); URINE SPECIFIC GRAVITY 1.008; UROBILINOGEN,URINE NEGATIVE mg/dL (<2.0)
[2019-10-07 11:03] LABS: ALBUMIN 3.9 g/dL (3.5-5.0); ALKALINE PHOSPHATASE 96 U/L (38-126); ANION GAP 6 (5-19); ASPARTATE AMINO TRANSFERASE 32 U/L (14-36); BLOOD UREA NITROGEN 23 mg/dL (7-20); CARBON DIOXIDE 27 mmol/L (22-30); CHLORIDE 104 mmol/L (98-107); GLUCOSE 173 mg/dL (75-110); POTASSIUM 4.4 mmol/L (3.6-5.0)
[2019-10-07 11:04] LABS: BILIRUBIN,TOTAL 0.7 mg/dL (0.2-1.3); TOTAL PROTEIN 7.2 g/dL (6.3-8.2)
--- NOTE | 2019-10-07 11:17 | ER Document Report ---
ED General - General Chief Complaint: Fever Stated Complaint: FEVER/CHILLS/DRY COUGH Time Seen by Provider: 10/07/19 10:39 Primary Care Provider: ARNOLD FRAIRE FNP-C [Primary Care Provider] - Follow up as needed TRAVEL OUTSIDE OF THE [place] IN LAST 30 DAYS: No - HPI Notes: Patient is a 54-year-old female with a history of diabetes, paroxysmal atrial fibrillation, who presents emergency department for evaluation of fever, headache, cough, body aches. She states yesterday after going out to eat, she started feeling poorly. She started developing body aches. She admits he has a chronic cough but states that it was slightly worse. She was found in bed this morning shivering uncontrollably, with a fever of 102. Patient states in addition to coughing and body aches she has had some urinary frequency. She states her blood sugars have been relatively well controlled for her, last reading was around 180. She denies any dysuria. She states she has not had a bowel movement in the last 2 days, which is abnormal. But she is also states that she has not been eating. No diarrhea. She is not been exposed to coronavirus, not traveled outside of the area. She does continue to smoke. - Related Data Allergies/Adverse Reactions: No Known Allergies Allergy (Verified 06/30/19 16:37) Home Medications: Obtained from patient's verbal recall. States "my medical records are here". Preeti Centeno, Past Medical History - General Information source: Patient - Social History Smoking Status: Current Every Day Smoker Frequency of alcohol use: Occasional Drug Abuse: None Family History: DM. denies: CAD, Hypertension, Malignancy Patient has homicidal ideation: No - Past Medical History Cardiac Medical History: Reports: Hx Atrial Fibrillation, Hx Congestive Heart Failure Denies: Hx Coronary Artery Disease, Hx Heart Attack, Hx Hypertension Pulmonary Medical History: Denies: Hx Asthma, Hx COPD Neurological Medical History: Denies: Hx Seizures Endocrine Medical History: Reports: Hx Diabetes Mellitus Type 2. Denies: Hx Diabetes Mellitus Type 1, Hx Hyperthyroidism, Hx Hypothyroidism Renal/ Medical History: Denies: Hx Peritoneal Dialysis GI Medical History: Denies: Hx Cirrhosis, Hx Hepatitis Musculoskeletal Medical History: Denies Hx Arthritis, Denies Hx Gout Skin Medical History: Denies Hx Eczema, Denies Hx Psoriasis Infectious Medical History: Denies: Hx Hepatitis Review of Systems - Review of Systems Constitutional: See HPI Respiratory: See HPI Gastrointestinal: See HPI Genitourinary: See HPI -: Yes All other systems reviewed and negative Physical Exam - Vital signs Vitals: Temp 100.2 F 10/07/19 10:19 - Notes Notes: Vital signs reviewed, please refer to chart. Head is normocephalic, atraumatic. Pupils equal round, reactive to light. Oral mucosa is moist, pharynx is without erythema or exudate. Uvula is midline. Neck is supple without meningismus. Heart is regular rate and rhythm. Lungs are clear to auscultation bilaterally. Abdomen is soft, nontender, normoactive bowel sounds throughout. No CVA tenderness noted. Extremities without cyanosis, clubbing. Posterior calves are nontender. Peripheral pulses are equal. Skin is warm and dry. Patient is awake, alert, neurological exam is nonfocal. Course - Re-evaluation Re-evalutation: 10/07/19 11:17 Patient presents emergency department for evaluation. She was found to be febrile upon arrival of EMS, they administered Tylenol. Patient does have a history of congestive heart failure. Will review records to see if she has any systolic failure history. At any rate she is given 2 L of normal saline, s omewhat short of the 30 cc/kg bolus, but will reevaluate. At this point she is not tachycardic. She has normal respiratory rate. She is oxygenating well. Her blood pressure is normal. She has no leukocytosis. She does not appear to meet sepsis criteria at this moment. We will continue to monitor. 10/07/19 11:26 Patient's urinalysis reveals a nitrate positive specimen. Is sent for culture. I reviewed prior urine cultures. She has had pansensitive E. coli in the past. Given her status is a diabetic I did order 1 g of IV Rocephin. Again she does not meet sepsis criteria at this point. We will continue to monitor. 10/07/19 12:35 Patient remained stable. She is able to eat some food here. Again she is not septic, does have UTI. She was given ceftriaxone, will send home with Keflex. The importance of urine rechecked was stressed at this diabetic patient and she voiced understanding. Otherwise she is to return to the ED with worsening. - Vital Signs Vital signs: Temp Pulse Resp BP Pulse Ox 100.2 F 19 138/78 H 95 10/07/19 10:19 10/07/19 11:30 10/07/19 11:31 10/07/19 11:30 - Laboratory Result Diagrams: 10/07/19 10:20 10/07/19 10:20 Laboratory results interpreted by me: 10/07/19 10/07/19 10/07/19 10:20 10:20 10:20 Lymph % (Auto) 10.6 L [place] % (Auto) 2.3 L Seg Neutrophils % 86.4 H PT 16.8 H VBG pH BUN 23 H Est GFR (MDRD) Non-Af 56 L Glucose 173 H Urine Protein Urine Glucose (UA) Urine Blood Urine Nitrite (Reflex) Leukocyte Esterase Rfl 10/07/19 10/07/19 10:20 10:40 Lymph % (Auto) [place] % (Auto) Seg Neutrophils % PT VBG pH 7.44 H BUN Est GFR (MDRD) Non-Af Glucose Urine Protein 30 H Urine Glucose (UA) 50 H Urine Blood MODERATE H Urine Nitrite (Reflex) POSITIVE H Leukocyte Esterase Rfl LARGE H - Diagnostic Test Radiology reviewed: Reports reviewed - EKG Interpretation by Me Additional EKG results interpreted by me: 10/07/19 11:17 Sinus mechanism with rate of 87 bpm. Normal axis and intervals. No acute ST changes concerning for ischemia or infarction. Discharge - Discharge Clinical Impression: Urinary tract infection Qualifiers: Urinary tract infection type: site unspecified Hematuria presence: without hematuria Qualified Code(s): N39.0 - Urinary tract infection, site not specified Condition: Stable Disposition: HOME, SELF-CARE Instructions: Fever ([facility]), Urinary Tract Infection ([facility]) Additional Instructions: Stay hydrated with small, frequent sips of fluids. Take all the antibiotic as prescribed until gone. If you develop worsening fever, vomiting, increased pain, or any other new or concerning symptoms, please return immediately to the emergency department for reevaluation. Otherwise, follow-up with your primary care provider next week, and have your urine rechecked. Referrals: ARNOLD FRAIRE FNP-C [Primary Care Provider] - Follow up as needed
[2019-10-07] MEDS: NORMAL SALINE 1000 ML 1,000 ML IV PRN ×2 (11:24→12:24)
[2019-10-07] MEDS ORDERED: CEFTRIAXONE 1 GM/D5W RTU 1 GM/50 ML RTUPB IV ONE (11:26)
[2019-10-07 14:16] VITALS: BP 153/87
--- NOTE | 2019-10-07 21:25 | EKG REPORT ---
SEVERITY:- NORMAL ECG - SINUS RHYTHM : Confirmed by: Abbie Wood MD 07-Oct-2019 21:24:44
== END 2019-10-07 14:38 | disposition home or self-care (01) ==
LOC: ER 10:07
DX: N39.0 Urinary tract infection, site not specified (principal); R50.9 Fever, unspecified; M79.10 Myalgia, unspecified site; F17.200 Nicotine dependence, unspecified, uncomplicated; I48.91 Unspecified atrial fibrillation; I50.9 Heart failure, unspecified; E11.9 Type 2 diabetes mellitus without complications; Z79.02 Long term (current) use of antithrombotics/antiplatelets; Z79.4 Long term (current) use of insulin
CPT/HCPCS: 93005; 99284; 96361; 96365; 36415; 87040; 87086; 83605; 85025; 85610; 87088; 80053; 81001; 87186; 82803; 71045; 93010; J7030; J0696

== ENCOUNTER 2019-12-19 21:42 | Emergency (ER) | payer MEDICAID ==
[2019-12-19 22:18] LABS: ABSOLUTE EOSINOPHILS # (AUTO) 0.1 10^3/uL (0.0-0.6); ABSOLUTE LYMPHOCYTES (AUTO) 1.5 10^3/uL (0.5-4.7); ABSOLUTE MONOCYTES (AUTO) 0.3 10^3/uL (0.1-1.4); ABSOLUTE NEUT (AUTO) 8.6 10^3/uL (1.7-8.2); BASOPHILS % (AUTO) 0.4 % (0-2); EOSINOPHILS % (AUTO) 1.2 % (0-6); HEMATOCRIT 39.4 % (36.0-47.0); HEMOGLOBIN 13.3 g/dL (12.0-15.5); LYMPHOCYTES % (AUTO) 14.2 % (13-45); MEAN CORPUSCULAR HEMOGLOBIN 27.7 pg (27.0-33.4); MEAN CORPUSCULAR HGB CONC 33.8 g/dL (32.0-36.0); MEAN CORPUSCULAR VOLUME 82 fl (80-97); MONOCYTES % (AUTO) 3.2 % (3-13); PLATELET COUNT 217 10^3/uL (150-450); RED CELL DISTRIBUTION WIDTH 14.6 % (11.5-14.0); TOTAL CELLS COUNTED % (AUTO) 100 %; WHITE BLOOD COUNT 10.7 10^3/uL (4.0-10.5)
[2019-12-19 22:19] LABS: INTERNATIONAL RATION (INR) 0.99; PROTHROMBIN TIME 13.1 SEC (11.4-15.4)
[2019-12-19 22:22] LABS: ALBUMIN 3.9 g/dL (3.5-5.0); ALKALINE PHOSPHATASE 69 U/L (38-126); ANION GAP 5 (5-19); ASPARTATE AMINO TRANSFERASE 30 U/L (14-36); BILIRUBIN,TOTAL 0.4 mg/dL (0.2-1.3); BLOOD UREA NITROGEN 31 mg/dL (7-20); CALCIUM 10.2 mg/dL (8.4-10.2); CARBON DIOXIDE 27 mmol/L (22-30); CHLORIDE 105 mmol/L (98-107); CREATINE KINASE 101 U/L (30-135); GLUCOSE 111 mg/dL (75-110); POTASSIUM 3.8 mmol/L (3.6-5.0); TOTAL PROTEIN 7.1 g/dL (6.3-8.2)
--- NOTE | 2019-12-19 23:02 | RADIOLOGY REPORT (SQ) ---
EXAM DESCRIPTION: XR CHEST 1 VIEW COMPLETED DATE/TME: 12/19/2019 22:05 CLINICAL HISTORY: 54 years, Female, fever COMPARISON: Prior chest radiograph from 10/07/2019 NUMBER OF VIEWS: One TECHNIQUE: Single frontal view of the chest was obtained LIMITATIONS: None. FINDINGS: Cardiac and mediastinal contours are stable. Lungs are clear. No pleural effusion or pneumothorax. IMPRESSION: No acute disease. copyright 2010 [employer]- All Rights Reserved
--- NOTE | 2019-12-19 23:06 | ER Document Report ---
ED General - General Chief Complaint: Nausea/Vomiting Stated Complaint: NAUSEA VOMITING Time Seen by Provider: 12/19/19 21:47 Primary Care Provider: ARNOLD FRAIRE FNP-C [Primary Care Provider] - Follow up as needed Mode of Arrival: Medic Information source: Patient, Emergency Med Personnel Notes: 54-year-old black female arrives with fever headache myalgias. Patient has a history of DKA A. fib IDDM polysubstance abuse with cocaine and hypertension. Patient saw her personal doctor in [place] here in [place] today and was prescribed Bactrim which she has had in the past for UTIs. She tolerates this quite well. She took it initially at 1100 and again around 1600. She reports her brother has been exposed to a person who was positive for mae virus but he himself has not been tested. He now is on quarantine. Patient had a 101 fever per EMS and was given Tylenol and Zofran for nausea. Patient had nausea and vomiting prior to their arrival. Patient also has a history of CHF and is on Eliquis for A. fib. TRAVEL OUTSIDE OF THE [place] IN LAST 30 DAYS: No - HPI Onset: This morning Onset/Duration: Sudden, Persistent Quality of pain: Achy Severity: Moderate Pain Level: 2 Associated symptoms: Body/muscle aches, Fever, Headache Exacerbated by: Movement Relieved by: Denies Similar symptoms previously: No Recently seen / treated by doctor: No - Related Data Allergies/Adverse Reactions: No Known Allergies Allergy (Verified 06/30/19 16:37) Home Medications: Eliquis. Bactrim. Lantus Past Medical History - General Information source: Patient, Emergency Med Personnel - Social History Smoking Status: Current Every Day Smoker Cigarette use (# per day): Yes Chew tobacco use (# tins/day): No Smoking Education Provided: Yes Frequency of alcohol use: Occasional - Patient reports usually drinks Connors beer but has not had any since Wednesday. She denies use of any whiskey or wine. Drug Abuse: Cocaine Lives with: Family Family History: DM. denies: CAD, Hypertension, Malignancy Patient has suicidal ideation: No Patient has homicidal ideation: No - Past Medical History Cardiac Medical History: Reports: Hx Atrial Fibrillation, Hx Congestive Heart Failure Denies: Hx Coronary Artery Disease, Hx Heart Attack, Hx Hypertension Pulmonary Medical History: Denies: Hx Asthma, Hx COPD Neurological Medical History: Denies: Hx Seizures Endocrine Medical History: Reports: Hx Diabetes Mellitus Type 2. Denies: Hx Diabetes Mellitus Type 1, Hx Hyperthyroidism, Hx Hypothyroidism Renal/ Medical History: Denies: Hx Peritoneal Dialysis GI Medical History: Denies: Hx Cirrhosis, Hx Hepatitis Musculoskeletal Medical History: Denies Hx Arthritis, Denies Hx Gout Skin Medical History: Denies Hx Eczema, Denies Hx Psoriasis Infectious Medical History: Denies: Hx Hepatitis Review of Systems - Review of Systems Constitutional: No symptoms reported, Fever, Weakness EENT: No symptoms reported Cardiovascular: No symptoms reported Respiratory: No symptoms reported Gastrointestinal: No symptoms reported Genitourinary: No symptoms reported Female Genitourinary: No symptoms reported Musculoskeletal: See HPI, Muscle pain Skin: No symptoms reported Hematologic/Lymphatic: No symptoms reported Neurological/Psychological: See HPI, Headaches Physical Exam - Vital signs Vitals: Temp Resp Pulse Ox 99.4 F 20 97 12/19/19 21:52 12/19/19 21:52 12/19/19 21:52 Interpretation: Tachypneic, Febrile - General General appearance: Alert - HEENT Head: Normocephalic, Atraumatic Eyes: Normal Pupils: PERRL Mouth/Lips: Normal Mucous membranes: Normal Pharynx: Normal Neck: Normal - Respiratory Respiratory status: No respiratory distress Chest status: Nontender Breath sounds: Normal Chest palpation: Normal - Cardiovascular Rhythm: Regular Heart sounds: Normal auscultation Murmur: No - Rectal Hemorrhoids: Other - deferred - Genitourinary Bimanuel exam: Other - deferred - Back Back: Normal - Extremities General upper extremity: Normal inspection, Nontender, Normal color, Normal ROM, Normal temperature General lower extremity: Normal inspection, Nontender, Normal color, Normal ROM, Normal temperature, Normal weight bearing. No: Rafia's sign - Neurological Neuro grossly intact: Yes Cognition: Normal Orientation: AAOx4 Alem Coma Scale Eye Opening: Spontaneous [place] Coma Scale Verbal: Oriented [place] Coma Scale Motor: Obeys Commands [place] Coma Scale Total: 15 Speech: Normal Motor strength normal: LUE, RUE, LLE, RLE Sensory: Normal - Psychological Associated symptoms: Normal affect - Skin Skin Temperature: Warm Skin Moisture: Dry Course - Vital Signs Vital signs: Temp Pulse Resp BP Pulse Ox 99.4 F 14 128/68 H 98 12/19/19 21:54 12/20/19 06:01 12/20/19 06:01 12/20/19 06:01 - Laboratory Result Diagrams: 12/19/19 21:48 12/19/19 21:48 Laboratory results interpreted by me: 12/19/19 12/19/19 12/19/19 21:48 21:48 21:48 WBC 10.7 H RDW 14.6 H Absolute Neuts (auto) 8.6 H Seg Neutrophils % 81.0 H BUN 31 H Est GFR ( Amer) 59 L Est GFR (MDRD) Non-Af 49 L Glucose 111 H NT-Pro-B Natriuret Pep 206 H Ur Leukocyte Esterase 12/20/19 02:39 WBC RDW Absolute Neuts (auto) Seg Neutrophils % BUN Est GFR ( Amer) Est GFR (MDRD) Non-Af Glucose NT-Pro-B Natriuret Pep Ur Leukocyte Esterase SMALL H Critical Care Note - Critical Care Note Comments: I discussed findings of laboratory reports with patient. Patient feels much improved this morning after antibiotics. Advised he may discontinue Septra Bactrim and continue with fluids as tolerated. Discharge - Discharge Clinical Impression: Febrile Qualifiers: Fever type: unspecified Qualified Code(s): R50.9 - Fever, unspecified UTI (urinary tract infection) Qualifiers: Urinary tract infection type: site unspecified Hematuria presence: without hematuria Qualified Code(s): N39.0 - Urinary tract infection, site not specified Condition: Good Disposition: HOME, SELF-CARE Additional Instructions: Follow-up with personal doctor today return to ER as needed take medicines as directed encourage fluids and may take Tylenol for fever 4 times daily Referrals: ARNOLD FRAIRE FNP-C [Primary Care Provider] - Follow up as needed
[2019-12-20 03:09] LABS: APPEARANCE,URINE CLEAR; BILIRUBIN,URINE NEGATIVE (NEGATIVE); COLOR,URINE YELLOW; GLUCOSE, URINE NEGATIVE (NEGATIVE); KETONES,URINE NEGATIVE (NEGATIVE); LEUKOCYTE ESTERASE,URINE SMALL (NEGATIVE); NITRITE,URINE NEGATIVE (NEGATIVE); PROTEIN,URINE NEGATIVE (NEGATIVE); URINE SPECIFIC GRAVITY 1.016; UROBILINOGEN,URINE NEGATIVE mg/dL (<2.0)
[2019-12-20 06:43] VITALS: BP 128/68
== END 2019-12-20 06:58 | disposition home or self-care (01) ==
LOC: ER 21:42
DX: N39.0 Urinary tract infection, site not specified (principal); R11.2 Nausea with vomiting, unspecified; R50.9 Fever, unspecified; R51 Headache; M79.10 Myalgia, unspecified site; F17.210 Nicotine dependence, cigarettes, uncomplicated; Z20.828 Contact with and (suspected) exposure to other viral communicable diseases; I48.91 Unspecified atrial fibrillation; I50.9 Heart failure, unspecified; E11.9 Type 2 diabetes mellitus without complications; Z79.02 Long term (current) use of antithrombotics/antiplatelets; Z79.4 Long term (current) use of insulin
CPT/HCPCS: 99283; 36415; 87040; 87086; 82962; 82550; 85025; 85610; 85730; 87635; 87088; 80053; 81001; 84484; 87186; 83880; 71045; C9803

== ENCOUNTER 2020-06-25 17:29 | Inpatient (IN) | payer MEDICAID ==
--- NOTE | 2020-06-25 17:35 | ER Document Report ---
ED General - General Chief Complaint: S/S of Possible Stroke Stated Complaint: POSSIBLE STROKE Time Seen by Provider: 06/25/20 17:34 TRAVEL OUTSIDE OF THE [place] IN LAST 30 DAYS: No - HPI Notes: 55-year-old female arrives as a code stroke from EMS. Per EMS, patient has had a dizziness for the past 2 days. Patient's brother called EMS because her slurred speech seemed worse today, onset sometime this morning, there is no official time for last known normal. EMS reports that she failed the afbxpr-wi-[id number] test and had nystagmus. Patient states that she has had a generalized weakness for the past 2 days, she states that her whole body has had felt weak and she spent most the time in bed. States that she could not do nothing, has been sleeping a lot, states she did not even have energy to get up and shower. She has had a little cough. She denies unilateral weakness or numbness. She states that she was aware that her speech was slurred this morning. She states that she did go to her orthopedic appointment with Dr. Aviles, she states that when she was talking to him around 2:30 PM, he also agreed her speech was slurred and advised her to see a doctor about that. Patient reports that her speech is better now. Patient denies fever, shortness of breath, chest pain, abdominal pain, nausea, vomiting or diarrhea. - Related Data Allergies/Adverse Reactions: No Known Allergies Allergy (Verified 06/25/20 17:55) Past Medical History - General Information source: Patient - Social History Smoking Status: Never Smoker Family History: DM. denies: CAD, Hypertension, Malignancy - Past Medical History Cardiac Medical History: Reports: Hx Atrial Fibrillation, Hx Congestive Heart Failure Denies: Hx Coronary Artery Disease, Hx Heart Attack, Hx Hypertension Pulmonary Medical History: Denies: Hx Asthma, Hx COPD Neurological Medical History: Denies: Hx Seizures Endocrine Medical History: Reports: Hx Diabetes Mellitus Type 2. Denies: Hx Diabetes Mellitus Type 1, Hx Hyperthyroidism, Hx Hypothyroidism Renal/ Medical History: Denies: Hx Peritoneal Dialysis GI Medical History: Denies: Hx Cirrhosis, Hx Hepatitis Musculoskeletal Medical History: Denies Hx Arthritis, Denies Hx Gout Skin Medical History: Denies Hx Eczema, Denies Hx Psoriasis Infectious Medical History: Denies: Hx Hepatitis Review of Systems - Review of Systems Constitutional: denies: Fever EENT: No symptoms reported Cardiovascular: denies: Chest pain Respiratory: denies: Short of breath Gastrointestinal: denies: Abdominal pain Genitourinary: denies: Dysuria Female Genitourinary: No symptoms reported Musculoskeletal: No symptoms reported Skin: No symptoms reported Hematologic/Lymphatic: No symptoms reported Neurological/Psychological: See HPI Physical Exam - Vital signs Vitals: Resp Pulse Ox 13 98 06/25/20 17:49 06/25/20 17:49 - General General appearance: Appears well, Alert In distress: None - HEENT Head: Normocephalic, Atraumatic Extraocular movements intact: Yes Pupils: PERRL - Respiratory Breath sounds: Normal - Cardiovascular Rhythm: Regular Heart sounds: Normal auscultation - Abdominal Tenderness: Nontender - Extremities General upper extremity: Normal ROM General lower extremity: Normal ROM. No: Edema - Neurological Notes: Face is symmetric, cranial nerves II through XII grossly intact. Speech is overall fluent, there is intermittently slight hesitation when speaking/prolon ging words. No overt aphasia. Strength is 5/5 in the upper extremities, no drift, sensation intact. Strength is 5/5 in the lower extremities, no drift, sensation intact. Coordination is intact. - Psychological Associated symptoms: Normal affect - Skin Skin Temperature: Warm Course - Re-evaluation Re-evalutation: 55-year-old female presents as a code stroke from EMS, slurred speech onset this morning and potentially worse today. On exam patient is alert and oriented, face is symmetric, speech is clear with potentially some dragging out of words. No expressive or receptive aphasia. Motor intact upper extremities, no drift. Motor intact to lower extremities, no drift. Sensation grossly intact. Do not appreciate nystagmus. Unfortunately, patient is not a tPA candidate given her use of Eliquis and additionally symptom onset greater than 4.5 hours prior to arrival to the emergency department. Have sent her for CT head, CTA head/neck as if an LVO were to be present she would be an interventional candidate. Is possible she is having acute CVA, possible electrolyte versus metabolic abnormality versus possible infection contributing as well. 06/25/20 18:[address] is negative. CTA head and neck are negative for LVO per radiology 06/25/20 18:32 Went to update patient on results of CTs so far. Repeat neuro exam performed. Face is symmetric, cranial nerves II through XII are grossly intact, speech is clear though intermittently will pause on a word. Strength is 5/5 in the upper extremities, no drift, sensation intact. Strength is 5/5 in the lower extremities, no drift, sensation intact. Coordination is intact. Patient noted to be using her cell phone with ease. MRI order to further evaluate for ischemia. 06/25/20 20:07 MRI does demonstrate a small acute lacunar infarct in the left basal ganglia 06/25/20 20:10 Updated patient on MRI results. She is sitting in chair watching TV, remains neurologically intact. I will discuss with hospitalist for admission for further stroke work-up 06/25/20 20:[address] Martínez for admission - Vital Signs Vital signs: Temp Pulse Resp BP Pulse Ox 98.2 F 77 16 176/91 H 95 06/25/20 17:55 06/25/20 18:08 06/25/20 19:03 06/25/20 19:03 06/25/20 19:03 - Laboratory Results Result Diagrams: 06/25/20 17:47 06/25/20 17:47 Laboratory Results Interpreted: 06/25/20 06/25/20 17:47 17:47 RDW 15.0 H Sodium 136.0 L Chloride 108 H Anion Gap 1 L BUN 25 H Est GFR (MDRD) Non-Af 56 L Glucose 196 H Critical Laboratory Results Reviewed: No Critical Results - Radiology Results Critical Radiology Results Reviewed: Yes Attending or Supervising Physician who Reviewed Radiology: LUCERO BUSTAMANTE - EKG Interpretation by Me Additional EKG results interpreted by me: EKG is interpreted by me. Sinus rhythm, rate 67. Narrow QRS, QTC within normal limits. Nonspecific ST changes. No ST segment elevation or depression. EKG appears similar to EKG dated 10/07/2019 Critical Care Note - Critical Care Note Total time excluding time spent on procedures (mins): 40 - 40 minutes of critical care time related to direct patient care, multiple reassessments, coordination of care with consultants related to acute stroke Discharge - Discharge Clinical Impression: Acute CVA (cerebrovascular accident) Disposition: ADMITTED INPATIENT Admitting Provider: [facility] Unit Admitted: Telemetry
--- NOTE | 2020-06-25 18:09 | RADIOLOGY REPORT (SQ) ---
EXAM DESCRIPTION: CT HEAD WITHOUT IMAGES COMPLETED DATE/TIME: 06/25/2020 5:47 pm REASON FOR STUDY: stroke COMPARISON: None. TECHNIQUE: Axial images acquired through the brain without intravenous contrast. Images reviewed wi th bone, brain and subdural windows. Additional sagittal and coronal reconstructions were generated. Images stored on PACS. All CT scanners at this facility use dose modulation, iterative reconstruction, and/or weight based d osing when appropriate to reduce radiation dose to as low as reasonably achievable (ALARA). [facility]: Dose Right [facility]: CareDose [facility]: Dose Right [facility]: Teradose 4D [facility]: Route4Me RADIATION DOSE: mGy. LIMITATIONS: None. FINDINGS: VENTRICLES: Normal size and contour. CEREBRUM: No masses. No hemorrhage. No midline shift. No evidence for acute infarction. Normal gra y/white matter differentiation. No areas of low density in the white matter. CEREBELLUM: No masses. No hemorrhage. No alteration of density. No evidence for acute infarction. EXTRAAXIAL SPACES: No fluid collections. No masses. ORBITS AND GLOBE: No intra- or extraconal masses. Normal contour of globe without masses. CALVARIUM: No fracture. PARANASAL SINUSES: No fluid or mucosal thickening. SOFT TISSUES: No mass or hematoma. OTHER: No other significant finding. IMPRESSION: NORMAL BRAIN CT WITHOUT CONTRAST. EVIDENCE OF ACUTE STROKE: NO. COMMENT: Pertinent positive or negative findings of the imaging study reported as a CRITICAL EXAM shane BUSTAMANTE DO at18:03 on 06/25/2020. Category of Critical Exam: Stroke alert. Quality ID # [id number]: Final reports with documentation of one or more dose reduction techniques (e.g., Au tomated exposure control, adjustment of the mA and/or kV according to patient size, use of iterative reconstruction technique) TECHNICAL DOCUMENTATION: JOB ID: [id number] 2010 [employer]- All Rights Reserved Reading location - IP/workstation name: [email or web address]
[2020-06-25 18:10] LABS: ABSOLUTE BASOPHILS # (AUTO) 0.1 10^3/uL (0.0-0.2); ABSOLUTE EOSINOPHILS # (AUTO) 0.1 10^3/uL (0.0-0.6); ABSOLUTE LYMPHOCYTES (AUTO) 2.9 10^3/uL (0.5-4.7); ABSOLUTE MONOCYTES (AUTO) 0.5 10^3/uL (0.1-1.4); ABSOLUTE NEUT (AUTO) 5.7 10^3/uL (1.7-8.2); BASOPHILS % (AUTO) 1.1 % (0-2); EOSINOPHILS % (AUTO) 1.2 % (0-6); HEMATOCRIT 36.9 % (36.0-47.0); HEMOGLOBIN 12.2 g/dL (12.0-15.5); LYMPHOCYTES % (AUTO) 31.6 % (13-45); MEAN CORPUSCULAR HEMOGLOBIN 27.1 pg (27.0-33.4); MEAN CORPUSCULAR HGB CONC 33.2 g/dL (32.0-36.0); MEAN CORPUSCULAR VOLUME 82 fl (80-97); MONOCYTES % (AUTO) 5.1 % (3-13); PLATELET COUNT 236 10^3/uL (150-450); RED BLOOD COUNT 4.52 10^6/uL (3.72-5.28); TOTAL CELLS COUNTED % (AUTO) 100 %; WHITE BLOOD COUNT 9.3 10^3/uL (4.0-10.5)
--- NOTE | 2020-06-25 18:13 | RADIOLOGY REPORT (SQ) ---
EXAM DESCRIPTION: CTA HEAD IMAGES COMPLETED DATE/TIME: 06/25/2020 5:47 pm REASON FOR STUDY: stroke COMPARISON: None. TECHNIQUE: Post IV contrast scanning, thin section axial imaging through the brain to evaluate the a rterial structures. Source and MIP images are saved and reviewed on PACS. Advanced 3D imaging as volume-rendering, MIPs, SSD performed? yes All CT scanners at this facility use dose modulation, iterative reconstruction, and/or weight based d osing when appropriate to reduce radiation dose to as low as reasonably achievable (ALARA). [facility]: Dose Right [facility]: CareDose [facility]: Dose Right [facility]: Teradose 4D [facility]: Smart MENABANQER CONTRAST TYPE AND DOSE: Type and dose of contrast not recorded here. Refer to the technologist's no jo ann. RENAL FUNCTION: Not recorded here. Refer to technologist's notes. LIMITATIONS: None. FINDINGS: [place]: The anterior, middle, posterior cerebral arteries are all patent. No ev idence of aneurysm or focal stenosis. POSTERIOR CIRCULATION: The distal vertebral arteries are patent as is the basilar artery. No aneurysm . BRAIN: No gross enhancing lesions as visualized. The superior cerebral hemispheres are not included in the field of view. BONES: Intact as visualized. SINUSES: No fluid or mucosal thickening. OTHER: No other significant finding. IMPRESSION: NO CTA EVIDENCE OF STENOSIS OR ANEURYSM OF THE [place]. TECHNICAL DOCUMENTATION: JOB ID: [id number] Quality ID # [id number]: Final reports with documentation of one or more dose reduction techniques (e.g., Au tomated exposure control, adjustment of the mA and/or kV according to patient size, use of iterative reconstruction technique) 2010 [employer]- All Rights Reserved Reading location - IP/workstation name: [email or web address]
--- NOTE | 2020-06-25 18:15 | RADIOLOGY REPORT (SQ) ---
EXAM DESCRIPTION: CTA NECK IMAGES COMPLETED DATE/TIME: 06/25/2020 5:47 pm REASON FOR STUDY: stroke COMPARISON: None. TECHNIQUE: Axial dynamic scanning technique with dynamic contrast enhancement through the extra-aircraft engine assembler nial carotid and vertebral arteries. Multiplanar reconstruction. 3-D MIPS and Volume-rendered imag es acquired at the workstation and saved to PACS. Images are reviewed in soft tissue, bone, lung w indows. All CT scanners at this facility use dose modulation, iterative reconstruction, and/or weight based d osing when appropriate to reduce radiation dose to as low as reasonably achievable (ALARA). [facility]: Dose Right [facility]: CareDose [facility]: Dose Right [facility]: Teradose 4D [facility]: Smart Made[employer]Cloud CONTRAST TYPE AND DOSE: Type and dose of contrast not recorded here. Refer to the technologist's no jo ann. RENAL FUNCTION: Testing waived by the emergency room physician. LIMITATIONS: None. FINDINGS: AORTIC ARCH: Normal three-vessel origin. Bilateral subclavian arteries are patent. No d issection. RIGHT CAROTIDS: Patent common, internal and external carotid arteries without suggestion of significa nt stenosis or irregular plaque. No dissection. Tortuous ICA. RIGHT VERTEBRAL: Patent. No dissection. LEFT CAROTIDS: Patent common, internal and external carotid arteries without suggestion of significan t stenosis or irregular plaque. No dissection. Tortuous ICA. LEFT VERTEBRAL: Patent. No dissection. OTHER: No other significant finding. OTHER: 3-D reconstructions confirm findings. IMPRESSION: NORMAL CTA OF THE EXTRA-CRANIAL CAROTID AND VERTEBRAL ARTERIES. COMMENT: Quality ID #[id number]: Measurements of distal internal carotid diameter were used as the denomina tor for stenosis measurement. TECHNICAL DOCUMENTATION: JOB ID: [id number] Quality ID # [id number]: Final reports with documentation of one or more dose reduction techniques (e.g., Au tomated exposure control, adjustment of the mA and/or kV according to patient size, use of iterative reconstruction technique) 2010 [employer]- All Rights Reserved Reading location - IP/workstation name: [email or web address]
--- NOTE | 2020-06-25 18:17 | RADIOLOGY REPORT (SQ) ---
EXAM DESCRIPTION: CHEST SINGLE VIEW IMAGES COMPLETED DATE/TIME: 06/25/2020 5:45 pm REASON FOR STUDY: stroke COMPARISON: 12/19/2019 EXAM PARAMETERS: NUMBER OF VIEWS: One view. TECHNIQUE: Single frontal radiographic view of the chest acquired. RADIATION DOSE: NA LIMITATIONS: None. FINDINGS: LUNGS AND PLEURA: No opacities, masses or pneumothorax. No pleural effusion. MEDIASTINUM AND HILAR STRUCTURES: No masses. Contour normal. HEART AND VASCULAR STRUCTURES: Heart normal in size. Normal vasculature. BONES: No acute findings. HARDWARE: None in the chest. OTHER: No other significant finding. IMPRESSION: NO ACUTE RADIOGRAPHIC FINDING IN THE CHEST. TECHNICAL DOCUMENTATION: JOB ID: [id number] 2010 [employer]- All Rights Reserved Reading location - IP/workstation name: [email or web address]
[2020-06-25 18:18] LABS: INTERNATIONAL RATION (INR) 0.96
[2020-06-25 18:19] LABS: PARTIAL THROMBOPLASTIN TIME 26.3 SEC (23.5-35.8)
[2020-06-25 18:26] LABS: BLOOD UREA NITROGEN 25 mg/dL (7-20); CALCIUM 9.1 mg/dL (8.4-10.2); CARBON DIOXIDE 27 mmol/L (22-30); CHLORIDE 108 mmol/L (98-107); GLUCOSE 196 mg/dL (75-110)
[2020-06-25 18:27] LABS: ANION GAP 1 (5-19)
[2020-06-25] MEDS ORDERED: NORMAL SALINE 500 ML IV ONE (18:33)
[2020-06-25] MEDS ORDERED: MECLIZINE HCL 25 MG TABLET PO ONE (18:33)
--- NOTE | 2020-06-25 20:00 | RADIOLOGY REPORT (SQ) ---
EXAM DESCRIPTION: MRI HEAD WITHOUT IMAGES COMPLETED DATE/TIME: 06/25/2020 7:50 pm REASON FOR STUDY: eval CVA COMPARISON: None. TECHNIQUE: Multiplanar imaging includes non-contrasted T1, T2, FLAIR, and diffusion with ADC map seq uences. Images stored on PACS. LIMITATIONS: None. FINDINGS: ANATOMY: No anomalies. Normal vascular flow voids. Pituitary fossa normal. CSF SPACES: Normal in size and contour. No hemorrhage. CEREBRUM: Sulci and gyri normal in size and contour. Normal white matter signal on FLAIR imaging. No evidence of hemorrhage, mass, or extraaxial fluid collection. POSTERIOR FOSSA: No signal alteration. No hemorrhage. No edema, masses or mass effect. Internal sasha tory canals, cerebello-pontine angles, mastoids normal. DIFFUSION IMAGING: There is a focal area of abnormally restricted diffusion in the basal ganglia on t he left. ORBITS: No masses. Globes normal. PARANASAL SINUSES: No significant finding. OTHER: No other significant finding. IMPRESSION: There is small acute lacunar infarction in the left basal ganglia. EVIDENCE OF ACUTE STROKE: NO. TECHNICAL DOCUMENTATION: JOB ID: [id number] [employer]- All Rights Reserved Reading location - IP/workstation name: [email or web address]
--- NOTE | 2020-06-25 22:00 | EKG REPORT ---
SEVERITY:- ABNORMAL ECG - SINUS RHYTHM NONSPECIFIC T ABNORMALITIES, LATERAL LEADS : Confirmed by: Toi Parker MD 25-Jun-2020 21:59:14
[2020-06-25] MEDS ORDERED: DEXTROSE 50%-WATER 25 GM/50 ML DISP.SYRIN IV PRN ×2 (22:27)
[2020-06-25] MEDS ORDERED: GLUCAGON,HUMAN RECOMB 1 MG INJ IM PRN (22:27)
[2020-06-25] MEDS ORDERED: DEXTROSE 40% GEL 15 GM TUBE PO PRN ×2 (22:27)
[2020-06-25] MEDS ORDERED: ACETAMINOPHEN 325 MG TABLET PO PRN (22:30)
[2020-06-25] MEDS ORDERED: APIXABAN 5 MG TABLET PO ONE (22:30)
[2020-06-25] MEDS ORDERED: INSULIN GLARGINE,HUM.REC.ANLOG 1,000 UNIT/10 ML VIAL SUBCUT ONE (22:45)
[2020-06-25] MEDS ORDERED: DILTIAZEM HCL 60 MG TABLET PO ONE (22:45)
[2020-06-25] MEDS ORDERED: ATORVASTATIN CALCIUM 20 MG TABLET PO ONE (23:00)
[2020-06-25 23:04] LABS: APPEARANCE,URINE CLEAR; BILIRUBIN,URINE NEGATIVE (NEGATIVE); COLOR,URINE STRAW; GLUCOSE, URINE 150 mg/dL (NEGATIVE); KETONES,URINE NEGATIVE (NEGATIVE); LEUKOCYTE ESTERASE,URINE NEGATIVE (NEGATIVE); NITRITE,URINE NEGATIVE (NEGATIVE); PROTEIN,URINE NEGATIVE (NEGATIVE); UROBILINOGEN,URINE NEGATIVE mg/dL (<2.0)
[2020-06-26] MEDS ORDERED: INSULIN GLARGINE,HUM.REC.ANLOG 1,000 UNIT/10 ML VIAL (PYX) SUBCUT ONE (00:34)
--- NOTE | 2020-06-26 03:54 | PDOC H&P ---
History of Present Illness Admission Date/PCP: 06/25/20 20:25 ELICIA CUELLAR-Marv Patient complains of: Speech difficulty History of Present Illness: DENAE PEDERSEN is a 55 year old female Patient was diagnosed with paroxysmal atrial fibrillation about 1-1/2-year ago. She is supposed to be on apixaban but she is only partially compliant. She admits not taking apixaban regularly. At least half the time she is not taking it. She never had stroke or TIA before. Around 9:00 in the morning she noticed she has some difficulty speaking. She was able to say what she wanted to say but she has problem pronouncing words. In the afternoon hours she decided to come to the emergency department. MRI of the brain revealed a small left basal ganglia infarct. When I saw her she did not have any additional complaint. In the emergency department she remained in stable sinus rhythm. Past Medical History Cardiac Medical History: Reports: Atrial Fibrillation, Congestive Heart Failure - Details are unknown, unclear. Denies: Coronary Artery Disease, Myocardial Infarction, Hypertension Pulmonary Medical History: Denies: Asthma, Chronic Obstructive Pulmonary Disease (COPD) EENT Medical History: Reports: None Neurological Medical History: Reports: None Denies: Seizures Endocrine Medical History: Reports: Diabetes Mellitus Type 2 Denies: Diabetes Mellitus Type 1, Hyperthyroidism, Hypothyroidism Renal/ Medical History: Reports: None GI Medical History: Reports: None Denies: Cirrhosis, Hepatitis Musculoskeltal Medical History: Reports: Arthritis - Severe arthritis of both hip, Other - Chronic back pain Denies: Gout Skin Medical History: Denies: Eczema, Psoriasis Psychiatric Medical History: Reports: None Traumatic Medical History: Reports: None Hematology: Denies: Anemia, Bleeding Tendencies Infectious Medical History: Reports: None Past Surgical History Past Surgical History: Reports: None Social History Smoking Status: Never Smoker Frequency of Alcohol Use: None Hx Recreational Drug Use: Yes - Not currently using Drugs: Cocaine, Marijuana Hx Prescription Drug Abuse: No Family History Family History: DM. denies: CAD, Hypertension, Malignancy Parental Family History Reviewed: Yes Children Family History Reviewed: Yes Sibling(s) Family History Reviewed.: Yes Medication/Allergy Home Medications: Apixaban [Eliquis 5 mg Tablet] 5 mg PO BID tablet 10/24/18 Diltiazem HCl [Cardizem 60 mg Tablet] 60 mg PO Q8 tablet 10/24/18 Insulin Glargine,Hum.rec.anlog [Lantus Insulin 100 Unit/1 ml 10 ml] 30 units SUBCUT QPM 06/30/19 Magnesium Oxide/Magnesium [Magnesium 300 Mg Capsule] 300 mg PO QHS 06/25/20 Allergies/Adverse Reactions: No Known Allergies Allergy (Verified 06/25/20 17:55) Review of Systems Constitutional: ABSENT: chills, fever(s), headache(s), weight gain, weight loss Eyes: ABSENT: visual disturbances Cardiovascular: ABSENT: chest pain, dyspnea on exertion, edema, orthropnea, palpitations Respiratory: ABSENT: cough, hemoptysis Gastrointestinal: ABSENT: abdominal pain, constipation, diarrhea, hematemesis, hematochezia, nausea, vomiting Genitourinary: ABSENT: dysuria, hematuria Neurological: PRESENT: abnormal speech, other - She has chronic gait difficulty related to her musculoskeletal system and not to neurological disease. She is receiving outpatient physical therapy.. ABSENT: confusion, lack of coordination Hematologic/Lymphatic: ABSENT: easy bleeding, easy bruising Physical Exam Vital Signs: Temp Pulse Resp BP Pulse Ox 98.0 F 60 14 141/68 H 98 06/26/20 01:16 06/26/20 01:16 06/26/20 01:16 06/26/20 01:16 06/26/20 01:16 Intake & Output 06/24/20 06/25/20 06/26/20 06:59 06:59 06:59 Intake Total 500 Balance 500 Weight 106 kg General appearance: PRESENT: no acute distress, cooperative Head exam: PRESENT: atraumatic, normocephalic Eye exam: PRESENT: conjunctiva pink, EOMI, PERRLA. ABSENT: scleral icterus Ear exam: PRESENT: normal external ear exam Neck exam: ABSENT: carotid bruit, JVD, lymphadenopathy, thyromegaly Respiratory exam: PRESENT: clear to auscultation heather. ABSENT: rales, rhonchi, wheezes Cardiovascular exam: PRESENT: RRR. ABSENT: diastolic murmur, rubs, systolic murmur Pulses: PRESENT: normal dorsalis pedis pul Vascular exam: PRESENT: normal capillary refill GI/Abdominal exam: PRESENT: normal bowel sounds, soft. ABSENT: distended, guarding, mass, organolmegaly, rebound, tenderness Rectal exam: PRESENT: deferred Musculoskeletal exam: PRESENT: ambulatory Neurological exam: PRESENT: alert, awake, oriented to person, oriented to place, oriented to time, oriented to situation, CN II-XII grossly intact, other - Minimal dysarthria Psychiatric exam: PRESENT: appropriate affect, normal mood. ABSENT: homicidal ideation, suicidal ideation Skin exam: PRESENT: abrasion Results Laboratory Results: 06/25/20 17:47 06/25/20 17:47 06/25/20 06/25/20 06/25/20 17:47 17:47 22:44 WBC 9.3 RBC 4.52 Hgb 12.2 Hct 36.9 MCV 82 MCH 27.1 MCHC 33.2 RDW 15.0 H Plt Count 236 Seg Neutrophils % 61.0 Sodium 136.0 L Potassium 4.0 Chloride 108 H Carbon Dioxide 27 Anion Gap 1 L BUN 25 H Creatinine 1.01 Est GFR ( Amer) > 60 Glucose 196 H Calcium 9.1 Urine Color STRAW Urine Appearance CLEAR Urine pH 6.0 Ur Specific [place] 1.030 Urine Protein NEGATIVE Urine Glucose (UA) 150 H Urine Ketones NEGATIVE Urine Blood NEGATIVE Urine Nitrite NEGATIVE Ur Leukocyte Esterase NEGATIVE Urine WBC (Auto) 0 Urine RBC (Auto) 0 Impressions: Head CT 06/25/20 17:34 IMPRESSION: NORMAL BRAIN CT WITHOUT CONTRAST. EVIDENCE OF ACUTE STROKE: NO. Head CTA 06/25/20 17:34 IMPRESSION: NO CTA EVIDENCE OF STENOSIS OR ANEURYSM OF THE [place] OF [place]. Neck CTA 06/25/20 17:34 IMPRESSION: NORMAL CTA OF THE EXTRA-CRANIAL CAROTID AND VERTEBRAL ARTERIES. Chest X-Ray 06/25/20 17:35 IMPRESSION: NO ACUTE RADIOGRAPHIC FINDING IN THE CHEST. Head MRI 06/25/20 18:32 IMPRESSION: There is small acute lacunar infarction in the left basal ganglia. EVIDENCE OF ACUTE STROKE: NO. Assessment and Plan - Diagnosis (1) Acute CVA (cerebrovascular accident) Is this a current diagnosis for this admission?: Yes Plan: She has a small lacunar infarct left basal ganglia. She has minimal dysarthria but no other detectable neurological deficit at this point. She has paroxysmal atrial fibrillation but at present she is in sinus rhythm. She is noncompliant with apixaban, not taking it regularly. I discussed the importance to take apixaban regularly as it is prescribed. I explained to the patient why it is so important. She showed understanding. CT angiogram of the head and neck unremarkable. I resumed apixaban. She is going to have an echocardiogram in the morning. I started her on empiric atorvastatin 20 mg at night. Lipid panel pending. She is going to have speech therapy evaluation. She has no sign of dysphagia. She is receiving chronic physical therapy for musculoskeletal problems. She is going to have an evaluation by physical and Occupational Therapy as well. If she is doing well and no other complication arises she can be probable discharge in the afternoon. She is definitely eager to go home. (2) Paroxysmal atrial fibrillation Is this a current diagnosis for this admission?: Yes Plan: She is in sinus rhythm. She is on diltiazem 60 mg twice a day, it is prescribed 3 times a day but she is taking only twice a day. May consider switching her to long-acting preparation. Continue cardiac monitoring. 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 She may need cardiology referral. (3) Diabetes mellitus Qualifiers: Diabetes mellitus type: type 2 Diabetes mellitus snf insulin use: with snf use Diabetes mellitus complication status: without complication Qualified Code(s): E11.9 - Type 2 diabetes mellitus without complications; Z79.4 - care home (current) use of insulin Is this a current diagnosis for this admission?: Yes Plan: She is taking Lantus insulin so-called only as needed. I started her on 20 units instead of 30 to avoid hypoglycemia. Hemoglobin A1c. Monitor blood glucose, correction dose insulin as needed. I explained to her that she should take the long-acting insulin regularly, every day. (4) Substance abuse Is this a current diagnosis for this admission?: Yes Plan: Denies recent cocaine use. Check urine toxicology screen. - Plan Summary Summary: The patient who has paroxysmal atrial fibrillation and supposed to be on apixaban ,but noncompliant presented with mild dysarthria. MRI proved a small left basal ganglia infarct. She was placed in observation. - Time Time Spent with patient: 35 or more minutes Medications reviewed and adjusted accordingly: Yes Anticipated Discharge Disposition: Home, Self Care Anticipated Discharge Timeframe: within 24 hours
[2020-06-26 06:17] LABS: URINE AMPHETAMINES SCREEN NEGATIVE; URINE BARBITURATES SCREEN NEGATIVE; URINE BENZODIAZEPINES SCREEN NEGATIVE; URINE COCAINE SCREEN NEGATIVE; URINE MARIJUANA (THC) SCREEN NEGATIVE; URINE METHADONE SCREEN NEGATIVE; URINE PHENCYCLIDINE SCREEN NEGATIVE
[2020-06-26 06:31] LABS: ABSOLUTE EOSINOPHILS # (AUTO) 0.2 10^3/uL (0.0-0.6); ABSOLUTE LYMPHOCYTES (AUTO) 3.4 10^3/uL (0.5-4.7); ABSOLUTE MONOCYTES (AUTO) 0.7 10^3/uL (0.1-1.4); ABSOLUTE NEUT (AUTO) 4.7 10^3/uL (1.7-8.2); BASOPHILS % (AUTO) 0.5 % (0-2); HEMATOCRIT 37.3 % (36.0-47.0); HEMOGLOBIN 12.5 g/dL (12.0-15.5); LYMPHOCYTES % (AUTO) 37.7 % (13-45); MEAN CORPUSCULAR HEMOGLOBIN 27.7 pg (27.0-33.4); MEAN CORPUSCULAR HGB CONC 33.6 g/dL (32.0-36.0); MEAN CORPUSCULAR VOLUME 83 fl (80-97); MONOCYTES % (AUTO) 7.7 % (3-13); PLATELET COUNT 216 10^3/uL (150-450); RED BLOOD COUNT 4.51 10^6/uL (3.72-5.28); RED CELL DISTRIBUTION WIDTH 14.7 % (11.5-14.0); SEGMENTED NEUTROPHILS % (AUTO) 52.1 % (42-78); TOTAL CELLS COUNTED % (AUTO) 100 %
[2020-06-26 06:48] LABS: ALBUMIN 3.3 g/dL (3.5-5.0); ALKALINE PHOSPHATASE 64 U/L (38-126); ASPARTATE AMINO TRANSFERASE 20 U/L (14-36); BILIRUBIN,DIRECT 0.2 mg/dL (0.0-0.4); BILIRUBIN,TOTAL 0.3 mg/dL (0.2-1.3); BLOOD UREA NITROGEN 22 mg/dL (7-20); CALCIUM 9.6 mg/dL (8.4-10.2); CHOLESTEROL 201.77 mg/dL (0-200); GLUCOSE 119 mg/dL (75-110); POTASSIUM 4.3 mmol/L (3.6-5.0); TOTAL PROTEIN 6.1 g/dL (6.3-8.2); TRIGLYCERIDES 99 mg/dL (<150)
[2020-06-26 06:53] LABS: ANION GAP 5 (5-19); CARBON DIOXIDE 26 mmol/L (22-30); CHLORIDE 110 mmol/L (98-107)
[2020-06-26 06:59] LABS: DIRECT LDL 102 mg/dL (<100)
[2020-06-26] MEDS ORDERED: INSULIN LISPRO 100 UNIT/ML 3 ML VIAL SUBCUT SCH (08:00)
[2020-06-26] MEDS ORDERED: APIXABAN 5 MG TABLET PO SCH (10:00)
[2020-06-26] MEDS ORDERED: DILTIAZEM HCL 60 MG TABLET PO SCH (10:00)
[2020-06-26 12:06] VITALS: BP 122/69
--- NOTE | 2020-06-26 13:47 | Left Against Medical Advice ---
Against Medical Advice Admission Date/Time: 06/25/20 20:25 Primary Care Provider: KVNG CUELLAR Date of Patient Emigration: 06/26/20 - Diagnosis: (1) Acute CVA (cerebrovascular accident) Is this a current diagnosis for this admission?: Yes (2) Paroxysmal atrial fibrillation Is this a current diagnosis for this admission?: Yes (3) Diabetes mellitus Is this a current diagnosis for this admission?: Yes (4) Substance abuse Is this a current diagnosis for this admission?: Yes - Summary: Summary: Please see Admission and Progress Notes as well. DENAE PEDERSEN is a 55 F, who LEFT AGAINST MEDICAL ADVICE. The Patient was admitted on 06/25/20 20:25.
[2020-06-26] MEDS ORDERED: ATORVASTATIN CALCIUM 20 MG TABLET PO SCH (22:00)
[2020-06-26] MEDS ORDERED: INSULIN GLARGINE,HUM.REC.ANLOG 1,000 UNIT/10 ML VIAL SUBCUT SCH (22:00)
--- NOTE | 2020-06-28 09:29 | XCELERA REPORT ---
[address] [address] Transthoracic Echocardiogram Report Name: DENAE PEDERSEN Age: 55 yrs Gender: Female : 1965 Patient Status: Inpatient Patient Location: [address] [place], [place] [address] Study Date: 06/26/2020 09:09 AM Height: 65 in Weight: 233 lb BSA: 2.1 m2 Procedure: A complete two-dimensional transthoracic echocardiogram was performed (2D, M-mode, spectral and color flow Doppler). The study was technically good with many images being of high quality. Reason For Study: CVA, paroxysmal atrial fibrillation Ordering Physician: TERESO HINDS Performed By: Maryann Rodriguez Interpretation Summary The left ventricle is normal in size. Left ventricular systolic function is normal. The Ejection Fraction estimate is 65-70%. Doppler measurements suggest pseudonormalized left ventricular relaxation, which is associated with grade II/IV or mild to moderate diastolic dysfunction. No regional wall motion abnormalities noted. Trace MR, trace TR. No prior studies for comparison. MMode/2D Measurements & Calculations RVDd: 2.0 cm LVIDd: 4.6 cm FS: 35.7 % Ao root diam: 2.3 cm IVSd: 1.1 cm LVIDs: 2.9 cm EDV(Teich): Ao root area: 96.1 ml LVPWd: 1.1 cm 4.3 cm2 ESV(Teich): 33.4 ml EF(Teich): 65.3 % EDV(MOD-sp4): SV(MOD-sp4): 43.6 ml 31.3 ml ESV(MOD-sp4): 12.3 ml EF(MOD-sp4): 71.7 % Doppler Measurements & Calculations MV E max mikey: MV dec slope: Ao V2 max: LV V1 max P.3 cm/sec 177.6 cm/sec 6.4 mmHg MV A max mikey: 388.9 cm/sec2 Ao max PG: LV V1 max: 115.1 cm/sec MV dec time: 0.23 sec12.6 mmHg 126.5 cm/sec MV E/A: 0.79 PA V2 max: TR max mikey: 75.2 cm/sec 226.0 cm/sec PA max P.3 mmHg TR max P.4 mmHg Left Ventricle The left ventricle is normal in size. Left ventricular systolic function is normal. The Ejection Fraction estimate is 65-70%. Doppler measurements suggest pseudonormalized left ventricular relaxation, which is associated with grade II/IV or mild to moderate diastolic dysfunction. No regional wall motion abnormalities noted. Right Ventricle The right ventricle is normal in size, thickness and function. The right ventricular systolic function is normal. Atria The right atrium is normal. The left atrial size is normal. There is no Doppler evidence for an interatrial shunt. Mitral Valve The mitral valve is normal in structure and function. There is a trace amount of mitral regurgitation. Aortic Valve The aortic valve is normal in structure and functions normally. No aortic regurgitation is present. Tricuspid Valve The tricuspid is normal in structure and function. There is a trace or physiologic amount of tricuspid regurgitation. Pulmonic Valve The pulmonic valve is normal in structure and function. There is no pulmonic valvular regurgitation. Great Vessels The aortic root is normal size. The inferior vena cava appeared normal. Effusions There is no pericardial effusion. There is no pleural effusion. : TERESO HINDS Antonio
== END 2020-06-26 13:29 | disposition left against medical advice (07) | DRG 66 ==
LOC: ER 17:29 → EH 20:25 → 3W 22:37
PROVIDERS: ADMIT Internal Medicine; ATTEND Physician Assistant
PROC: B24BZZ4 Ultrasonography of Heart with Aorta, Transesophageal (ICD-10-PCS; principal; 2020-06-26)
DX: I63.81 Other cerebral infarction due to occlusion or stenosis of small artery (principal); I48.0 Paroxysmal atrial fibrillation; E11.9 Type 2 diabetes mellitus without complications; F19.10 Other psychoactive substance abuse, uncomplicated; M16.0 Bilateral primary osteoarthritis of hip; Z91.14 Patient's other noncompliance with medication regimen; Z83.3 Family history of diabetes mellitus; Z79.4 Long term (current) use of insulin; Z79.01 Long term (current) use of anticoagulants
CPT/HCPCS: 36415; 70450; 70496; 70498; 70551; 71045; 80048; 80053; 80061; 80307; 81001; 82962; 83036; 85025; 85610; 85730; 93005; 93010; 93306; 96360; 99285; G0378; J1815; J7040